=== PATIENT | male | born 1955 | race American Indian/Alaskan Native ===

== ENCOUNTER 2016-12-07 13:26 | Inpatient (IN) | payer MEDICARE ==
[2016-12-07 14:25] LABS: Eosinophils % (Auto) 1.9 % (0.0-4.3); Hemoglobin 6.4 gm/dl (11.8-15.2); Mean Corpuscular HGB Conc 32 % (32-34); Mean Corpuscular Hemoglobin 32 pg (28-32); Mean Corpuscular Volume 98 fl (84-94); Platelet Count 154 K/mm3 (140-440); Red Blood Count 2.03 M/mm3 (3.65-5.03); Red Cell Distribution Width 21.5 % (13.2-15.2); White Blood Count 6.4 K/mm3 (4.5-11.0)
[2016-12-07 14:34] LABS: Albumin/Globulin Ratio 0.6 %; BUN/Creatinine Ratio 8.35; Bilirubin,Total 0.5 mg/dL (0.1-1.2); Calcium 8.3 mg/dL (8.4-10.2); Chloride 96.6 mmol/L (98-107); Potassium 3.6 mmol/L (3.6-5.0); Total Protein 8.1 g/dL (6.3-8.2)
[2016-12-07] MEDS ORDERED: NACL 0.9% 500 ML 500 ML IV ONE (15:10)
[2016-12-07] MEDS ORDERED: DUONEB *Not for PRN Use IH (16:05)
[2016-12-07 16:11] LABS: INR 1.39 (0.87-1.13)
[2016-12-07 16:12] LABS: Partial Thromboplastin Time 40.3 Sec. (24.2-36.6)
[2016-12-07] MEDS ORDERED: PROVENTIL IH PRN (16:14)
--- NOTE | 2016-12-07 16:53 | History and Physical Report ---
History of Present Illness History of present illness: 61 YO male with ESRD on HD(T,R,Sa,) HTN, COPD, AIDS, Nicotine Dependence, presents to ED for evaluation. Pt states that he has been feeling weak and tired for the past 2 weeks, with worsening symptoms over the past 2 days. Pt states that he went to dialysis today but was told he could not have dialysis due to low RBC count. Pt denies fever, chills, CP, Palpitations, NVD, Syncope, Trauma, productive cough, or recent ill contacts. Past History Past Medical History: COPD, ESRD, hypertension, other (Nicotine Dependence) Past Surgical History: Other (AV fistula) Social history: single, smoking. denies: alcohol abuse, prescription drug abuse , IV drug use Family history: diabetes, hypertension Medications and Allergies Allergies Allergy/AdvReac Type Severity Reaction Status Date / Time No Known Allergies Allergy Unverified 12/07/16 13:48 Home Medications Medication Instructions Recorded Confirmed Last Taken Type ALBUTEROL Inhaler [ProAir HFA 8.5 gram IH Q4-6H PRN MDD 4 12/07/16 12/07/16 Unknown History Inhaler] Albuterol Sulfate [Ventolin HFA] 8 gram IH PRN PRN 12/07/16 12/07/16 Unknown History Aspirin EC [Aspirin Enteric Coated 81 mg PO DAILY 12/07/16 12/07/16 Unknown History TAB] AtorvaSTATin [Lipitor] 20 mg PO QHS 12/07/16 12/07/16 Unknown History Dapsone [Dapsone] 100 mg PO DAILY 12/07/16 12/07/16 Unknown History Darunavir [Prezista] 800 mg PO DAILY 12/07/16 12/07/16 Unknown History Darunavir [Prezista] 800 mg PO DAILY 12/07/16 12/07/16 Unknown History Pnv with Ca#74/Iron/Folic Acid 1 tab PO DAILY 12/07/16 12/07/16 Unknown History [Vol-Plus Tablet] Ritonavir [Norvir] 100 mg PO DAILY 12/07/16 12/07/16 Unknown History Sevelamer Carbonate [Renvela] 800 mg PO TID 12/07/16 12/07/16 Unknown History Tenofovir [Viread] 300 mg PO DAILY 12/07/16 12/07/16 Unknown History Tiotropium [Spiriva] 1 puff IH DAILY 12/07/16 12/07/16 Unknown History amLODIPine [Norvasc] 10 mg PO DAILY 12/07/16 12/07/16 Unknown History lamiVUDine [Epivir Hbv] 75 mg PO DAILY 12/07/16 12/07/16 Unknown History Active Meds: Active Medications Acetaminophen (Tylenol) 650 mg PO Q4H PRN PRN Reason: Pain MILD(1-3)/Fever >100.5/YATES Albuterol (Proventil) 2.5 mg IH Q4HRT PRN PRN Reason: Wheezing Review of Systems All systems: negative Constitutional: fatigue, weakness, no weight gain Ears, nose, mouth and throat: no ear pain Cardiovascular: no chest pain Respiratory: no cough Gastrointestinal: no abdominal pain Genitourinary Male: no dysuria Rectal: no pain Musculoskeletal: no neck pain Integumentary: no rash Neurological: no head injury Psychiatric: no anxiety Endocrine: no cold intolerance Hematologic/Lymphatic: no easy bruising Allergic/Immunologic: no urticaria Exam - Constitutional Vitals: Temp Pulse Resp BP Pulse Ox 98.2 F 92 H 26 H 129/84 94 12/07/16 15:42 12/07/16 15:21 12/07/16 15:21 12/07/16 15:21 12/07/16 15:21 General appearance: Present: mild distress, cachectic, disheveled, malodorous - EENT Eyes: Present: PERRL ENT: hearing intact, clear oral mucosa - Neck Neck: Present: supple, normal ROM - Respiratory Respiratory effort: normal Respiratory: bilateral: CTA - Cardiovascular Heart Sounds: Present: S1 & S2. Absent: rub, click - Extremities Extremities: pulses symmetrical, No edema Peripheral Pulses: within normal limits - Abdominal General gastrointestinal: Present: soft, non-tender, distended, normal bowel sounds, other (Ascites, positive fluid wave). Absent: hepatomegaly, splenomegaly Male genitourinary: Present: normal - Rectal Rectal Exam: normal exam-external/orifice - Integumentary Integumentary: Present: clear, warm, dry - Musculoskeletal Musculoskeletal: generalized weakness - Psychiatric Psychiatric: appropriate mood/affect, intact judgment & insight - Neurologic Neurologic: CNII-XII intact, moves all extremities Results - Labs CBC & Chem 7: 12/07/16 13:58 12/07/16 13:58 Labs: Abnormal lab results 12/07/16 12/07/16 12/07/16 Range/Units 13:58 13:58 15:29 RBC 2.03 L (3.65-5.03) M/mm3 Hgb 6.4 L (11.8-15.2) gm/dl Hct 20.0 L (35.5-45.6) % MCV 98 H (84-94) fl RDW 21.5 H (13.2-15.2) % Lymph # 1.1 L (1.2-5.4) K/mm3 Seg Neutrophils % 73.7 H (40.0-70.0) % PT 17.8 H (12.2-14.9) Sec. INR 1.39 H (0.87-1.13) APTT 40.3 H (24.2-36.6) Sec. Chloride 96.6 L (98-107) mmol/L Carbon Dioxide 20 L (22-30) mmol/L BUN 56 H (9-20) mg/dL Creatinine 6.7 H (0.8-1.5) mg/dL Glucose 126 H (75-100) mg/dL Calcium 8.3 L (8.4-10.2) mg/dL Phosphorus (2.5-4.5) mg/dL AST 51 H (5-40) units/L Alkaline Phosphatase 142 H (35-129) units/L Albumin 3.0 L (3.9-5) g/dL Crossmatch 12/07/16 12/07/16 Range/Units 15:29 15:29 RBC (3.65-5.03) M/mm3 Hgb (11.8-15.2) gm/dl Hct (35.5-45.6) % MCV (84-94) fl RDW (13.2-15.2) % Lymph # (1.2-5.4) K/mm3 Seg Neutrophils % (40.0-70.0) % PT (12.2-14.9) Sec. INR (0.87-1.13) APTT (24.2-36.6) Sec. Chloride (98-107) mmol/L Carbon Dioxide (22-30) mmol/L BUN (9-20) mg/dL Creatinine (0.8-1.5) mg/dL Glucose (75-100) mg/dL Calcium (8.4-10.2) mg/dL Phosphorus 5.80 H (2.5-4.5) mg/dL AST (5-40) units/L Alkaline Phosphatase (35-129) units/L Albumin (3.9-5) g/dL Crossmatch See Detail Assessment and Plan - Patient Problems (1) Blood loss anemia Current Visit: Yes Status: Acute Plan to address problem: Symptomatic Anemia: PRBC transfusion with dialysis, epogen as per nephrology, repeat cbc (2) End stage renal disease on dialysis Current Visit: Yes Status: Acute Plan to address problem: Nephrology consulted, (3) Metabolic acidosis Current Visit: Yes Status: Acute Plan to address problem: supportive care, dialysis as per renal, resume home medication. (4) Severe malnutrition Current Visit: Yes Status: Acute Plan to address problem: encourage increased protein intake, (5) AIDS Current Visit: Yes Status: Acute Plan to address problem: Resume home medication. (6) DVT prophylaxis Current Visit: Yes Status: Acute
--- NOTE | 2016-12-07 17:07 | Emergency Department Report ---
ED General Adult HPI - General Chief complaint: Dyspnea/Respdistress Stated complaint: LOW BLOODWORK Time Seen by Provider: 12/07/16 15:08 Source: patient, EMS Mode of arrival: Wheelchair Limitations: Physical Limitation - History of Present Illness Initial comments: Patient was sent from [facility] and not dialyzed because of a low blood count. The patient is a rather poor historian. However he does admit that he has been feeling weak "for a while". He also does complain of dyspnea on exertion but not at rest. Patient does have a fistula in his left arm. His last dialysis was on . He states he has never had a transfusion of blood. He denies any recent signs of GI bleeding. He states he was admitted to a hospital and had black stool about a year ago. He refuses rectal exam now he states because he is not having any signs of bleeding since then. He does not know what hospital he was admitted to. He does not know who his dialysis doctor is. He denies any current pain. -: unknown Severity scale (0 -10): 0 Associated Symptoms: shortness of breath, weakness Treatments Prior to Arrival: none - Related Data Allergies Allergy/AdvReac Type Severity Reaction Status Date / Time No Known Allergies Allergy Unverified 12/07/16 13:48 ED Review of Systems ROS: Stated complaint: LOW BLOODWORK Other details as noted in HPI Constitutional: weakness. denies: chills, fever Eyes: denies: eye pain, eye discharge, vision change ENT: denies: ear pain, throat pain Respiratory: shortness of breath. denies: cough, wheezing Cardiovascular: denies: chest pain, palpitations Endocrine: no symptoms reported Gastrointestinal: denies: abdominal pain, nausea, diarrhea Genitourinary: denies: urgency, dysuria Musculoskeletal: denies: back pain, joint swelling, arthralgia Skin: denies: rash, lesions Neurological: denies: headache, weakness, paresthesias Psychiatric: denies: anxiety, depression Hematological/Lymphatic: denies: easy bleeding, easy bruising ED Past Medical Hx - Past Medical History Hx Hypertension: Yes Hx Renal Disease: Yes Hx COPD: Yes - Surgical History Additional Surgical History: AV Graft right arm - Social History Smoking Status: Current Every Day Smoker Substance Use Type: None ED Physical Exam - General Limitations: Physical Limitation General appearance: alert, in no apparent distress, cachectic - Head Head exam: Present: atraumatic, normocephalic - Eye Eye exam: Present: normal appearance. Absent: scleral icterus - ENT ENT exam: Present: mucous membranes moist - Neck Neck exam: Present: normal inspection - Respiratory Respiratory exam: Present: normal lung sounds bilaterally, other (thoracic muscle wasting is very evident.). Absent: respiratory distress - Cardiovascular Cardiovascular Exam: Present: regular rate, normal rhythm. Absent: systolic murmur, diastolic murmur, rubs, gallop - GI/Abdominal GI/Abdominal exam: Present: soft, normal bowel sounds, other (I couldn't exclude ascites). Absent: distended, tenderness, guarding, rebound, rigid, organomegaly - Rectal Rectal exam: Present: other (refused) - Extremities Exam Extremities exam: Present: normal inspection, normal capillary refill. Absent: pedal edema, joint swelling, calf tenderness - Back Exam Back exam: Present: normal inspection - Neurological Exam Neurological exam: Present: alert, oriented X3, CN II-XII intact. Absent: motor sensory deficit - Psychiatric Psychiatric exam: Present: normal mood, flat affect - Skin Skin exam: Present: warm, dry, intact, normal color. Absent: rash ED Course Vital Signs 12/07/16 12/07/16 12/07/16 13:39 15:11 15:15 Temperature 98.7 F Pulse Rate 102 H 93 H Respiratory 22 16 21 Rate Blood Pressure 139/82 Blood Pressure 139/82 [Right] O2 Sat by Pulse 96 96 Oximetry 12/07/16 12/07/16 15:21 15:42 Temperature 98.2 F Pulse Rate 92 H Respiratory 26 H Rate Blood Pressure 129/84 Blood Pressure [Right] O2 Sat by Pulse 94 Oximetry - Reevaluation(s) Reevaluation #1: 1 unit of packed red blood cells was ordered. The patient is referred to Dr. Connor further care and admission is stable condition. 12/07/16 17:10 ED Medical Decision Making - Lab Data Result diagrams: 12/07/16 13:58 12/07/16 13:58 Laboratory Results - last 24 hr 12/07/16 12/07/16 12/07/16 13:58 13:58 15:29 WBC 6.4 RBC 2.03 L Hgb 6.4 L Hct 20.0 L MCV 98 H MCH 32 MCHC 32 RDW 21.5 H Plt Count 154 Lymph % (Auto) 16.6 [place] % (Auto) 6.8 Eos % (Auto) 1.9 Baso % (Auto) 1.0 Lymph # 1.1 L [place] # 0.4 Eos # 0.1 Baso # 0.1 Seg Neutrophils % 73.7 H Seg Neutrophils # 4.7 PT 17.8 H INR 1.39 H APTT 40.3 H Sodium 138 Potassium 3.6 Chloride 96.6 L Carbon Dioxide 20 L Anion Gap 25 BUN 56 H Creatinine 6.7 H Estimated GFR 10 BUN/Creatinine Ratio 8.35 Glucose 126 H Calcium 8.3 L Phosphorus Total Bilirubin 0.50 AST 51 H ALT 43 Alkaline Phosphatase 142 H Total Protein 8.1 Albumin 3.0 L Albumin/Globulin Ratio 0.6 Blood Type Antibody Screen VLADIMIR Antibody Screen Crossmatch 12/07/16 12/07/16 15:29 15:29 WBC RBC Hgb Hct MCV MCH MCHC RDW Plt Count Lymph % (Auto) [place] % (Auto) Eos % (Auto) Baso % (Auto) Lymph # [place] # Eos # Baso # Seg Neutrophils % Seg Neutrophils # PT INR APTT Sodium Potassium Chloride Carbon Dioxide Anion Gap BUN Creatinine Estimated GFR BUN/Creatinine Ratio Glucose Calcium Phosphorus 5.80 H Total Bilirubin AST ALT Alkaline Phosphatase Total Protein Albumin Albumin/Globulin Ratio Blood Type A POSITIVE Antibody Screen TNR VLADIMIR Antibody Screen Negative Crossmatch See Detail - EKG Data -: EKG Interpreted by Me EKG shows normal: sinus rhythm Rate: normal - EKG Data Interpretation: nonspecific ST-T wave dario, other (biatrial abnormality/ enlargement. QS V2 consistent with old septal infarct. No acute ischemic changes.) - Radiology Data interpreted by me: Chest x-ray reveals cardiomegaly. No evidence of acute decompensation. Critical care attestation.: If time is entered above; I have spent that time in minutes in the direct care of this critically ill patient, excluding procedure time. ED Disposition Clinical Impression: Symptomatic anemia, End stage renal disease on dialysis, Hyperphosphatemia, Coagulopathy Cardiomyopathy Qualifiers: Cardiomyopathy type: unspecified Qualified Code(s): I42.9 - Cardiomyopathy, unspecified Disposition: 09 OP ADMIT IP TO THIS HOSP Is pt being admited?: Yes Does the pt Need Aspirin: No Condition: Stable Referrals: PRIMARY CARE, [Primary Care Provider] - 3-5 Days Time of Disposition: 17:11
--- NOTE | 2016-12-07 18:32 | XRay Report ---
FINAL REPORT PROCEDURE: XR CHEST 1V AP TECHNIQUE: Chest radiograph anteroposterior view. CPT 42746 HISTORY: Dyspnea COMPARISON: No prior studies are available for comparison. FINDINGS: Heart: Normal. Mediastinum/Vessels: Aortic calcification. Lungs/Pleural space: No infiltrate, effusion, or pneumothorax. Bony thorax: No acute osseous abnormality. Life support devices: None. IMPRESSION: No radiographic evidence of acute cardiopulmonary abnormality.
[2016-12-07] MEDS ORDERED: NACL 0.9% 500 ML 500 ML ONE (22:49)
[2016-12-08 10:36] LABS: Hemoglobin 6.2 gm/dl (11.8-15.2)
[2016-12-08 10:38] LABS: Hematocrit 18.9 % (35.5-45.6)
--- NOTE | 2016-12-08 11:18 | Progress Note ---
Assessment and Plan Assessment and plan: 61 YO male with ESRD on HD(T,R,Sa,) HTN, COPD, AIDS, Nicotine Dependence, presents to ED for evaluation. Pt states that he has been feeling weak and tired for the past 2 weeks, with worsening symptoms over the past 2 days. Acute Blood loss anemia, symptomatic Hg is still not improved will transfuse another PRBC today CT abdomen to r/o peritoneal bleed, or ascites epogen as per nephrology, repeat cbc after transfusion GI consult End stage renal disease on dialysis Nephrology consulted, ccontinue HD Metabolic acidosis Due to ESRD supportive care, dialysis as per renal, resume home medication. 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 He feels very weak and exhausted. Denies bloody stools. Denies melena. Hospitalist Physical - Physical exam Narrative exam: General: Patient appears well in no distress, cachectic HEENT: MMM, EOMI cardiac: S1-S2 heard lungs: clear to auscultation, abdomen: soft, distended, non tender, shifting dullness extremities: no edema clubbing or cyanosis Skin: no rash or lesion Neuro: no focal deficit Psych: appropriate behavior and mood, cognition intact - Constitutional Vitals: Temp Pulse Resp BP Pulse Ox 98.5 F 92 H 22 130/82 97 12/08/16 08:00 12/08/16 08:00 12/08/16 08:00 12/08/16 08:00 12/08/16 08:00 General appearance: Present: mild distress, cachectic, disheveled, malodorous Results - Labs CBC & Chem 7: 12/08/16 10:23 12/07/16 13:58 Labs: Laboratory Last Values WBC 6.4 K/mm3 (4.5-11.0) 12/07/16 13:58 RBC 2.03 M/mm3 (3.65-5.03) L 12/07/16 13:58 Hgb 6.2 gm/dl (11.8-15.2) L 12/08/16 10:23 Hct 18.9 % (35.5-45.6) L* 12/08/16 10:23 MCV 98 fl (84-94) H 12/07/16 13:58 MCH 32 pg (28-32) 12/07/16 13:58 MCHC 32 % (32-34) 12/07/16 13:58 RDW 21.5 % (13.2-15.2) H 12/07/16 13:58 Plt Count 154 K/mm3 (140-440) 12/07/16 13:58 Lymph % (Auto) 16.6 % (13.4-35.0) 12/07/16 13:58 [place] % (Auto) 6.8 % (0.0-7.3) 12/07/16 13:58 Eos % (Auto) 1.9 % (0.0-4.3) 12/07/16 13:58 Baso % (Auto) 1.0 % (0.0-1.8) 12/07/16 13:58 Lymph # 1.1 K/mm3 (1.2-5.4) L 12/07/16 13:58 [place] # 0.4 K/mm3 (0.0-0.8) 12/07/16 13:58 Eos # 0.1 K/mm3 (0.0-0.4) 12/07/16 13:58 Baso # 0.1 K/mm3 (0.0-0.1) 12/07/16 13:58 Seg Neutrophils % 73.7 % (40.0-70.0) H 12/07/16 13:58 Seg Neutrophils # 4.7 K/mm3 (1.8-7.7) 12/07/16 13:58 PT 17.8 Sec. (12.2-14.9) H 12/07/16 15:29 INR 1.39 (0.87-1.13) H 12/07/16 15:29 APTT 40.3 Sec. (24.2-36.6) H 12/07/16 15:29 Sodium 138 mmol/L (137-145) 12/07/16 13:58 Potassium 3.6 mmol/L (3.6-5.0) 12/07/16 13:58 Chloride 96.6 mmol/L (98-107) L 12/07/16 13:58 Carbon Dioxide 20 mmol/L (22-30) L 12/07/16 13:58 Anion Gap 25 mmol/L 12/07/16 13:58 BUN 56 mg/dL (9-20) H 12/07/16 13:58 Creatinine 6.7 mg/dL (0.8-1.5) H 12/07/16 13:58 Estimated GFR 10 ml/min 12/07/16 13:58 BUN/Creatinine Ratio 8.35 % 12/07/16 13:58 Glucose 126 mg/dL (75-100) H 12/07/16 13:58 Calcium 8.3 mg/dL (8.4-10.2) L 12/07/16 13:58 Phosphorus 5.80 mg/dL (2.5-4.5) H 12/07/16 15:29 Total Bilirubin 0.50 mg/dL (0.1-1.2) 12/07/16 13:58 AST 51 units/L (5-40) H 12/07/16 13:58 ALT 43 units/L (7-56) 12/07/16 13:58 Alkaline Phosphatase 142 units/L (35-129) H 12/07/16 13:58 Total Protein 8.1 g/dL (6.3-8.2) 12/07/16 13:58 Albumin 3.0 g/dL (3.9-5) L 12/07/16 13:58 Albumin/Globulin Ratio 0.6 % 12/07/16 13:58 Blood Type A POSITIVE 12/07/16 15:29 Antibody Screen TNR 12/07/16 15:29 VLADIMIR Antibody Screen Negative 12/07/16 15:29 Crossmatch See Detail 12/07/16 15:29
[2016-12-08] MEDS ORDERED: NACL 0.9% 500 ML 500 ML IV NR (11:30)
[2016-12-08] MEDS: TYLENOL PO PRN (13:59)
--- NOTE | 2016-12-08 14:11 | Consultation ---
History of Present Illness - Reason for Consult Consult date: 12/08/16 end stage renal disease - History of Present Illness Patient is a 61 YO AAM with history significant for ESRD on HD(TTS), HTN, COPD, HIV / AIDS and Nicotine Dependence, presented to the ER with 2 weeks h/o feeling weak and tired, with worsening symptoms over the past 2 days. Pt states that he went to dialysis yesterday but was told he could not have dialysis due to low RBC count. His Hb was 6.4 yesterday and after one unit of PRBC it is 6.2 today. Patient is currently receiving 2nd unit of PRBC. 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 Pt denies fever, chills, CP, N, V, D, dizziness, Syncope or recent ill contacts. Past History Past Medical History: COPD, ESRD, hypertension, other (Nicotine Dependence) Past Surgical History: Other (AV fistula) Social history: single, smoking. denies: alcohol abuse, prescription drug abuse , IV drug use Family history: diabetes, hypertension Medications and Allergies Allergies Allergy/AdvReac Type Severity Reaction Status Date / Time No Known Allergies Allergy Unverified 12/07/16 13:48 Home Medications Medication Instructions Recorded Confirmed Last Taken Type ALBUTEROL Inhaler [ProAir HFA 8.5 gram IH Q4-6H PRN MDD 4 12/07/16 12/07/16 Unknown History Inhaler] Albuterol Sulfate [Ventolin HFA] 8 gram IH PRN PRN 12/07/16 12/07/16 Unknown History Aspirin EC [Aspirin Enteric Coated 81 mg PO DAILY 12/07/16 12/07/16 Unknown History TAB] AtorvaSTATin [Lipitor] 20 mg PO QHS 12/07/16 12/07/16 Unknown History Dapsone [Dapsone] 100 mg PO DAILY 12/07/16 12/07/16 Unknown History Darunavir [Prezista] 800 mg PO DAILY 12/07/16 12/07/16 Unknown History Darunavir [Prezista] 800 mg PO DAILY 12/07/16 12/07/16 Unknown History Pnv with Ca#74/Iron/Folic Acid 1 tab PO DAILY 12/07/16 12/07/16 Unknown History [Vol-Plus Tablet] Ritonavir [Norvir] 100 mg PO DAILY 12/07/16 12/07/16 Unknown History Sevelamer Carbonate [Renvela] 800 mg PO TID 12/07/16 12/07/16 Unknown History Tenofovir [Viread] 300 mg PO DAILY 12/07/16 12/07/16 Unknown History Tiotropium [Spiriva] 1 puff IH DAILY 12/07/16 12/07/16 Unknown History amLODIPine [Norvasc] 10 mg PO DAILY 12/07/16 12/07/16 Unknown History lamiVUDine [Epivir Hbv] 75 mg PO DAILY 12/07/16 12/07/16 Unknown History Active Meds: Active Medications Acetaminophen (Tylenol) 650 mg PO Q4H PRN PRN Reason: Pain MILD(1-3)/Fever >100.5/YATES Last Admin: 12/08/16 13:59 Dose: 650 mg Albuterol (Proventil) 2.5 mg IH Q4HRT PRN PRN Reason: Wheezing Sodium Chloride (Nacl 0.9% 500 Ml) 500 mls @ 0 mls/hr IV ONCE NR PRN Reason: As Directed Stop: 12/08/16 15:30 Last Admin: 12/08/16 12:18 Dose: 50 mls/hr Sodium Chloride ([place]) 1 spray NS TID YEMI Review of Systems Constitutional: other, no weight loss, no weight gain, no fever, no chills Ears, nose, mouth and throat: no epistaxis Cardiovascular: no chest pain, no edema, no syncope, no lightheadedness, no shortness of breath Respiratory: no cough, no hemoptysis Gastrointestinal: no abdominal pain, no nausea, no vomiting, no diarrhea, no hematemesis, no BRBPR, no melena Genitourinary Male: no dysuria, no hematuria Rectal: no bleeding Integumentary: no rash Neurological: no syncope, no vertigo Hematologic/Lymphatic: no easy bleeding Exam - Vital Signs Vital signs: Vital Signs Temp Pulse Resp BP Pulse Ox 98.7 F 102 H 22 139/82 96 12/07/16 13:39 12/07/16 13:39 12/07/16 13:39 12/07/16 13:39 12/07/16 13:39 - General Appearance General appearance: well-developed, appears stated age, frail, other (no distress) EENT: ATNC, PERRL, hearing intact, vision intact Neck: Present: neck supple Respiratory: Clear to Ascultation Heart: regular, S1S2, no murmurs Gastrointestinal: Present: normoactive bowel sounds, distended, other. Absent: tenderness Integumentary: no rash Neurologic: no focal deficit, no asterixis, confused, disoriented Musculoskeletal: Present: other (no edema, left arm AVF) Psychiatric: mood/affect appropriate Results - Lab Results 12/08/16 10:23 12/07/16 13:58 Most recent lab results Calcium 8.3 mg/dL (8.4-10.2) L 12/07/16 13:58 Phosphorus 5.80 mg/dL (2.5-4.5) H 12/07/16 15:29 Assessment and Plan - Patient Problems (1) End stage renal disease on dialysis Current Visit: Yes Status: Chronic Plan to address problem: Missed hemodialysis yesterday. Plan to do hemodialysis tomorrow. (2) Blood loss anemia Current Visit: Yes Status: Acute Plan to address problem: S/p PRBC. Epogen. (3) AIDS Current Visit: Yes Status: Chronic
[2016-12-08] MEDS: DEEP SEA NS SCH ×2 (17:45→21:25)
--- NOTE | 2016-12-08 18:52 | Cat Scan Report ---
FINAL REPORT EXAM: CT ABDOMEN PELVIS WO CON HISTORY: anemia, abdominal distension TECHNIQUE: CT images obtained through the Abdomen and Pelvis without contrast. Transaxial,coronal and sagittal reformats are provided. PRIORS: None. FINDINGS: Cardiomegaly with coronary artery disease. Trace pleural effusions. Sequela of COPD. Large volume of abdominal and pelvic ascites. Nodular contour of the liver. No cholelithiasis. Vascular coils are present in the superior mesenteric region with associated dense streak artifact. The visualized portions of the pancreatic body and tail are unremarkable. Enlarged portal vein. Splenic size is within normal limits. The adrenal glands are not well seen. Multicystic diminutive kidneys. No definite nephrolithiasis or hydroureteronephrosis. No stone seen within the urinary bladder. Pelvic phleboliths are present. Mildly tortuous normal caliber aorta with densely scattered atherosclerosis. Hollow enteric organs are normal in course and caliber. Sigmoid diverticulosis. Normal caliber air-filled appendix. No pneumoperitoneum. Dense sclerosis of the skeleton may be secondary to reported anemia. No acute or aggressive appearing skeletal findings. IMPRESSION: Nodular contour of the liver may be secondary to cirrhosis with portal hypertension. Clinical correlation is requested. Diminutive multi-cystic kidneys. Correlation with chronic renal failure is requested. Large volume of abdominal and pelvic ascites may be secondary to hepatic and/or renal findings as above. Combination of ascites and vascular coils compromises evaluation of the adrenal glands and much of the pancreas.
[2016-12-09] MEDS: TYLENOL PO PRN ×2 (01:48→20:53)
[2016-12-09 06:20] LABS: Basophils % (Auto) 1.1 % (0.0-1.8); Eosinophils % (Auto) 1.5 % (0.0-4.3); Hematocrit 20.2 % (35.5-45.6); Hemoglobin 6.7 gm/dl (11.8-15.2); Mean Corpuscular HGB Conc 33 % (32-34); Mean Corpuscular Hemoglobin 31 pg (28-32); Mean Corpuscular Volume 93 fl (84-94); Platelet Count 115 K/mm3 (140-440); Red Blood Count 2.17 M/mm3 (3.65-5.03); Red Cell Distribution Width 20.7 % (13.2-15.2); White Blood Count 6.1 K/mm3 (4.5-11.0)
[2016-12-09 06:44] LABS: BUN/Creatinine Ratio 9.36; Calcium 8.2 mg/dL (8.4-10.2); Chloride 98.9 mmol/L (98-107); Potassium 4.6 mmol/L (3.6-5.0)
--- NOTE | 2016-12-09 09:40 | Gastroenterology Consultation ---
History of Present Illness - Reason for Consult Consult date: 12/09/16 anemia Requesting physician: RICCO MALIK - History of Present Illness Patient is a 61 y/o male who was sent to ER from [facility] due to low blood count. He states he has been feeling tired and weak x 2 weeks with SOB. On admission HGB was 6.4. Denies active signs of bleeding such as hematemesis, melena, or hematochezia. Also denies CP, dizziness, abd pain, N/V, fever, jaundice, pruritus, diarrhea, or constipation.Reports BM x 1 this morning with brown stool. No NSAID use. No Fhx of colon CA. Reports having and EGD/colonoscopy in the past but cannot recall provider or how long ago. Pt is a poor historian. Admits to possible liver disease, unsure if he has hepatitis C. Reports ETOH abuse in the past but denies alcohol use for several months. PMH significant for ESRD on HD, HTN, COPD, AIDS, and nicotine dependence. Past History Past Medical History: COPD, ESRD, HIV/AIDS, hypertension, other (Nicotine Dependence) Past Surgical History: Other (AV fistula) Social history: single, smoking. denies: alcohol abuse, prescription drug abuse , IV drug use Family history: diabetes, hypertension Medications and Allergies Allergies Allergy/AdvReac Type Severity Reaction Status Date / Time No Known Allergies Allergy Unverified 12/07/16 13:48 Home Medications Medication Instructions Recorded Confirmed Last Taken Type ALBUTEROL Inhaler [ProAir HFA 8.5 gram IH Q4-6H PRN MDD 4 12/07/16 12/07/16 Unknown History Inhaler] Albuterol Sulfate [Ventolin HFA] 8 gram IH PRN PRN 12/07/16 12/07/16 Unknown History Aspirin EC [Aspirin Enteric Coated 81 mg PO DAILY 12/07/16 12/07/16 Unknown History TAB] AtorvaSTATin [Lipitor] 20 mg PO QHS 12/07/16 12/07/16 Unknown History Dapsone [Dapsone] 100 mg PO DAILY 12/07/16 12/07/16 Unknown History Darunavir [Prezista] 800 mg PO DAILY 12/07/16 12/07/16 Unknown History Darunavir [Prezista] 800 mg PO DAILY 12/07/16 12/07/16 Unknown History Pnv with Ca#74/Iron/Folic Acid 1 tab PO DAILY 12/07/16 12/07/16 Unknown History [Vol-Plus Tablet] Ritonavir [Norvir] 100 mg PO DAILY 12/07/16 12/07/16 Unknown History Sevelamer Carbonate [Renvela] 800 mg PO TID 12/07/16 12/07/16 Unknown History Tenofovir [Viread] 300 mg PO DAILY 12/07/16 12/07/16 Unknown History Tiotropium [Spiriva] 1 puff IH DAILY 12/07/16 12/07/16 Unknown History amLODIPine [Norvasc] 10 mg PO DAILY 12/07/16 12/07/16 Unknown History lamiVUDine [Epivir Hbv] 75 mg PO DAILY 12/07/16 12/07/16 Unknown History Active Meds: Active Medications Acetaminophen (Tylenol) 650 mg PO Q4H PRN PRN Reason: Pain MILD(1-3)/Fever >100.5/YATES Last Admin: 12/09/16 01:48 Dose: 650 mg Albuterol (Proventil) 2.5 mg IH Q4HRT PRN PRN Reason: Wheezing Sodium Chloride (Deep Sea) 1 spray NS TID YEMI Last Admin: 12/08/16 21:25 Dose: 1 spray Review of Systems - Review of Systems All systems: negative Constitutional: fatigue, weakness Respiratory: shortness of breath Gastrointestinal: no abdominal pain, no nausea, no vomiting, no diarrhea, no hematemesis, no coffee ground emesis, no BRBPR, no melena, no hematochezia Exam - Constitutional Vital Signs: Temp Pulse Resp BP Pulse Ox 97.9 F 82 16 145/88 97 12/09/16 07:00 12/09/16 07:00 12/09/16 07:00 12/09/16 07:00 12/09/16 07:00 General appearance: no acute distress, cachectic, malodorous - EENT Eyes: PERRL, EOM intact ENT: hearing intact - Neck Neck: normal ROM - Respiratory Respiratory: left: CTA (anterior) - Cardiovascular Rhythm: regular Heart Sounds: Present: S1 & S2 Extremities: No edema - Gastrointestinal General gastrointestinal: Present: soft, non-tender, distended, normal bowel sounds - Integumentary Integumentary: Present: warm, dry - Neurologic Neurological: alert and oriented x3 - Psychiatric Psychiatric: appropriate mood/affect, cooperative - Labs CBC & Chem 7: 12/09/16 05:28 12/09/16 05:28 Lab Results: Laboratory Results - last 24 hr 12/08/16 12/09/16 12/09/16 10:23 05:28 05:28 WBC 6.1 RBC 2.17 L Hgb 6.2 L 6.7 L Hct 18.9 L* 20.2 L MCV 93 D MCH 31 MCHC 33 RDW 20.7 H Plt Count 115 L Lymph % (Auto) 20.7 [place] % (Auto) 8.0 H Eos % (Auto) 1.5 Baso % (Auto) 1.1 Lymph # 1.3 [place] # 0.5 Eos # 0.1 Baso # 0.1 Seg Neutrophils % 68.7 Seg Neutrophils # 4.2 Sodium 137 Potassium 4.6 D Chloride 98.9 Carbon Dioxide 17 L Anion Gap 26 BUN 74 H Creatinine 7.9 H Estimated GFR 8 BUN/Creatinine Ratio 9.36 Glucose 76 Calcium 8.2 L Assessment and Plan 1.anemia 2.cirrhosis 2.ESRD 3.AIDS -HGB 6.7 today- s/p 2 units of PRBCs -continue to monitor H&H and transfuse as needed -hold blood thinning medications -no active signs of bleeding -will start on daily PPI -Keep NPO after MN -will schedule for EGD in am -Abd CT revealed ascites and nodular contour of the liver, may be secondary to cirrhosis -most likely 2/2 h/o ETOH abuse, but will order hepatitis panel -pt will need an outpatient f/u appt for further evaluation of liver disease -will follow
--- NOTE | 2016-12-09 09:49 | Admit Criteria Form ---
Admission Criteria Documentation: ANEMIA, IRON DEFICIENCY OR UNSPECIFIED Clinical Indications for Inpatient Care (Place 'X' for any and all applicable criteria): Admission is indicated for ANY ONE of the following(1)(2)(3)(4)(5)(6)(7): [X] I. Inpatient admission required rather than observation care (Also use Anemia, Iron Deficiency or Unspecified: Observation Care guideline as appropriate) because of ANY ONE of the following: [] a) Hemodynamic instability that is severe or persistent [] b) Active bleeding that cannot be rapidly controlled [X] c) CVS symptoms (i.e., dyspnea, chest pain, heart failure) that are severe or persistent [] d) Neurologic symptoms (i.e., cognitive impairment, recurrent syncope or near syncope) that are severe or persistent [] e) Cardiac arrhythmias of immediate concern [] f) Acute peripheral ischemia (e.g., pulseless, cool, mottled, or cyanotic extremity) [] g) High-risk low platelet count [] h) Acute renal failure [] i) Ongoing transfusion for blood loss (greater than 2 units) [] j) IV fluid to replace significant ongoing (eg, >24 hours) losses (> 3 L/m2 per day) [] k) Pulmonary artery catheter monitoring [] l) Supplemental oxygen or respiratory treatments for over 24 hours that are performable only in acute inpatient setting [] m) Immediate inpatient surgery [] n) Other condition, treatment or monitoring requiring inpatient admission [] II Active massive hemorrhage [] III. Active hemolysis with rapidly progressive anemia [A](6) Extended stay beyond goal length of stay may be needed for (17)(18) []a) Diagnosed cause of anemia requiring longer hospitalization (eg, active GI bleeding, immune hemolysis requiring electrophoresis, complications of malignancy requiring acute care []b) Continued emergent anemia indicators (23) []c) Transfusion reactions []d) Associated leukopenia or thrombocytopenia needing inpatient care []e) Active comorbidities (eg, renal failure, heart failure) The original [facility] Care Guidelines content created by [facility] Care Guidelines has been revised. The portions of the content which have been revised are identified through the use of italic text or in bold. [facility] Guidelines has neither reviewed nor approved the modified material. All other unmodified content is copyright [facility] Care Guidelines. Please see references footnoted in the original [facility] edition 2016 Admission Criteria Met: Yes
[2016-12-09] MEDS ORDERED: NACL 0.9% 500 ML 500 ML IV ONE ×2 (10:00→13:00)
[2016-12-09] MEDS: DEEP SEA NS SCH ×3 (10:06→21:21)
--- NOTE | 2016-12-09 10:16 | Progress Note ---
Assessment and Plan Assessment and plan: Patient is a 61 yo man with ESRD on HD(T,R,Sa,) HTN, COPD, AIDS and Nicotine Dependence, presents to ED for weakness. Acute Blood loss anemia, symptomatic Hg is still not improved will transfuse another PRBC today CT abdomen to r/o peritoneal bleed, or ascites==> 12/08/2016 CT pelvis without contrast: Nodular contour of the liver may be secondary to cirrhosis with portal hypertension. Clinical correlation is requested. Diminutive multicystic kidneys. Correlation with chronic renal failure is requested. Large volume of abdominal and pelvic ascites may be secondary to hepatic and/or renal finding as above. Combination of ascites and vascular coils compromises evaluation adrenal gland and much of the pancreas. epogen as per nephrology, repeat cbc after transfusion GI consulted End stage renal disease on dialysis Nephrology consulted, ccontinue HD Metabolic acidosis Due to ESRD supportive care, dialysis as per renal, resume home medication. Severe malnutrition encourage increased protein intake, [employer] consult AIDS Resume retroviral meds Tobacco abuse counseling performed DVT prophylaxis scds in in light of anemia 12/09/2016 (assume care patient): Worsening acute on chronic anemia of chronic disease status post 2 units, repeat hemoglobin is only 6.7, will transfuse another unit of packed red blood cell, ordered fecal occult blood testing and Dulcolax suppository 1. The high probability of a clinically significant, sudden or life threatening deterioration of the [neurologic,cardiac] system(s) required my full and direct attention, intervention and personal management. The aggregate critical care time was [ 34 ] minutes. This time is in addition to time spent performing reported procedures but includes the following: [x] Data Review and interpretation [x] Patient assessment and monitoring of vital signs [x] Documentation [x] Medication orders and management RN notify me that a family member wants patient to be transferred to [place] but they don't have a current physician to accept, patient did not asked to be transferred History Interval history: Patient seen and examined. Follow up on current diagnosis/weakness. Overnight uneventful. No cp, sob, n/v or severe headaches. Imaging, old records, testing, labs, nursing notes reviewed. Hospitalist Physical - Physical exam Narrative exam: GEN: Thin frail cachectic man NAD, AWAKE, ALERT, ORIENTATED x 3 HEENT: , PERRL, OP DRY NECK: SUPPLE, NO THYROMEGALY, NO JVD, NO LAD CVS: RRR, NORMAL S1S2 LUNGS/CHEST: CTA B, NORMAL CHEST EXPANSION B, GOOD AIR ENTRY B ABD: SOFT, NTND, GBS, NO REBOUND OR GUARDING EXT/SKIN: NO SIGNIFICANT EDEMA OR RASH MSK: FROM X 4 EXTREMITIES NEURO: CN 2-12 GROSSLY INTACT, NO FOCAL DEFICITS PSY: CALM - Constitutional Vitals: Temp Pulse Resp BP Pulse Ox 97.9 F 82 16 145/88 97 12/09/16 07:00 12/09/16 07:00 12/09/16 07:00 12/09/16 07:00 12/09/16 07:00 General appearance: Present: cachectic, disheveled Results - Labs CBC & Chem 7: 12/09/16 05:28 12/09/16 05:28 Labs: Laboratory Last Values WBC 6.1 K/mm3 (4.5-11.0) 12/09/16 05:28 RBC 2.17 M/mm3 (3.65-5.03) L 12/09/16 05:28 Hgb 6.7 gm/dl (11.8-15.2) L 12/09/16 05:28 Hct 20.2 % (35.5-45.6) L 12/09/16 05:28 MCV 93 fl (84-94) D 12/09/16 05:28 MCH 31 pg (28-32) 12/09/16 05:28 MCHC 33 % (32-34) 12/09/16 05:28 RDW 20.7 % (13.2-15.2) H 12/09/16 05:28 Plt Count 115 K/mm3 (140-440) L 12/09/16 05:28 Lymph % (Auto) 20.7 % (13.4-35.0) 12/09/16 05:28 [place] % (Auto) 8.0 % (0.0-7.3) H 12/09/16 05:28 Eos % (Auto) 1.5 % (0.0-4.3) 12/09/16 05:28 Baso % (Auto) 1.1 % (0.0-1.8) 12/09/16 05:28 Lymph # 1.3 K/mm3 (1.2-5.4) 12/09/16 05:28 [place] # 0.5 K/mm3 (0.0-0.8) 12/09/16 05:28 Eos # 0.1 K/mm3 (0.0-0.4) 12/09/16 05:28 Baso # 0.1 K/mm3 (0.0-0.1) 12/09/16 05:28 Seg Neutrophils % 68.7 % (40.0-70.0) 12/09/16 05:28 Seg Neutrophils # 4.2 K/mm3 (1.8-7.7) 12/09/16 05:28 PT 17.8 Sec. (12.2-14.9) H 12/07/16 15:29 INR 1.39 (0.87-1.13) H 12/07/16 15:29 APTT 40.3 Sec. (24.2-36.6) H 12/07/16 15:29 Sodium 137 mmol/L (137-145) 12/09/16 05:28 Potassium 4.6 mmol/L (3.6-5.0) D 12/09/16 05:28 Chloride 98.9 mmol/L (98-107) 12/09/16 05:28 Carbon Dioxide 17 mmol/L (22-30) L 12/09/16 05:28 Anion Gap 26 mmol/L 12/09/16 05:28 BUN 74 mg/dL (9-20) H 12/09/16 05:28 Creatinine 7.9 mg/dL (0.8-1.5) H 12/09/16 05:28 Estimated GFR 8 ml/min 12/09/16 05:28 BUN/Creatinine Ratio 9.36 % 12/09/16 05:28 Glucose 76 mg/dL (75-100) 12/09/16 05:28 Calcium 8.2 mg/dL (8.4-10.2) L 12/09/16 05:28 Phosphorus 5.80 mg/dL (2.5-4.5) H 12/07/16 15:29 Total Bilirubin 0.50 mg/dL (0.1-1.2) 12/07/16 13:58 AST 51 units/L (5-40) H 12/07/16 13:58 ALT 43 units/L (7-56) 12/07/16 13:58 Alkaline Phosphatase 142 units/L (35-129) H 12/07/16 13:58 Total Protein 8.1 g/dL (6.3-8.2) 12/07/16 13:58 Albumin 3.0 g/dL (3.9-5) L 12/07/16 13:58 Albumin/Globulin Ratio 0.6 % 12/07/16 13:58 Blood Type A POSITIVE 12/07/16 15:29 Antibody Screen TNR 12/07/16 15:29 VLADIMIR Antibody Screen Negative 12/07/16 15:29 Crossmatch See Detail 12/07/16 15:29
[2016-12-09] MEDS: PROTONIX PO SCH (10:30)
[2016-12-09 11:37] LABS: Hematocrit 22.6 % (35.5-45.6); Hemoglobin 7.4 gm/dl (11.8-15.2)
[2016-12-09] MEDS ORDERED: DULCOLAX PR ONE (12:00)
[2016-12-10 05:37] LABS: Hematocrit 23.7 % (35.5-45.6); Hemoglobin 7.8 gm/dl (11.8-15.2); Mean Corpuscular HGB Conc 33 % (32-34); Mean Corpuscular Hemoglobin 31 pg (28-32); Mean Corpuscular Volume 94 fl (84-94); Platelet Count 103 K/mm3 (140-440); Red Blood Count 2.51 M/mm3 (3.65-5.03); White Blood Count 8.2 K/mm3 (4.5-11.0)
[2016-12-10 05:52] LABS: BUN/Creatinine Ratio 9.01; Calcium 8.1 mg/dL (8.4-10.2); Chloride 96.1 mmol/L (98-107); Potassium 4.6 mmol/L (3.6-5.0)
[2016-12-10 05:54] LABS: Red Cell Distribution Width 21.7 % (13.2-15.2)
--- NOTE | 2016-12-10 08:08 | Event Note ---
Date: 12/09/16 Informed to follow this patient.
[2016-12-10] MEDS: PROTONIX PO SCH ×2 (09:54→11:32)
[2016-12-10] MEDS: DEEP SEA NS SCH ×3 (09:54→21:47)
--- NOTE | 2016-12-10 10:29 | Discharge Summary ---
Providers - Providers Date of Admission: 12/07/16 16:05 Date of discharge: 12/10/16 Attending physician: RADHA DICK 12/07/16 20:42 Consult to Physician [CONS] Routine Consulting Provider: CRUZ ABRAHAM I Reason For Exam: ESRD Place consult to:: nephrology Notified:: answering services Phone number called:: [phone] Was contact made?: Yes If yes, spoke with:: Amita Time called:: 10:12 Comment:: PAT NOTIFIED 12/08/16 11:17 Consult to Physician [CONS] Routine Consulting Provider: EDITH CRAIG Reason For Exam: Acute blood loss anemia Place consult to:: DR. CRAIG Notified:: DR. CRAIG Phone number called:: IN HOUSE Was contact made?: Yes If yes, spoke with:: DR. CRAIG Time called:: 11:32 Comment:: PAT NOTIFIED 12/09/16 09:39 Consult to Physician [CONS] Urgent Consulting Provider: MALCOM BAUMAN Reason For Exam: dialysis Place consult to:: Dr danielle Notified:: yes Phone number called:: [phone] Was contact made?: Yes If yes, spoke with:: giles Time called:: 09:45 Comment:: message left 12/09/16 10:37 Occupational Therapy Evaluate and Treat [CONS] Routine Comment: Reason For Exam: help with ADLs, placement Physical Therapy Evaluation and Treat [CONS] Routine Comment: Reason For Exam: lack of mobility, placement Primary care physician: TANK CLEANER Hospitalization Reason for admission: weakness Condition: Stable Hospital course: Patient is a 61 y/o male who was sent to ER from [facility] due to low blood count. He stated he has been feeling tired and weak x 2 weeks with SOB prior to admission. On admission, HGB was 6.4. The patient denied active signs of bleeding such as hematemesis, melena, or hematochezia. Also, patient denies CP , dizziness, abd pain, N/V, fever, jaundice, pruritus, diarrhea, or constipation. No NSAID use. No Fhx of colon CA. Reports having and EGD/ colonoscopy in the past but cannot recall provider or how long ago. Pt is a poor historian. Admits to possible liver disease, unsure if he has hepatitis C. Reports ETOH abuse in the past but denies alcohol use for several months. PMH significant for ESRD on HD, HTN, COPD, AIDS, and nicotine dependence. Patient underwent CT scan which revealed a nodular contour to the liver which may be secondary to cirrhosis with portal hypertension. Patient required PRBCs during hospital stay. GI also saw the patient in consultation and plan for EGD which revealed 1. LA Grade A esophagitis (likely reflux) 2. 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 Medium hiatal hernia 4. Irregular, nodular mucosa throughout the duodenum; friable and likely the source of bleeding (given AIDS, suspect infectious) - Cold bx taken GI recommends 1. Advance diet and continue current meds (including protonix). 2. F/U pathology. 3. OK to d/c when hct stable. 4. Patient should avoid all NSAIDs/blood thinners. 5. Epogen and IV iron as needed at dialysis.) Patient otherwise stable. Dedicated discharge time 31 minutes. Disposition: DC-30 STILL A PATIENT Core Measure Documentation - Palliative Care Palliative Care/ Comfort Measures: Not Applicable - Core Measures Any of the following diagnoses?: none Exam - Constitutional Vitals: Temp Pulse Resp BP Pulse Ox 97.7 F 80 20 149/92 96 12/10/16 08:00 12/10/16 08:00 12/10/16 08:00 12/10/16 08:00 12/10/16 04:00 General appearance: Present: no acute distress, well-nourished - EENT Eyes: Present: PERRL ENT: hearing intact, clear oral mucosa - Neck Neck: Present: supple, normal ROM - Respiratory Respiratory effort: normal Respiratory: bilateral: CTA - Cardiovascular Heart Sounds: Present: S1 & S2. Absent: rub, click - Extremities Extremities: pulses symmetrical, No edema Peripheral Pulses: within normal limits - Abdominal General gastrointestinal: Present: soft, non-tender, non-distended, normal bowel sounds Male genitourinary: Present: normal - Integumentary Integumentary: Present: clear, warm, dry - Musculoskeletal Musculoskeletal: gait normal, strength equal bilaterally - Psychiatric Psychiatric: appropriate mood/affect, intact judgment & insight - Neurologic Neurologic: CNII-XII intact, moves all extremities Plan Activity: no restrictions Weight Bearing Status: Full Weight Bearing Diet: renal Follow up with: PRIMARY CARE, [Primary Care Provider] - 3-5 Days
--- NOTE | 2016-12-10 12:26 | Anesthesia Consultation ---
Anesthesia Consult and Med Hx Date of service: 12/10/16 - Airway Anesthetic Teeth Evaluation: Edentulous ROM Head & Neck: Adequate Mental/Hyoid Distance: Adequate Mallampati Class: Class II Intubation Access Assessment: Probably Good - Pulmonary Exam CTA: Yes - Cardiac Exam Cardiac Exam: RRR - Pre-Operative Health Status ASA Pre-Surgery Classification: ASA4 Proposed Anesthetic Plan: MAC - Pulmonary Hx Smoking: Yes COPD: Yes Hx Pneumonia: No - Cardiovascular System Hx Hypertension: Yes - Endocrine Hx Renal Disease: Yes Hx End Stage Renal Disease: Yes (dialyzed TTF) Hx Non-Insulin Dependent Diabetes: Yes - Hematic Hx Anemia: Yes (Hgb 7.8 after transfusion) - Other Systems Hx Alcohol Use: Yes - Additional Comments Anesthesia Medical History Comments: AIDS
--- NOTE | 2016-12-10 12:26 | Anesthesia Day of Surgery ---
Anesthesia Day of Surgery - Day of Surgery Patient Examined: Yes Patient H&P Reviewed: Yes Patient is NPO: Yes
[2016-12-10] MEDS ORDERED: NACL 0.9% 1000 ML 1,000 ML IV SCH (13:00)
[2016-12-10] MEDS ORDERED: WATER FOR IRRIG STERILE IR ONE (13:18)
[2016-12-10] MEDS ORDERED: AMIDATE IV ONE (13:18)
--- NOTE | 2016-12-10 13:45 | Post Operative Note ---
Pre-op diagnosis: Anemia Post-op diagnosis: other (Gastric AVM, abnormal duodenal mucosa, hiatal hernia, mild esophagitis) Findings: 1. LA Grade A esophagitis (likely reflux) 2. 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 Medium hiatal hernia 4. Irregular, nodular mucosa throughout the duodenum; friable and likely the source of bleeding (given AIDS, suspect infectious) - Cold bx taken Procedure: EGD with cold bx and APC of gastric AVM Anesthesia: MAC Surgeon: EDITH CRAIG Estimated blood loss: minimal Pathology: list (1. Duodenal mucosa) Specimen disposition: to lab Condition: stable Disposition: floor (Recs: 1. Advance diet and continue current meds (including protonix). 2. F/U pathology. 3. OK to d/c when hct stable. 4. Patient should avoid all NSAIDs/blood thinners. 5. Epogen and IV iron as needed at dialysis.)
--- NOTE | 2016-12-10 14:25 | Post Anesthesia Evaluation ---
- Post Anesthesia Evaluation Patient Participated: Yes Airway Patent: Yes Stable Respiratory Function: Yes Temp > 96.8F: Yes Pain Manageable: Yes Adequeate Hydration: Yes Anesthesia Complications: No Block Receding Appropriately: Not Applicable
[2016-12-10] MEDS ORDERED: PROCRIT IV ONE (17:00)
--- NOTE | 2016-12-10 18:16 | Operative Report ---
PROCEDURE PERFORMED: Esophagogastroduodenoscopy with cold biopsy as well as argon plasma cautery of an arteriovenous malformation. PREOPERATIVE DIAGNOSES: Anemia with AIDS and end-stage renal disease. POSTOPERATIVE DIAGNOSES: Hiatal hernia, esophagitis, arteriovenous malformation, abnormal duodenal mucosa. ENDOSCOPIST: Virgilio Lane MD INSTRUMENT: [employer] video endoscope. MEDICATIONS: MAC anesthesia by [facility]. COMPLICATIONS: No apparent complications. ESTIMATED BLOOD LOSS: Minimal. SPECIMENS: Random duodenum biopsies. IMPLANTS: None. HEAD BUTLER: None. CONDITION AT COMPLETION: Stable. TECHNIQUE: The patient was informed of the risks and benefits of the procedure. He signed the informed consent to proceed. He was placed in left lateral decubitus position. The above sedative medications were given. His vital signs remained stable throughout the procedure. The instrument was advanced from the mouth to the second portion of the duodenum under direct visualization. At that point, the bowel was insufflated and the endoscope was slowly withdrawn. FINDINGS: 1. LA grade A esophagitis, likely due to chronic acid reflux. 2. 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 3. Medium size hiatal hernia. 4. Irregular nodular mucosa from the duodenal bulb extending into the third portion; was friable and likely the source of bleeding; given the patient's underlined immune compromise, I would suspect an infectious etiology, but small bowel lymphoma could also be possible. 5. Multiple cold biopsies were taken. RECOMMENDATIONS: 1. Advance diet and continue current medications including Protonix. 2. Follow up on pathology. 3. Okay to discharge when the hematocrit is stable. 4. The patient should avoid all aspirin products and blood thinners. 5. Epogen and IV iron as needed at dialysis. JOB# [id number] ROSA/NTS
[2016-12-10] MEDS ORDERED: NACL 0.9 (PRIMING MACHINE ONLY DIALYSIS) MC ONE (18:51)
--- NOTE | 2016-12-10 22:47 | Progress Note ---
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 does not always dialysis clinic is going to when he was sent from [facility] for evaluation of severe symptomatic anemia in the setting of recent fall Recently he was accepted and [facility] from [place] Patient has very poor hygiene , he was yesterday seen by other metal trades instructor Physical examination General: No acute distress not well-kept HEENT; oral mucosa moist mild pallor Neck: Supple no JVD Chest: Clear to auscultation no crackles rales wheezes Heart: Regular rate, S1 and S2 heard no S3-S4 Abdomen: Soft nontender bowel sounds present Extremities examination reveals the patient does have loss of muscle mass dry skin 1+ edema Neurological alert awake follows simple command Assessment and plan End-stage renal disease patient is currently on maintenance hemodialysis; normal dialysis days are Friday and hence patient will receive hemodialysis treatment today Severe symptomatic anemia; status post packed red blood cell transfusion patient is currently status post GI evaluation he will also need to be seen by hematology to complete the workup Be hard for him to keep his appointments in outpatient setting Memory issues patient is very forgetful and does not remember who is his metal trades instructor also does not remember which dialysis clinic does he go to when he has been assigned recently to [facility], he was recently accepted from [facility] Secondary hyperparathyroidism we'll check phosphorus and PTH level Compliance appears to be doubtful at this time Dialysis nurse Moses reported a recent fall needs further evaluation physical therapy evaluation possible rehabilitation HIV disease? Underlying dementia, could be worsened by uremia, we'll need to see infectious disease Overall prognosis appears to be guarded I would not anticipate any immediate discharge We'll continue to follow and make recommendation from renal standpoint , Objective - Vital Signs Vital signs: Vital Signs - 12hr 12/10/16 12/10/16 12/10/16 12:04 12:08 13:40 Temperature 97.5 F L 97.5 F L 97.7 F Pulse Rate 78 78 78 Pulse Rate [ Left] Respiratory 26 H 26 H 20 Rate Blood Pressure 147/94 147/94 142/79 Blood Pressure [Left Arm] O2 Sat by Pulse 94 94 91 Oximetry 12/10/16 12/10/16 12/10/16 13:55 14:10 16:00 Temperature 98.1 F Pulse Rate 78 84 Pulse Rate [ 83 Left] Respiratory 23 22 20 Rate Blood Pressure 144/79 140/84 Blood Pressure 148/96 [Left Arm] O2 Sat by Pulse 92 95 92 Oximetry 12/10/16 12/10/16 12/10/16 17:25 17:35 17:45 Temperature 98.1 F Pulse Rate 80 85 79 Pulse Rate [ Left] Respiratory 18 Rate Blood Pressure 152/97 145/99 153/90 Blood Pressure [Left Arm] O2 Sat by Pulse Oximetry 12/10/16 12/10/16 12/10/16 18:00 18:15 18:30 Temperature Pulse Rate 77 87 81 Pulse Rate [ Left] Respiratory Rate Blood Pressure 141/94 142/60 154/93 Blood Pressure [Left Arm] O2 Sat by Pulse Oximetry 12/10/16 12/10/16 12/10/16 18:45 19:00 19:15 Temperature Pulse Rate 80 80 86 Pulse Rate [ Left] Respiratory Rate Blood Pressure 153/97 158/85 150/72 Blood Pressure [Left Arm] O2 Sat by Pulse Oximetry 12/10/16 12/10/16 12/10/16 19:30 19:45 20:00 Temperature Pulse Rate 83 84 80 Pulse Rate [ Left] Respiratory Rate Blood Pressure 146/59 146/90 141/97 Blood Pressure [Left Arm] O2 Sat by Pulse Oximetry 12/10/16 12/10/16 12/10/16 20:15 20:30 20:45 Temperature Pulse Rate 84 80 80 Pulse Rate [ Left] Respiratory Rate Blood Pressure 140/96 144/90 140/90 Blood Pressure [Left Arm] O2 Sat by Pulse Oximetry 12/10/16 21:05 Temperature 98.1 F Pulse Rate 80 Pulse Rate [ Left] Respiratory 18 Rate Blood Pressure 140/92 Blood Pressure [Left Arm] O2 Sat by Pulse Oximetry - Lab 12/10/16 04:03 12/10/16 04:03 Most recent lab results Calcium 8.1 mg/dL (8.4-10.2) L 12/10/16 04:03 Phosphorus 5.80 mg/dL (2.5-4.5) H 12/07/16 15:29
[2016-12-11 05:36] LABS: Hematocrit 22.8 % (35.5-45.6); Hemoglobin 7.7 gm/dl (11.8-15.2); Mean Corpuscular HGB Conc 34 % (32-34); Mean Corpuscular Hemoglobin 31 pg (28-32); Mean Corpuscular Volume 91 fl (84-94); Platelet Count 100 K/mm3 (140-440); White Blood Count 6.2 K/mm3 (4.5-11.0)
[2016-12-11 05:40] LABS: Red Cell Distribution Width 20.8 % (13.2-15.2)
[2016-12-11 05:51] LABS: BUN/Creatinine Ratio 8.85; Calcium 7.8 mg/dL (8.4-10.2); Chloride 98.1 mmol/L (98-107); Potassium 3.8 mmol/L (3.6-5.0)
[2016-12-11] MEDS: DEEP SEA NS SCH ×3 (08:23→22:00)
--- NOTE | 2016-12-11 09:29 | Progress Note ---
Objective - Vital Signs Vital signs: Vital Signs - 12hr 12/11/16 12/11/16 12/11/16 03:41 03:52 08:00 Temperature 97.2 F L 97.4 F L Pulse Rate 80 Pulse Rate [ 88 90 Left] Respiratory 16 18 Rate Blood Pressure 95/58 98/59 [Left Arm] O2 Sat by Pulse 95 Oximetry - Lab 12/11/16 04:41 12/11/16 04:41 Most recent lab results Calcium 7.8 mg/dL (8.4-10.2) L 12/11/16 04:41 Phosphorus 5.80 mg/dL (2.5-4.5) H 12/07/16 15:29
--- NOTE | 2016-12-11 09:49 | Progress Note ---
Assessment and Plan Acute Blood loss anemia, symptomatic Hg is stable will transfuse another PRBC today CT abdomen 12/08/2016 CT pelvis without contrast: Nodular contour of the liver may be secondary to cirrhosis with portal hypertension. Clinical correlation is requested. Diminutive multicystic kidneys. Correlation with chronic renal failure is requested. Large volume of abdominal and pelvic ascites may be secondary to hepatic and/or renal finding as above. Combination of ascites and vascular coils compromises evaluation adrenal gland and much of the pancreas. Continued epogen as per nephrology, GI following End stage renal disease on dialysis Nephrology following, ccontinue HD Metabolic acidosis Due to ESRD supportive care, dialysis as per renal, continue home medication. 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 Objective - Constitutional Vitals: Vital Signs - 12hr 12/11/16 12/11/16 12/11/16 03:41 03:52 08:00 Temperature 97.2 F L 97.4 F L Pulse Rate 80 Pulse Rate [ 88 90 Left] Respiratory 16 18 Rate Blood Pressure 95/58 98/59 [Left Arm] O2 Sat by Pulse 95 Oximetry General appearance: Present: no acute distress, well-nourished - EENT Eyes: PERRL, EOM intact ENT: hearing intact, clear oral mucosa Ears: bilateral: normal - Neck Neck: supple, normal ROM - Respiratory Respiratory effort: normal Respiratory: bilateral: CTA - Breasts Breasts: normal - Cardiovascular Rhythm: regular Heart Sounds: Present: S1 & S2. Absent: gallop, rub Extremities: pulses intact, No edema, normal color, Full ROM - Gastrointestinal General gastrointestinal: Present: soft, non-tender, non-distended, normal bowel sounds - Genitourinary Male genitourinary: normal - Integumentary Integumentary: clear, warm, dry - Musculoskeletal Musculoskeletal: 1, strength equal bilaterally - Neurologic Neurologic: moves all extremities - Psychiatric Psychiatric: memory intact, appropriate mood/affect, intact judgment & insight - Labs CBC & Chem 7: 12/11/16 04:41 12/11/16 04:41 Labs: Abnormal lab results 12/11/16 12/11/16 Range/Units 04:41 04:41 RBC 2.50 L (3.65-5.03) M/mm3 Hgb 7.7 L (11.8-15.2) gm/dl Hct 22.8 L (35.5-45.6) % RDW 20.8 H (13.2-15.2) % Plt Count 100 L (140-440) K/mm3 Carbon Dioxide 21 L D (22-30) mmol/L BUN 54 H (9-20) mg/dL Creatinine 6.1 H (0.8-1.5) mg/dL Calcium 7.8 L (8.4-10.2) mg/dL
[2016-12-11] MEDS: PROTONIX PO SCH (09:59)
--- NOTE | 2016-12-11 10:01 | Progress Note ---
Assessment and Plan Assessment and plan: Acute Blood loss anemia, symptomatic Hg is stable, s/p PRBCs CT abdomen 12/08/2016 CT pelvis without contrast: Nodular contour of the liver may be secondary to cirrhosis with portal hypertension. Clinical correlation is requested. Diminutive multicystic kidneys. Large volume of abdominal and pelvic ascites may be secondary to hepatic and/or renal finding as above. Combination of ascites and vascular coils compromises evaluation adrenal gland and much of the pancreas. Continue epogen as per nephrology, GI following Encephalopathy. Improved. Patient appears less confused today than yesterday. Neurology consultation pending. AIDS dementia. End stage renal disease on dialysis Nephrology following, ccontinue HD Metabolic acidosis Due to ESRD supportive care, dialysis as per renal, continue home medication. Severe malnutrition encourage increased protein intake, Director Underwriter Sales consulted AIDS ID consultation pending. Resume retroviral meds Tobacco abuse counseling performed DVT prophylaxis scds in in light of anemia History Interval history: No new issues overnight. Hospitalist Physical - Constitutional Vitals: Temp Pulse Resp BP Pulse Ox 97.4 F L 90 18 98/59 95 12/11/16 08:00 12/11/16 08:00 12/11/16 08:00 12/11/16 08:00 12/11/16 08:00 General appearance: Present: no acute distress, well-nourished - EENT Eyes: Present: PERRL, EOM intact ENT: hearing intact, clear oral mucosa, dentition normal - Neck Neck: Present: supple, normal ROM - Respiratory Respiratory effort: normal Respiratory: bilateral: CTA - Cardiovascular Rhythm: regular Heart Sounds: Present: S1 & S2. Absent: gallop, rub - Extremities Extremities: no ischemia, No edema, Full ROM - Abdominal General gastrointestinal: soft, non-tender, non-distended, normal bowel sounds - Integumentary Integumentary: Present: clear, warm, dry - Neurologic Neurologic: CNII-XII intact, moves all extremities Results - Labs CBC & Chem 7: 12/11/16 04:41 12/11/16 04:41 Labs: Laboratory Last Values WBC 6.2 K/mm3 (4.5-11.0) 12/11/16 04:41 RBC 2.50 M/mm3 (3.65-5.03) L 12/11/16 04:41 Hgb 7.7 gm/dl (11.8-15.2) L 12/11/16 04:41 Hct 22.8 % (35.5-45.6) L 12/11/16 04:41 MCV 91 fl (84-94) 12/11/16 04:41 MCH 31 pg (28-32) 12/11/16 04:41 MCHC 34 % (32-34) 12/11/16 04:41 RDW 20.8 % (13.2-15.2) H 12/11/16 04:41 Plt Count 100 K/mm3 (140-440) L 12/11/16 04:41 Lymph % (Auto) 20.7 % (13.4-35.0) 12/09/16 05:28 [place] % (Auto) 8.0 % (0.0-7.3) H 12/09/16 05:28 Eos % (Auto) 1.5 % (0.0-4.3) 12/09/16 05:28 Baso % (Auto) 1.1 % (0.0-1.8) 12/09/16 05:28 Lymph # 1.3 K/mm3 (1.2-5.4) 12/09/16 05:28 [place] # 0.5 K/mm3 (0.0-0.8) 12/09/16 05:28 Eos # 0.1 K/mm3 (0.0-0.4) 12/09/16 05:28 Baso # 0.1 K/mm3 (0.0-0.1) 12/09/16 05:28 Seg Neutrophils % 68.7 % (40.0-70.0) 12/09/16 05:28 Seg Neutrophils # 4.2 K/mm3 (1.8-7.7) 12/09/16 05:28 PT 17.8 Sec. (12.2-14.9) H 12/07/16 15:29 INR 1.39 (0.87-1.13) H 12/07/16 15:29 APTT 40.3 Sec. (24.2-36.6) H 12/07/16 15:29 Sodium 138 mmol/L (137-145) 12/11/16 04:41 Potassium 3.8 mmol/L (3.6-5.0) 12/11/16 04:41 Chloride 98.1 mmol/L (98-107) 12/11/16 04:41 Carbon Dioxide 21 mmol/L (22-30) L D 12/11/16 04:41 Anion Gap 23 mmol/L 12/11/16 04:41 BUN 54 mg/dL (9-20) H 12/11/16 04:41 Creatinine 6.1 mg/dL (0.8-1.5) H 12/11/16 04:41 Estimated GFR 11 ml/min 12/11/16 04:41 BUN/Creatinine Ratio 8.85 % 12/11/16 04:41 Glucose 90 mg/dL (75-100) 12/11/16 04:41 Calcium 7.8 mg/dL (8.4-10.2) L 12/11/16 04:41 Phosphorus 5.80 mg/dL (2.5-4.5) H 12/07/16 15:29 Total Bilirubin 0.50 mg/dL (0.1-1.2) 12/07/16 13:58 AST 51 units/L (5-40) H 12/07/16 13:58 ALT 43 units/L (7-56) 12/07/16 13:58 Alkaline Phosphatase 142 units/L (35-129) H 12/07/16 13:58 Total Protein 8.1 g/dL (6.3-8.2) 12/07/16 13:58 Albumin 3.0 g/dL (3.9-5) L 12/07/16 13:58 Albumin/Globulin Ratio 0.6 % 12/07/16 13:58 Hep Bs Antigen Reactive (Negative) 12/10/16 04:55 Hepatitis C Antibody Reactive (NonReactive) A 12/10/16 04:55 Blood Type A POSITIVE 12/07/16 15:29 Antibody Screen TNR 12/07/16 15:29 VLADIMIR Antibody Screen Negative 12/07/16 15:29 Crossmatch See Detail 12/07/16 15:29
--- NOTE | 2016-12-11 10:04 | Progress Note ---
Subjective Interval history: Patient was seen today for follow-up, he is doing much better today able to remember me from yesterday Has had a GI evaluation, patient is currently homeless, appetite is good Physical examination General: No acute distress not well-kept HEENT; oral mucosa moist mild pallor Neck: Supple no JVD Chest: Clear to auscultation no crackles rales wheezes Heart: Regular rate, S1 and S2 heard no S3-S4 Abdomen: Soft nontender bowel sounds present, no flank somewhat distended abdomen Extremities examination reveals the patient does have loss of muscle mass dry skin 1+ edema Neurological alert awake follows simple command Assessment and plan End-stage renal disease: Patient will continue to dialyze on Friday schedule Anemia and end-stage renal disease: It is partly nutritional some possibly due to blood loss appears to be mostly multifactorial to follow discussed with GI no dysphagia very says Clinically appears to have ascites: This could be multifactorial, needs to be monitored Patient needs hematology evaluation given that he has low platelets and anemia both he may need a bone marrow study Discussed with gastroenterology service currently not suitable for colonoscopy History of multiple falls in a patient who is homeless has multiple comorbidities he will need placement he is appears to be deconditioned and weak Forgetfulness appears to be better partly also due to severe anemia aging brain , metabolic to follow History of multiple falls needs physical therapy rehabilitation and placement Current fistula has been working well patient was evaluated approximately 4 months ago and at that time he was told of the fistula is working well He has been on hemodialysis since last 2 years but does not recall the name of his previous kiln hand Overall not suitable for discharge needs disposition to snf, better nutrition follow-up Continue to monitor labs Counseling and education was done regarding renal related issues Objective - Vital Signs Vital signs: Vital Signs - 12hr 12/11/16 12/11/16 12/11/16 03:41 03:52 08:00 Temperature 97.2 F L 97.4 F L Pulse Rate 80 Pulse Rate [ 88 90 Left] Respiratory 16 18 Rate Blood Pressure 95/58 98/59 [Left Arm] O2 Sat by Pulse 95 Oximetry - Lab 12/11/16 04:41 12/11/16 04:41 Most recent lab results Calcium 7.8 mg/dL (8.4-10.2) L 12/11/16 04:41 Phosphorus 5.80 mg/dL (2.5-4.5) H 12/07/16 15:29
--- NOTE | 2016-12-11 10:21 | Gastroenterology Progress Note ---
Assessment and Plan - Patient Problems (1) Anemia in chronic illness Current Visit: Yes Status: Acute Plan to address problem: - No gross bleeding, and multiple possible causes (AIDS, ESRD, malnutrition/ homeless, abnormal duodenum with atrophy - possible small bowel malabsorption). - EGD results of 12/10 noted; will defer colonoscopy at present until clinical condition improved since no active bleeding. (2) Hepatitis C Current Visit: Yes Status: Acute Qualifiers: Viral hepatitis chronicity: V Hepatic coma status: H Plan to address problem: - Genotype and VL to be drawn in the AM. - As per Hep B, will defer tx to ID service given underlying HIV. (3) Hepatitis B Current Visit: Yes Status: Acute Qualifiers: Viral hepatitis chronicity: V Hepatic coma status: H Hepatitis delta agent presence: H Plan to address problem: - HBsAg (+) and cirrhosis. - Will need tx of this prior to HCV treatment to prevent decompensation. (4) Duodenitis Current Visit: Yes Status: Acute Plan to address problem: - Noted at EGD 12/10. Will f/u pathology. If Tcells < 200, will need to consider infectious etiology. (5) End stage renal disease on dialysis Current Visit: Yes Status: Chronic (6) Cirrhosis Current Visit: Yes Status: Acute Qualifiers: Hepatic cirrhosis type: H Ascites presence: A Plan to address problem: - Combination HCV/HBV and hx of EtOH. 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 - Supportive care only at present; needs to avoid all EtOH, and get HCV/HBV treated with the concurrent HIV. Subjective Date of service: 12/11/16 Principal diagnosis: Cirrhosis, Anemia Interval history: The patient ate all of his breakfast. He has no N/V/abdominal pain. He has seen no blood in his stools. He denies CP or SOB. Objective - Constitutional Vitals: Temp Pulse Resp BP Pulse Ox 97.4 F L 90 18 98/59 95 12/11/16 08:00 12/11/16 08:00 12/11/16 08:00 12/11/16 08:00 12/11/16 08:00 General appearance: no acute distress - EENT Eyes: PERRL, EOM intact ENT: poor dentition, no thrush - Respiratory Respiratory effort: normal Respiratory: bilateral: CTA - Cardiovascular Rhythm: regular Heart Sounds: Present: S1 & S2 - Gastrointestinal General gastrointestinal: Present: soft, non-tender, distended (Mild ascites) - Labs CBC & Chem 7: 12/11/16 04:41 12/11/16 04:41 Labs: Laboratory Results - last 24 hr 12/11/16 12/11/16 04:41 04:41 WBC 6.2 RBC 2.50 L Hgb 7.7 L Hct 22.8 L MCV 91 MCH 31 MCHC 34 RDW 20.8 H Plt Count 100 L Sodium 138 Potassium 3.8 Chloride 98.1 Carbon Dioxide 21 L D Anion Gap 23 BUN 54 H Creatinine 6.1 H Estimated GFR 11 BUN/Creatinine Ratio 8.85 Glucose 90 Calcium 7.8 L
--- NOTE | 2016-12-11 11:26 | Consultation ---
History of Present Illness Consult date: 12/11/16 Requesting physician: RADHA DICK Reason for Consult: AMS/AIDS Chief complaint: congestion-nasal/SOB History of present illness: 61 YO M Hx HIV and AIDS a/w 2 weeks of generalized weakness on 12/07. Apparently pt was noted to have confusion on 12/10 but unclear further details. Sx are constant but waxing and waning. There are no clear aggravating, relieving or temporal factors. Severity is such to cause concern for AIDS dementia. Past History Past Medical History: COPD, ESRD, HIV/AIDS, hypertension, other (Nicotine Dependence) Past Surgical History: Other (AV fistula) Social history: single, smoking. denies: alcohol abuse, prescription drug abuse , IV drug use Family history: diabetes, hypertension Medications and Allergies Allergies Allergy/AdvReac Type Severity Reaction Status Date / Time No Known Allergies Allergy Unverified 12/07/16 13:48 Home Medications Medication Instructions Recorded Confirmed Last Taken Type ALBUTEROL Inhaler [ProAir HFA 8.5 gram IH Q4-6H PRN MDD 4 12/07/16 12/07/16 Unknown History Inhaler] Albuterol Sulfate [Ventolin HFA] 8 gram IH PRN PRN 12/07/16 12/07/16 Unknown History AtorvaSTATin [Lipitor] 20 mg PO QHS 12/07/16 12/07/16 Unknown History Dapsone 100 mg PO DAILY 12/07/16 12/07/16 Unknown History Darunavir [Prezista] 800 mg PO DAILY 12/07/16 12/07/16 Unknown History Darunavir [Prezista] 800 mg PO DAILY 12/07/16 12/07/16 Unknown History Pnv with Ca#74/Iron/Folic Acid 1 tab PO DAILY 12/07/16 12/07/16 Unknown History [Vol-Plus Tablet] Ritonavir [Norvir] 100 mg PO DAILY 12/07/16 12/07/16 Unknown History Sevelamer Carbonate [Renvela] 800 mg PO TID 12/07/16 12/07/16 Unknown History Tenofovir [Viread] 300 mg PO DAILY 12/07/16 12/07/16 Unknown History Tiotropium [Spiriva] 1 puff IH DAILY 12/07/16 12/07/16 Unknown History amLODIPine [Norvasc] 10 mg PO DAILY 12/07/16 12/07/16 Unknown History lamiVUDine [Epivir Hbv] 75 mg PO DAILY 12/07/16 12/07/16 Unknown History Pantoprazole [Protonix TAB] 40 mg PO QDAY tablet 12/10/16 Unknown Rx Active Meds: Active Medications Acetaminophen (Tylenol) 650 mg PO Q4H PRN PRN Reason: Pain MILD(1-3)/Fever >100.5/YATES Last Admin: 12/09/16 20:53 Dose: 650 mg Albuterol (Proventil) 2.5 mg IH Q4HRT PRN PRN Reason: Wheezing Sodium Chloride (Nacl 0.9% 1000 Ml) 1,000 mls @ 50 mls/hr IV DIRECT [facility] Last Admin: 12/10/16 12:24 Dose: 50 mls/hr Pantoprazole Sodium (Protonix) 40 mg PO QDAY [facility] Last Admin: 12/11/16 09:59 Dose: 40 mg Sodium Chloride (Deep Sea) 1 spray NS TID [facility] Last Admin: 12/11/16 08:23 Dose: 1 spray Review of Systems All systems: negative Constitutional: weakness Ears, nose, mouth and throat: nasal congestion Respiratory: shortness of breath Neurological: weakness (generalized), no parathesias, no numbness, no tingling, no syncope, no headaches, no aphasia, no change in speech, no confusion, no memory loss, no gait dysfunction, no motor disturbance, no double vision Physical Examination - Vital Signs Vital Signs: Vital Signs Temp Pulse Resp BP Pulse Ox 98.7 F 102 H 22 139/82 96 12/07/16 13:39 12/07/16 13:39 12/07/16 13:39 12/07/16 13:39 12/07/16 13:39 - Constitutional General appearance: comfortable - EENT EENT: Present: ATNC, PERRL, mucous membranes moist, hearing intact, vision intact - Respiratory Respiratory: Present: chest non-tender, normal breath sounds, no respiratory distress - Cardiovascular Cardiovascular: Present: regular rate Extremities: Present: no peripheral edema bilatateraly, no clubbing, cyanosis, no inflammation, no ischemia or petechiae - Gastrointestinal Gastrointestinal: Present: normoactive bowel sounds, soft, non-distended - Integumentary Integumentary: Present: normal - Neurologic Cranial nerve examination: PERRL, EOMI, VFF, V1/V2/V3 grossly intact, face symmetric, tongue midline, intact, Intact Vestibulo-ocular r, intact corneal reflex, normal palatal elevation Speech examination: intact Sensorimotor examination: intact Detailed motor examination: grossly full strength in Motor examination - right side: 5/5: biceps, triceps, wrist flexion, wrist extension, prep room supervisor, hip flexors, knee extensors, dorsiflexion, toe extension (EHL) , plantarflexion Motor examination - left side: 55: biceps, triceps, wrist flexion, wrist extension, prep room supervisor, hip flexors, knee extensors, dorsiflexion, toe extension (EHL) , plantarflexion Detailed sensory examination: intact, light touch, temperature Reflex and gait examination: intact Reflexes: 2+: ankle, bicep, knee, tricep - Musculoskeletal Musculoskeletal: Present: no fluid collection, no pain, normal range of motion - Psychiatric Psychiatric: Present: mood/affect appropriate, cooperative Results - Laboratory Findings CBC and BMP: 12/11/16 04:41 12/11/16 04:41 Abnormal Lab Findings: Abnormal Labs 12/08/16 12/09/16 12/09/16 10:23 05:28 05:28 RBC 2.17 L Hgb 6.2 L 6.7 L Hct 18.9 L* 20.2 L RDW 20.7 H Plt Count 115 L [place] % (Auto) 8.0 H Sodium Chloride Carbon Dioxide 17 L BUN 74 H Creatinine 7.9 H Calcium 8.2 L Hepatitis C Antibody 12/09/16 12/10/16 12/10/16 10:59 04:03 04:03 RBC 2.51 L Hgb 7.4 L 7.8 L Hct 22.6 L 23.7 L RDW 21.7 H Plt Count 103 L [place] % (Auto) Sodium 132 L Chloride 96.1 L Carbon Dioxide 13 L BUN 82 H Creatinine 9.1 H Calcium 8.1 L Hepatitis C Antibody 12/10/16 12/11/16 12/11/16 04:55 04:41 04:41 RBC 2.50 L Hgb 7.7 L Hct 22.8 L RDW 20.8 H Plt Count 100 L [place] % (Auto) Sodium Chloride Carbon Dioxide 21 L D BUN 54 H Creatinine 6.1 H Calcium 7.8 L Hepatitis C Antibody Reactive A Assessment and Plan 61 YO M Hx HIV and AIDS a/w 2 weeks of generalized weakness on 12/07. Apparently pt was noted to have confusion on 12/10 but unclear further details. On my exam pt awake alert fully oriented following commands w/o focal deficit. Cosnidering pt improved markedly between 12/10 and 12/11 per report syndrome likely consistent with toxic metabolic infectious derangement as the etiology for neurologic decompensation. There is no clear new focality on neurologic examination to suggest acute PRICE CHANGER process e.g. Stroke, Seizure or Meningitis. Recommendations: 1. MRI Brain +/- Tomasz to r/o acute PRICE CHANGER lesion. 2. Check serum TSH/Ammonia and correct as necessary 3. Cont Infectious work up/medical management for UTI, PNA, cellulitis, bacteremia, etc. 4. Avoid hyponatremia,/hypercalcemia, hypo/hyperglycemia, acidosis, hypoxia/ hypoxemia, hypercarbia/hypercapnia 5. Avoid institution of any new psychoactive medications (e.g. antihistamines, anticholinergics, BZD, hypnotics, opiates) as able unless low doses of low potency antipsychotic needed for behavioral issues complicating medical care 6. Specific neurologic assessment of likelihood of prognosis back to baseline @ this point is limited as there is no active primary neurologic issue ongoing, and therefore prognosis will be completely secondary to any potential progress patient is able to make from multiple ongoing medical issues 7. Gradually reduce MAPs by 10-15% daily to reach normotension 8. Thiamine/Folate/CIWA protocol accordingly for any hx obtained to suggest EtOH withdrawal 9. Cont home meds-there is no neurologic indication to change
--- NOTE | 2016-12-11 18:08 | Event Note ---
Date: 12/11/16 ID consultation requested for management of AIDS. Full consult note to follow. Patient is on HAART and Dapsone for PjP prophylaxis, presumptive low CD4. He is here with AMS. A brain MRI is pending. Will request a CD4 count, serum cryptococcal antigen and CMV serology given findings on endoscopy today. Plan to resume home regimen of ARVs.
[2016-12-12 05:55] LABS: Hematocrit 20.9 % (35.5-45.6); Hemoglobin 6.9 gm/dl (11.8-15.2); Mean Corpuscular HGB Conc 33 % (32-34); Mean Corpuscular Hemoglobin 31 pg (28-32); Mean Corpuscular Volume 93 fl (84-94); Red Blood Count 2.24 M/mm3 (3.65-5.03); White Blood Count 6.6 K/mm3 (4.5-11.0)
[2016-12-12 05:59] LABS: Platelet Count 90 K/mm3 (140-440); Red Cell Distribution Width 21.3 % (13.2-15.2)
[2016-12-12 06:06] LABS: BUN/Creatinine Ratio 10.75; Calcium 8.3 mg/dL (8.4-10.2); Chloride 98.5 mmol/L (98-107); Potassium 4.1 mmol/L (3.6-5.0)
[2016-12-12] MEDS: DEEP SEA NS SCH ×3 (08:20→21:03)
[2016-12-12] MEDS: PROTONIX PO SCH (09:21)
--- NOTE | 2016-12-12 09:30 | Progress Note ---
Subjective Principal diagnosis: Cirrhosis, Anemia Interval history: Patient was seen today for follow-up on multiple renal related issues Has had a GI evaluation, patient is currently homeless, appetite is good patient is currently homeless Is currently being seen by multiple specialities Hemoglobin has currently declined again Encephalopathy velásquez is much better oriented Physical examination General: No acute distress not well-kept. Cachectic male who has lost significant amount of muscle mass HEENT; oral mucosa moist mild pallor Neck: Supple no JVD Chest: Clear to auscultation no crackles rales wheezes Heart: Regular rate, S1 and S2 heard no S3-S4 Abdomen: Soft nontender bowel sounds present, dull flank with some fluid thrill somewhat distended abdomen Extremities examination reveals the patient does have loss of muscle mass dry skin 1+ edema Neurological alert awake follows simple command Assessment and plan End-stage renal disease: Patient will continue to dialyze on Friday schedule Anemia and end-stage renal disease: Status post GI evaluation patient also needs hematology evaluation and possibly a bone marrow study , anemia appears to be multifactorial Patient clinically does appear to have ascites which could be multifactorial again , discussed with Dr. Virgilio Lane yesterday to follow and this time at some point he will need colonoscopy but he is currently considered to be high risk Encephalopathy weakness generalized deconditioning falllspatient needs placement Current dialysis axis is a fistula which has been working well last evaluated 4 months ago Continue with supportive care Overall prognosis is very poor due to multiorgan problems Continue to monitor labs Counseling and education was done regarding renal related issues Objective - Vital Signs Vital signs: Vital Signs - 12hr 12/12/16 12/12/16 12/12/16 00:00 08:00 09:19 Temperature 98.3 F 98 F Pulse Rate [ 92 H 22 L Apical] Pulse Rate [ 92 H Left] Pulse Rate [ 84 Right Radial] Respiratory 24 22 18 Rate Blood Pressure 132/82 160/90 [Left Arm] O2 Sat by Pulse 96 97 Oximetry - Lab 12/12/16 04:39 12/12/16 04:39 Most recent lab results Calcium 8.3 mg/dL (8.4-10.2) L 12/12/16 04:39 Phosphorus 5.80 mg/dL (2.5-4.5) H 12/07/16 15:29
--- NOTE | 2016-12-12 10:52 | Progress Note ---
Assessment and Plan Assessment and plan: Anemia of chronic disease Hg is 6.9. We'll transfuse 2 units of packed red blood cells. EGD revealed grade A esophagitis and solitary medium-sized AVM and gastric fundus. Also, irregular nodular mucosa throughout the duodenum that was friable and likely source of bleeding. CT abdomen 12/08/2016 CT pelvis without contrast: Nodular contour of the liver may be secondary to cirrhosis with portal hypertension. Clinical correlation is requested. Diminutive multicystic kidneys. Large volume of abdominal and pelvic ascites may be secondary to hepatic and/or renal finding as above. Combination of ascites and vascular coils compromises evaluation adrenal gland and much of the pancreas. Continue epogen as per nephrology, GI following Encephalopathy. Improved. Follow-up MRI. Neurology following. End stage renal disease on dialysis Nephrology following, continue HD Metabolic acidosis Due to ESRD supportive care, dialysis as per renal, continue home medication. Severe malnutrition encourage increased protein intake, [employer] consulted AIDS ID following. Resume retroviral meds Tobacco abuse counseling performed DVT prophylaxis scds in in light of anemia History Interval history: No new issues overnight. Hospitalist Physical - Constitutional Vitals: Temp Pulse Resp BP Pulse Ox 98 F 84 18 160/90 97 12/12/16 08:00 12/12/16 09:19 12/12/16 09:19 12/12/16 08:00 12/12/16 08:00 General appearance: Present: no acute distress, well-nourished - EENT Eyes: Present: PERRL, EOM intact ENT: hearing intact, clear oral mucosa, dentition normal - Neck Neck: Present: supple, normal ROM - Respiratory Respiratory effort: normal Respiratory: bilateral: CTA - Cardiovascular Rhythm: regular Heart Sounds: Present: S1 & S2. Absent: gallop, rub - Extremities Extremities: no ischemia, No edema, Full ROM - Abdominal General gastrointestinal: soft, non-tender, non-distended, normal bowel sounds - Integumentary Integumentary: Present: clear, warm, dry - Neurologic Neurologic: CNII-XII intact, moves all extremities Results - Labs CBC & Chem 7: 12/12/16 04:39 12/12/16 04:39 Labs: Laboratory Last Values WBC 6.6 K/mm3 (4.5-11.0) 12/12/16 04:39 RBC 2.24 M/mm3 (3.65-5.03) L 12/12/16 04:39 Hgb 6.9 gm/dl (11.8-15.2) L 12/12/16 04:39 Hct 20.9 % (35.5-45.6) L 12/12/16 04:39 MCV 93 fl (84-94) 12/12/16 04:39 MCH 31 pg (28-32) 12/12/16 04:39 MCHC 33 % (32-34) 12/12/16 04:39 RDW 21.3 % (13.2-15.2) H 12/12/16 04:39 Plt Count 90 K/mm3 (140-440) L 12/12/16 04:39 Lymph % (Auto) 20.7 % (13.4-35.0) 12/09/16 05:28 [place] % (Auto) 8.0 % (0.0-7.3) H 12/09/16 05:28 Eos % (Auto) 1.5 % (0.0-4.3) 12/09/16 05:28 Baso % (Auto) 1.1 % (0.0-1.8) 12/09/16 05:28 Lymph # 1.3 K/mm3 (1.2-5.4) 12/09/16 05:28 [place] # 0.5 K/mm3 (0.0-0.8) 12/09/16 05:28 Eos # 0.1 K/mm3 (0.0-0.4) 12/09/16 05:28 Baso # 0.1 K/mm3 (0.0-0.1) 12/09/16 05:28 Seg Neutrophils % 68.7 % (40.0-70.0) 12/09/16 05:28 Seg Neutrophils # 4.2 K/mm3 (1.8-7.7) 12/09/16 05:28 PT 17.8 Sec. (12.2-14.9) H 12/07/16 15:29 INR 1.39 (0.87-1.13) H 12/07/16 15:29 APTT 40.3 Sec. (24.2-36.6) H 12/07/16 15:29 Sodium 137 mmol/L (137-145) 12/12/16 04:39 Potassium 4.1 mmol/L (3.6-5.0) 12/12/16 04:39 Chloride 98.5 mmol/L (98-107) 12/12/16 04:39 Carbon Dioxide 19 mmol/L (22-30) L 12/12/16 04:39 Anion Gap 24 mmol/L 12/12/16 04:39 BUN 71 mg/dL (9-20) H 12/12/16 04:39 Creatinine 6.6 mg/dL (0.8-1.5) H 12/12/16 04:39 Estimated GFR 10 ml/min 12/12/16 04:39 BUN/Creatinine Ratio 10.75 % 12/12/16 04:39 Glucose 86 mg/dL (75-100) 12/12/16 04:39 Calcium 8.3 mg/dL (8.4-10.2) L 12/12/16 04:39 Phosphorus 5.80 mg/dL (2.5-4.5) H 12/07/16 15:29 Total Bilirubin 0.50 mg/dL (0.1-1.2) 12/07/16 13:58 AST 51 units/L (5-40) H 12/07/16 13:58 ALT 43 units/L (7-56) 12/07/16 13:58 Alkaline Phosphatase 142 units/L (35-129) H 12/07/16 13:58 Ammonia 26.0 umol/L (25-60) 12/11/16 14:09 Total Protein 8.1 g/dL (6.3-8.2) 12/07/16 13:58 Albumin 3.0 g/dL (3.9-5) L 12/07/16 13:58 Albumin/Globulin Ratio 0.6 % 12/07/16 13:58 TSH 2.230 mlU/mL (0.270-4.200) 12/11/16 14:09 Hep Bs Antigen Reactive (Negative) 12/10/16 04:55 Hep B Core Total Ab Nonreactive (Nonreactive) 12/10/16 04:55 Hepatitis C Antibody Reactive (NonReactive) A 12/10/16 04:55 Blood Type A POSITIVE 12/07/16 15:29 Antibody Screen TNR 12/07/16 15:29 VLADIMIR Antibody Screen Negative 12/07/16 15:29 Crossmatch See Detail 12/07/16 15:29
[2016-12-12] MEDS ORDERED: NACL 0.9% 500 ML 500 ML IV ONE (11:00)
--- NOTE | 2016-12-12 11:10 | Gastroenterology Progress Note ---
Assessment and Plan 1.anemia 2.cirrhosis 2.ESRD 3.AIDS 4.Hep B 5.Hep C -HGB 6.9 today-trending down -continue to monitor H&H and transfuse as needed -hold blood thinning medications -pt reports 1 BM overnight with black stool -continue PPI -S/P EGD on 12/10-revealed esophagitis, gastric AVM (treated with APC), and duodenitis (bx obtained) -Bx results-pending -clear liquid diet today and then NPO after MN -will schedule for EGD and colonoscopy in am -Will defer Hep B/C treatment to ID service given underlying HIV -VL count-pending -Cirrhosis with ascites-etiology most likely due to HBV/HCV and ETOH abuse- treat supportively at this time with avoidance of ETOH and treatment of HBV/HCV -will follow Subjective Date of service: 12/12/16 Principal diagnosis: Cirrhosis, Anemia Interval history: Patient resting in bed. No acute distress. Reports 1 BM last night with black stool. Denies abd pain, N/V, CP, SOB, or dizziness. Objective - Constitutional Vitals: Temp Pulse Resp BP Pulse Ox 98 F 84 18 160/90 97 12/12/16 08:00 12/12/16 09:19 12/12/16 09:19 12/12/16 08:00 12/12/16 08:00 General appearance: no acute distress - EENT Eyes: EOM intact ENT: hearing intact - Respiratory Respiratory: bilateral: CTA (anterior) - Cardiovascular Rhythm: regular Heart Sounds: Present: S1 & S2 - Extremities Extremities: No edema - Gastrointestinal General gastrointestinal: Present: soft, non-tender, normal bowel sounds, other (mild ascites) - Integumentary Integumentary: Present: warm, dry - Neurologic Neurological: alert and oriented x3 - Labs CBC & Chem 7: 12/12/16 04:39 12/12/16 04:39 Labs: Laboratory Results - last 24 hr 12/10/16 12/11/16 12/11/16 04:55 14:09 14:09 WBC RBC Hgb Hct MCV MCH MCHC RDW Plt Count Sodium Potassium Chloride Carbon Dioxide Anion Gap BUN Creatinine Estimated GFR BUN/Creatinine Ratio Glucose Calcium Ammonia 26.0 TSH 2.230 Hep B Core Total Ab Nonreactive 12/12/16 12/12/16 04:39 04:39 WBC 6.6 RBC 2.24 L Hgb 6.9 L Hct 20.9 L MCV 93 MCH 31 MCHC 33 RDW 21.3 H Plt Count 90 L Sodium 137 Potassium 4.1 Chloride 98.5 Carbon Dioxide 19 L Anion Gap 24 BUN 71 H Creatinine 6.6 H Estimated GFR 10 BUN/Creatinine Ratio 10.75 Glucose 86 Calcium 8.3 L Ammonia TSH Hep B Core Total Ab
--- NOTE | 2016-12-12 11:16 | Magnetic Resonance Report ---
MRI BRAIN WITHOUT CONTRAST INDICATION: Altered mental status, AIDS. GFR=10. COMPARISON: None similar. FINDINGS: Noncontrast multiplanar and multisequence MRI of the brain attempted, though limited due to motion artifact. No acute infarct, hemorrhage, mass effect or midline shift. Age-appropriate, symmetric, mildly enlarged ventricles and sulci. Mild periventricular and few white matter FLAIR and T2 weighted hyperintensities. No abnormal extra-axial masses or fluid collections. Normal major intracranial vascular flow voids. Normal posterior fossa with preserved basilar cisterns. Slight leftward nasal septal deviation. Right maxillary sinus noted asymmetrically smaller than the left. Grossly unremarkable eye globes. Right frontal sinus may be non-pneumatized or opacified. Clear remainder aerated paranasal sinuses. Bilateral mastoid air cell opacification. Normal midline structures without evidence of Chiari malformation. CONCLUSION: Bilateral mastoiditis and age-appropriate atrophy without acute intracranial MRI abnormality, as described. Please correlate. Thank you for the opportunity to participate in this patient's care.
--- NOTE | 2016-12-12 12:34 | Event Note ---
Date: 12/12/16 MRI Brain w/o Tomasz reviewed and negative for DIRECTOR CORPORATE process. Low GFR precluded Tomasz. TSH/NH4 neg. 61 YO M Hx HIV and AIDS a/w 2 weeks of generalized weakness on 12/07. Apparently pt was noted to have confusion on 12/10 but unclear further details. On my exam pt awake alert fully oriented following commands w/o focal deficit. Considering pt improved markedly between 12/10 and 12/11 per report syndrome likely consistent with toxic metabolic infectious derangement as the etiology for neurologic decompensation. There is no clear new focality/meningismus on neurologic examination to suggest acute DIRECTOR CORPORATE process e.g. Stroke, Seizure or Meningitis. Recommendations: 1. Cont Infectious work up/medical management for UTI, PNA, cellulitis, bacteremia, etc. Will defer to ID hospice care consultant on board for any further infectious work up. 2. Avoid hyponatremia,/hypercalcemia, hypo/hyperglycemia, acidosis, hypoxia/ hypoxemia, hypercarbia/hypercapnia 3. Avoid institution of any new psychoactive medications (e.g. antihistamines, anticholinergics, BZD, hypnotics, opiates) as able unless low doses of low potency antipsychotic needed for behavioral issues complicating medical care 4. Specific neurologic assessment of likelihood of prognosis back to baseline @ this point is limited as there is no active primary neurologic issue ongoing, and therefore prognosis will be completely secondary to any potential progress patient is able to make from multiple ongoing medical issues 5. Gradually reduce MAPs by 10-15% daily to reach normotension 6. Thiamine/Folate/CIWA protocol accordingly for any hx obtained to suggest EtOH withdrawal 7. Cont home meds-there is no neurologic indication to change 8. We can revisit as needed
--- NOTE | 2016-12-12 18:08 | Consultation ---
History of Present Illness - Reason for Consult Consult date: 12/12/16 HIV Infection Requesting physician: RADHA DICK - History of Present Illness Mr. Mayo is a 61-year-old man with multiple medical problems, including ESRD on HD and AIDS. He does not know who is HIV provider is and does not know what his most recent CD4 and viral load values were. He is admitted with weakness and unstable housing. He offers no other details regarding his present illness. ID consultation is requested for management of HIV infection. Past History Past Medical History: COPD, ESRD, HIV/AIDS, hypertension, other (Nicotine Dependence) Past Surgical History: Other (AV fistula) Social history: single, smoking. denies: alcohol abuse, prescription drug abuse , IV drug use Family history: diabetes, hypertension Medications and Allergies Allergies Allergy/AdvReac Type Severity Reaction Status Date / Time No Known Allergies Allergy Unverified 12/07/16 13:48 Home Medications Medication Instructions Recorded Confirmed Last Taken Type ALBUTEROL Inhaler [ProAir HFA 8.5 gram IH Q4-6H PRN MDD 4 12/07/16 12/07/16 Unknown History Inhaler] Albuterol Sulfate [Ventolin HFA] 8 gram IH PRN PRN 12/07/16 12/07/16 Unknown History AtorvaSTATin [Lipitor] 20 mg PO QHS 12/07/16 12/07/16 Unknown History Dapsone 100 mg PO DAILY 12/07/16 12/07/16 Unknown History Darunavir [Prezista] 800 mg PO DAILY 12/07/16 12/07/16 Unknown History Darunavir [Prezista] 800 mg PO DAILY 12/07/16 12/07/16 Unknown History Pnv with Ca#74/Iron/Folic Acid 1 tab PO DAILY 12/07/16 12/07/16 Unknown History [Vol-Plus Tablet] Ritonavir [Norvir] 100 mg PO DAILY 12/07/16 12/07/16 Unknown History Sevelamer Carbonate [Renvela] 800 mg PO TID 12/07/16 12/07/16 Unknown History Tenofovir [Viread] 300 mg PO DAILY 12/07/16 12/07/16 Unknown History Tiotropium [Spiriva] 1 puff IH DAILY 12/07/16 12/07/16 Unknown History amLODIPine [Norvasc] 10 mg PO DAILY 12/07/16 12/07/16 Unknown History lamiVUDine [Epivir Hbv] 75 mg PO DAILY 12/07/16 12/07/16 Unknown History Pantoprazole [Protonix TAB] 40 mg PO QDAY tablet 12/10/16 Unknown Rx Active Meds: Active Medications Acetaminophen (Tylenol) 650 mg PO Q4H PRN PRN Reason: Pain MILD(1-3)/Fever >100.5/YATES Last Admin: 12/09/16 20:53 Dose: 650 mg Albuterol (Proventil) 2.5 mg IH Q4HRT PRN PRN Reason: Wheezing Sodium Chloride (Nacl 0.9% 1000 Ml) 1,000 mls @ 50 mls/hr IV DIRECT [facility] Last Admin: 12/10/16 12:24 Dose: 50 mls/hr Pantoprazole Sodium (Protonix) 40 mg PO QDAY [facility] Last Admin: 12/12/16 09:21 Dose: 40 mg Sodium Chloride (Deep Sea) 1 spray NS TID [facility] Last Admin: 12/12/16 13:11 Dose: 1 spray Review of Systems All systems: negative Constitutional: weakness, poor appetite, no fever, no sweats Cardiovascular: shortness of breath, no chest pain Respiratory: cough, dyspnea on exertion, no excessive sputum Gastrointestinal: no abdominal pain, no nausea, no vomiting, no diarrhea Genitourinary Male: no dysuria, no hematuria Integumentary: no rash, no pruritis Neurological: no headaches Hematologic/Lymphatic: no lymphadenopathy Physical Examination - Constitutional Vitals: Vital Signs Temp Pulse Resp BP Pulse Ox 99.0 F 100 H 20 147/84 97 12/12/16 17:04 12/12/16 17:04 12/12/16 17:04 12/12/16 17:04 12/12/16 15:58 Temperature -Last 24 Hours Temperature 99.0 F Temperature 98.7 F Temperature 98.9 F Temperature 98.7 F Temperature 98.6 F Temperature 98.9 F Temperature 98.3 F Temperature 98.9 F Temperature 98.9 F Temperature 98.3 F Temperature 98.5 F Temperature 97.9 F Temperature 98.6 F Temperature 98.6 F Temperature 98.6 F Temperature 98.6 F Temperature 98 F Temperature 98.3 F General appearance: Present: no acute distress, other (thin man) - EENT Eyes: Absent: scleral icterus, conjunctival injection ENT: other (crowded posterior pharynx with tongue), no thrush - Neck Neck: Present: supple - Respiratory Respiratory effort: normal Respiratory: bilateral: CTA, negative: wheezing - Cardiovascular Rhythm: regular Heart Sounds: Present: S1 & S2 - Abdominal General gastrointestinal: Present: soft, non-tender, non-distended - Integumentary Integumentary: Absent: rash - Psychiatric Psychiatric: appropriate mood/affect - Neurologic Neurologic: no focal deficits - Additional findings Additional findings: AV fistula left arm with thrill Results - Labs CBC & Chem 7: 12/14/16 05:00 12/13/16 04:46 Labs: Abnormal lab results 12/12/16 12/12/16 12/12/16 Range/Units 04:39 04:39 11:03 RBC 2.24 L (3.65-5.03) M/mm3 Hgb 6.9 L (11.8-15.2) gm/dl Hct 20.9 L (35.5-45.6) % RDW 21.3 H (13.2-15.2) % Plt Count 90 L (140-440) K/mm3 Carbon Dioxide 19 L (22-30) mmol/L BUN 71 H (9-20) mg/dL Creatinine 6.6 H (0.8-1.5) mg/dL Calcium 8.3 L (8.4-10.2) mg/dL Crossmatch See Detail - Imaging and Cardiology MRI - head: report reviewed (bilateral mastoiditis and age-appropriate atrophy) Assessment and Plan - Patient Problems (1) AIDS Current Visit: Yes Status: Chronic Plan to address problem: 1. Await CD4 to determine if patient requires OI prophylaxis. He has been prescribed Dapsone previously. 2. Will resume renally adjusted home regimen of Viread, Epivir and boosted Prezista.
[2016-12-13 05:50] LABS: Basophils % (Auto) 0.7 % (0.0-1.8); Eosinophils % (Auto) 0.5 % (0.0-4.3); Hematocrit 25.8 % (35.5-45.6); Hemoglobin 8.7 gm/dl (11.8-15.2); Mean Corpuscular HGB Conc 34 % (32-34); Mean Corpuscular Hemoglobin 30 pg (28-32); Mean Corpuscular Volume 90 fl (84-94); Red Blood Count 2.86 M/mm3 (3.65-5.03); White Blood Count 8.3 K/mm3 (4.5-11.0)
[2016-12-13 05:51] LABS: Platelet Count 81 K/mm3 (140-440); Red Cell Distribution Width 20.5 % (13.2-15.2)
[2016-12-13 05:58] LABS: BUN/Creatinine Ratio 12.22; Calcium 8.7 mg/dL (8.4-10.2); Chloride 97.3 mmol/L (98-107); Potassium 4.5 mmol/L (3.6-5.0)
[2016-12-13 05:59] LABS: INR 1.66 (0.87-1.13)
[2016-12-13] MEDS ORDERED: VIREAD PO SCH (10:00)
--- NOTE | 2016-12-13 10:18 | Progress Note ---
Subjective Principal diagnosis: Cirrhosis, Anemia Interval history: Patient was seen today for follow-up on multiple renal related issues Has had a GI evaluation, patient is currently homeless, appetite is good patient is currently homeless Is currently being seen by multiple specialities Hemoglobin has currently declined again Encephalopathy velásquez is much better oriented Physical examination General: No acute distress not well-kept. Cachectic male who has lost significant amount of muscle mass HEENT; oral mucosa moist mild pallor Neck: Supple no JVD Chest: Clear to auscultation no crackles rales wheezes Heart: Regular rate, S1 and S2 heard no S3-S4 Abdomen: Soft nontender bowel sounds present, dull flank with some fluid thrill somewhat distended abdomen Extremities examination reveals the patient does have loss of muscle mass dry skin 1+ edema Neurological alert awake follows simple command Assessment and plan End-stage renal disease: Patient will continue to dialyze on Friday schedule Anemia and end-stage renal disease: Status post GI evaluation patient also needs hematology evaluation and possibly a bone marrow study Post PRBC now Patient clinically does appear to have ascites which could be multifactorial again , discussed with Dr. Virgilio Lane yesterday to follow and this time at some point he will need colonoscopy but he is currently considered to be high risk Encephalopathy weakness generalized deconditioning falllspatient needs placement Current dialysis access is a fistula which has been working well last evaluated 4 months ago Continue with supportive care Overall prognosis is very poor due to multiorgan problems Continue to monitor labs Counseling and education was done regarding renal related issues Objective - Vital Signs Vital signs: Vital Signs - 12hr 12/13/16 08:00 Temperature 99.8 F H Pulse Rate [ 90 Right Radial] Respiratory 18 Rate Blood Pressure 173/92 [Right Arm] O2 Sat by Pulse 98 Oximetry - Lab 12/14/16 05:00 12/14/16 05:00 Most recent lab results Calcium 8.7 mg/dL (8.4-10.2) 12/13/16 04:46 Phosphorus 5.80 mg/dL (2.5-4.5) H 12/07/16 15:29
--- NOTE | 2016-12-13 10:22 | Gastroenterology Progress Note ---
Assessment and Plan 1.anemia 2.cirrhosis 2.ESRD 3.AIDS 4.Hep B 5.Hep C -HGB 8.7 today-s/p transfusion of 2 units yesterday with appropriate rise -continue to monitor H&H and transfuse as needed -hold blood thinning medications -pt reports 1 BM this morning with black stool -continue PPI -S/P EGD on 12/10-revealed esophagitis, gastric AVM (treated with APC), and duodenitis (bx obtained) -Bx results-pending -clear liquid diet today and then NPO after MN -will schedule for EGD and colonoscopy in am -Will defer Hep B/C treatment to ID service given underlying HIV -VL count-pending -Cirrhosis with ascites-etiology most likely due to HBV/HCV and ETOH abuse- treat supportively at this time with avoidance of ETOH and treatment of HBV/HCV -will follow Subjective Date of service: 12/13/16 Principal diagnosis: Cirrhosis, Anemia Interval history: Patient resting in bed. No acute distress. Reports 1 BM this morning with black stool. Denies abd pain, N/V, CP, SOB, or dizziness. Objective - Constitutional Vitals: Temp Pulse Resp BP Pulse Ox 99.8 F H 90 18 173/92 98 12/13/16 08:00 12/13/16 08:00 12/13/16 08:00 12/13/16 08:00 12/13/16 08:00 General appearance: no acute distress, cachectic - EENT Eyes: PERRL, EOM intact ENT: hearing intact - Neck Neck: normal ROM - Respiratory Respiratory: bilateral: CTA (anterior) - Cardiovascular Rhythm: regular Heart Sounds: Present: S1 & S2 - Extremities Extremities: No edema - Gastrointestinal General gastrointestinal: Present: soft, non-tender, normal bowel sounds, other (mild ascites) - Integumentary Integumentary: Present: warm, dry - Neurologic Neurological: alert and oriented x3 - Psychiatric Psychiatric: appropriate mood/affect, cooperative - Labs CBC & Chem 7: 12/13/16 04:46 12/13/16 04:46 Labs: Laboratory Results - last 24 hr 12/12/16 12/13/16 12/13/16 11:03 04:46 04:46 WBC 8.3 RBC 2.86 L Hgb 8.7 L Hct 25.8 L MCV 90 MCH 30 MCHC 34 RDW 20.5 H Plt Count 81 L Lymph % (Auto) 13.5 [place] % (Auto) 8.3 H Eos % (Auto) 0.5 Baso % (Auto) 0.7 Lymph # 1.1 L [place] # 0.7 Eos # 0.0 Baso # 0.1 Seg Neutrophils % 77.0 H Seg Neutrophils # 6.4 PT INR Sodium 134 L Potassium 4.5 Chloride 97.3 L Carbon Dioxide 17 L Anion Gap 24 BUN 88 H Creatinine 7.2 H Estimated GFR 9 BUN/Creatinine Ratio 12.22 Glucose 78 Calcium 8.7 Blood Type A POSITIVE Antibody Screen TNR VLADIMIR Antibody Screen Negative Crossmatch See Detail 12/13/16 04:46 WBC RBC Hgb Hct MCV MCH MCHC RDW Plt Count Lymph % (Auto) [place] % (Auto) Eos % (Auto) Baso % (Auto) Lymph # [place] # Eos # Baso # Seg Neutrophils % Seg Neutrophils # PT 19.6 H INR 1.66 H Sodium Potassium Chloride Carbon Dioxide Anion Gap BUN Creatinine Estimated GFR BUN/Creatinine Ratio Glucose Calcium Blood Type Antibody Screen VLADIMIR Antibody Screen Crossmatch
--- NOTE | 2016-12-13 10:24 | Progress Note ---
Assessment and Plan Assessment and plan: Anemia of chronic disease Patient is status post PRBCs yesterday. Hemoglobin is stable. GI to perform colonoscopy in a.m. EGD revealed grade A esophagitis and solitary medium-sized AVM and gastric fundus. Also, irregular nodular mucosa throughout the duodenum that was friable and likely source of bleeding. CT abdomen 12/08/2016 CT pelvis without contrast: Nodular contour of the liver may be secondary to cirrhosis with portal hypertension. Clinical correlation is requested. Diminutive multicystic kidneys. Large volume of abdominal and pelvic ascites may be secondary to hepatic and/or renal finding as above. Combination of ascites and vascular coils compromises evaluation adrenal gland and much of the pancreas. Continue epogen as per nephrology, GI following. Patient will likely be hematology evaluation and potentially bone marrow biopsy that can be done as an outpatient. Encephalopathy. Resolving. MRI reveals bilateral mastoiditis and no other acute findings. Neurology believes that the neurologic decompensation most likely is related to toxic metabolic causes and no acute MELTER CASTER process. End stage renal disease on dialysis Nephrology following, continue HD Metabolic acidosis Due to ESRD supportive care, dialysis as per renal, continue home medication. Severe malnutrition encourage increased protein intake, Eye Surgeon consulted AIDS ID following. Resume retroviral meds Tobacco abuse counseling performed Deconditioning Case management has arranged for SNF placement. DVT prophylaxis scds in in light of anemia History Interval history: No new issues overnight. Hospitalist Physical - Constitutional Vitals: Temp Pulse Resp BP Pulse Ox 99.8 F H 90 18 173/92 98 12/13/16 08:00 12/13/16 08:00 12/13/16 08:00 12/13/16 08:00 12/13/16 08:00 General appearance: Present: no acute distress, well-nourished - EENT Eyes: Present: PERRL, EOM intact ENT: hearing intact, clear oral mucosa, dentition normal - Neck Neck: Present: supple, normal ROM - Respiratory Respiratory effort: normal Respiratory: bilateral: CTA - Cardiovascular Rhythm: regular Heart Sounds: Present: S1 & S2. Absent: gallop, rub - Extremities Extremities: no ischemia, No edema, Full ROM - Abdominal General gastrointestinal: soft, non-tender, non-distended, normal bowel sounds - Integumentary Integumentary: Present: clear, warm, dry - Neurologic Neurologic: CNII-XII intact, moves all extremities Results - Labs CBC & Chem 7: 12/13/16 04:46 12/13/16 04:46 Labs: Laboratory Last Values WBC 8.3 K/mm3 (4.5-11.0) 12/13/16 04:46 RBC 2.86 M/mm3 (3.65-5.03) L 12/13/16 04:46 Hgb 8.7 gm/dl (11.8-15.2) L 12/13/16 04:46 Hct 25.8 % (35.5-45.6) L 12/13/16 04:46 MCV 90 fl (84-94) 12/13/16 04:46 MCH 30 pg (28-32) 12/13/16 04:46 MCHC 34 % (32-34) 12/13/16 04:46 RDW 20.5 % (13.2-15.2) H 12/13/16 04:46 Plt Count 81 K/mm3 (140-440) L 12/13/16 04:46 Lymph % (Auto) 13.5 % (13.4-35.0) 12/13/16 04:46 [place] % (Auto) 8.3 % (0.0-7.3) H 12/13/16 04:46 Eos % (Auto) 0.5 % (0.0-4.3) 12/13/16 04:46 Baso % (Auto) 0.7 % (0.0-1.8) 12/13/16 04:46 Lymph # 1.1 K/mm3 (1.2-5.4) L 12/13/16 04:46 [place] # 0.7 K/mm3 (0.0-0.8) 12/13/16 04:46 Eos # 0.0 K/mm3 (0.0-0.4) 12/13/16 04:46 Baso # 0.1 K/mm3 (0.0-0.1) 12/13/16 04:46 Seg Neutrophils % 77.0 % (40.0-70.0) H 12/13/16 04:46 Seg Neutrophils # 6.4 K/mm3 (1.8-7.7) 12/13/16 04:46 PT 19.6 Sec. (12.2-14.9) H 12/13/16 04:46 INR 1.66 (0.87-1.13) H 12/13/16 04:46 APTT 40.3 Sec. (24.2-36.6) H 12/07/16 15:29 Sodium 134 mmol/L (137-145) L 12/13/16 04:46 Potassium 4.5 mmol/L (3.6-5.0) 12/13/16 04:46 Chloride 97.3 mmol/L (98-107) L 12/13/16 04:46 Carbon Dioxide 17 mmol/L (22-30) L 12/13/16 04:46 Anion Gap 24 mmol/L 12/13/16 04:46 BUN 88 mg/dL (9-20) H 12/13/16 04:46 Creatinine 7.2 mg/dL (0.8-1.5) H 12/13/16 04:46 Estimated GFR 9 ml/min 12/13/16 04:46 BUN/Creatinine Ratio 12.22 % 12/13/16 04:46 Glucose 78 mg/dL (75-100) 12/13/16 04:46 Calcium 8.7 mg/dL (8.4-10.2) 12/13/16 04:46 Phosphorus 5.80 mg/dL (2.5-4.5) H 12/07/16 15:29 Total Bilirubin 0.50 mg/dL (0.1-1.2) 12/07/16 13:58 AST 51 units/L (5-40) H 12/07/16 13:58 ALT 43 units/L (7-56) 12/07/16 13:58 Alkaline Phosphatase 142 units/L (35-129) H 12/07/16 13:58 Ammonia 26.0 umol/L (25-60) 12/11/16 14:09 Total Protein 8.1 g/dL (6.3-8.2) 12/07/16 13:58 Albumin 3.0 g/dL (3.9-5) L 12/07/16 13:58 Albumin/Globulin Ratio 0.6 % 12/07/16 13:58 TSH 2.230 mlU/mL (0.270-4.200) 12/11/16 14:09 Hep Bs Antigen Reactive (Negative) 12/10/16 04:55 Hep B Core Total Ab Nonreactive (Nonreactive) 12/10/16 04:55 Hepatitis C Antibody Reactive (NonReactive) A 12/10/16 04:55 Blood Type A POSITIVE 12/12/16 11:03 Antibody Screen TNR 12/12/16 11:03 VLADIMIR Antibody Screen Negative 12/12/16 11:03 Crossmatch See Detail 12/12/16 11:03
[2016-12-13] MEDS ORDERED: NACL 0.9% 100 ML IV PRN (11:34)
[2016-12-13] MEDS ORDERED: GOLYTELY PO ONE (12:00)
[2016-12-13] MEDS ORDERED: PROCRIT IV SCH (12:00)
[2016-12-13] MEDS: DEEP SEA NS SCH ×3 (12:04→21:51)
[2016-12-13] MEDS: NORVIR PO SCH (17:47)
[2016-12-13] MEDS: EPIVIR PO SCH (17:47)
[2016-12-13] MEDS: PREZISTA PO SCH (17:47)
[2016-12-13] MEDS: PROTONIX PO SCH (17:48)
[2016-12-13] MEDS: TYLENOL PO PRN (21:51)
[2016-12-14 06:06] LABS: Basophils % (Auto) 0.4 % (0.0-1.8); Eosinophils % (Auto) 0.1 % (0.0-4.3); Hematocrit 25.2 % (35.5-45.6); Hemoglobin 8.5 gm/dl (11.8-15.2); Mean Corpuscular HGB Conc 34 % (32-34); Mean Corpuscular Hemoglobin 30 pg (28-32); Mean Corpuscular Volume 90 fl (84-94); White Blood Count 10.2 K/mm3 (4.5-11.0)
[2016-12-14 06:07] LABS: Platelet Count 90 K/mm3 (140-440); Red Cell Distribution Width 20.6 % (13.2-15.2)
[2016-12-14 06:36] LABS: BUN/Creatinine Ratio 10.75; Chloride 96.2 mmol/L (98-107); Potassium 3.8 mmol/L (3.6-5.0)
--- NOTE | 2016-12-14 06:41 | Progress Note ---
Assessment and Plan - Patient Problems (1) Fever Current Visit: Yes Status: Acute Qualifiers: Fever type: unspecified Encounter type: E Qualified Code(s): R50.9 - Fever, unspecified Plan to address problem: Blood and stool samples have been sent for culture. Await culture data. Empiric dose of IV Vancomycin for now. Will obtain a chest xray. (2) AIDS Current Visit: Yes Status: Chronic Plan to address problem: Continue renally adjusted ARVs. Await CD4 data. Subjective Date of service: 12/14/16 Principal diagnosis: Cirrhosis, Anemia Interval history: Febrile to 102.5 deg F overnight. Patient complained of diarrhea for multiple episodes yesterday. He denies any new complaints. Objective - Constitutional Vitals: Vital Signs Temp Pulse Resp BP Pulse Ox 102.5 F H 97 H 20 152/84 95 12/13/16 21:00 12/13/16 21:00 12/13/16 21:00 12/13/16 21:00 12/13/16 21:00 Temperature -Last 24 Hours Temperature 102.5 F Temperature 98.8 F Temperature 99.8 F Temperature 99.8 F General appearance: Present: no acute distress - EENT ENT: clear oral mucosa - Neck Neck: supple - Respiratory Respiratory effort: other (tachypneic) Respiratory: bilateral: CTA, negative: wheezing - Cardiovascular Rhythm: regular Heart Sounds: Present: S1 & S2 Extremities: No edema - Gastrointestinal General gastrointestinal: Present: soft, non-distended - Integumentary Integumentary: no jaundice - Neurologic Neurologic: no focal deficits - Psychiatric Psychiatric: agitated (mildly) - Additional findings Additional findings: AV fistula left arm without signs of infection - Labs CBC & Chem 7: 12/14/16 05:00 12/14/16 05:00 Labs: Abnormal lab results 12/14/16 12/14/16 Range/Units 05:00 05:00 RBC 2.80 L (3.65-5.03) M/mm3 Hgb 8.5 L (11.8-15.2) gm/dl Hct 25.2 L (35.5-45.6) % RDW 20.6 H (13.2-15.2) % Plt Count 90 L (140-440) K/mm3 Lymph % (Auto) 4.8 L (13.4-35.0) % [place] % (Auto) 8.9 H (0.0-7.3) % Lymph # 0.5 L (1.2-5.4) K/mm3 [place] # 0.9 H (0.0-0.8) K/mm3 Seg Neutrophils % 85.8 H (40.0-70.0) % Seg Neutrophils # 8.7 H (1.8-7.7) K/mm3 Chloride 96.2 L (98-107) mmol/L Carbon Dioxide 20 L (22-30) mmol/L BUN 57 H (9-20) mg/dL Creatinine 5.3 H (0.8-1.5) mg/dL Microbiology 12/13/16 22:47 Peripheral/Venous Blood Culture - Preliminary Culture in Progress 12/13/16 22:47 Peripheral/Venous Blood Culture - Preliminary Culture in Progress 12/11/16 14:08 Serum Cryptococcal Antigen - Final (negative)
[2016-12-14] MEDS ORDERED: VANCOMYCIN/NS 1 GM/250 ML 1 GM/250 ML BAG IV ONE (07:47)
[2016-12-14] MEDS: DEEP SEA NS SCH ×3 (08:57→20:00)
[2016-12-14] MEDS: TYLENOL PO PRN (09:09)
--- NOTE | 2016-12-14 09:55 | XRay Report ---
AP CHEST: HISTORY: Fever, tachycardia There is borderline to mild cardiomegaly. Mild central pulmonary venous congestion. No consolidation, pleural effusion or pneumothorax. Normal bony structures. IMPRESSION: Borderline to mild cardiomegaly and pulmonary venous congestion.
--- NOTE | 2016-12-14 10:44 | Progress Note ---
Assessment and Plan Assessment and plan: Fever Etiology is unknown. ID has started them. Vancomycin. Follow-up blood and stool studies. Anemia of chronic disease Patient is status post PRBCs yesterday. Hemoglobin is stable. GI head plan to perform colonoscopy however patient refused. EGD revealed grade A esophagitis and solitary medium-sized AVM and gastric fundus. Also, irregular nodular mucosa throughout the duodenum that was friable and likely source of bleeding. CT abdomen 12/08/2016 CT pelvis without contrast: Nodular contour of the liver may be secondary to cirrhosis with portal hypertension. Clinical correlation is requested. Diminutive multicystic kidneys. Large volume of abdominal and pelvic ascites may be secondary to hepatic and/or renal finding as above. Combination of ascites and vascular coils compromises evaluation adrenal gland and much of the pancreas. Continue epogen as per nephrology, GI following. Patient will likely be hematology evaluation and potentially bone marrow biopsy that can be done as an outpatient. Encephalopathy. Resolving. MRI reveals bilateral mastoiditis and no other acute findings. Neurology believes that the neurologic decompensation most likely is related to toxic metabolic causes and no acute BEAUTY SALES ADVISOR process. End stage renal disease on dialysis Nephrology following, continue HD Metabolic acidosis Due to ESRD supportive care, dialysis as per renal, continue home medication. Severe malnutrition encourage increased protein intake, Wagon Driller consulted AIDS ID following. Continued retroviral meds. Follow-up CD4 data Tobacco abuse counseling performed Deconditioning Case management has arranged for SNF placement. DVT prophylaxis scds in in light of anemia History Interval history: No new issues overnight. Hospitalist Physical - Constitutional Vitals: Temp Pulse Resp BP Pulse Ox 101.5 F H 94 H 18 129/72 93 12/14/16 07:00 12/14/16 07:00 12/14/16 07:00 12/14/16 07:00 12/14/16 07:00 General appearance: Present: no acute distress - EENT Eyes: Present: PERRL, EOM intact ENT: hearing intact, clear oral mucosa, dentition normal - Neck Neck: Present: supple, normal ROM - Respiratory Respiratory effort: normal Respiratory: bilateral: CTA - Cardiovascular Rhythm: regular Heart Sounds: Present: S1 & S2. Absent: gallop, rub - Extremities Extremities: no ischemia, No edema, Full ROM - Abdominal General gastrointestinal: soft, non-tender, non-distended, normal bowel sounds - Integumentary Integumentary: Present: clear, warm, dry - Neurologic Neurologic: CNII-XII intact, moves all extremities Results - Labs CBC & Chem 7: 12/14/16 05:00 12/14/16 05:00 Labs: Laboratory Last Values WBC 10.2 K/mm3 (4.5-11.0) 12/14/16 05:00 RBC 2.80 M/mm3 (3.65-5.03) L 12/14/16 05:00 Hgb 8.5 gm/dl (11.8-15.2) L 12/14/16 05:00 Hct 25.2 % (35.5-45.6) L 12/14/16 05:00 MCV 90 fl (84-94) 12/14/16 05:00 MCH 30 pg (28-32) 12/14/16 05:00 MCHC 34 % (32-34) 12/14/16 05:00 RDW 20.6 % (13.2-15.2) H 12/14/16 05:00 Plt Count 90 K/mm3 (140-440) L 12/14/16 05:00 Lymph % (Auto) 4.8 % (13.4-35.0) L 12/14/16 05:00 [place] % (Auto) 8.9 % (0.0-7.3) H 12/14/16 05:00 Eos % (Auto) 0.1 % (0.0-4.3) 12/14/16 05:00 Baso % (Auto) 0.4 % (0.0-1.8) 12/14/16 05:00 Lymph # 0.5 K/mm3 (1.2-5.4) L 12/14/16 05:00 [place] # 0.9 K/mm3 (0.0-0.8) H 12/14/16 05:00 Eos # 0.0 K/mm3 (0.0-0.4) 12/14/16 05:00 Baso # 0.0 K/mm3 (0.0-0.1) 12/14/16 05:00 Seg Neutrophils % 85.8 % (40.0-70.0) H 12/14/16 05:00 Seg Neutrophils # 8.7 K/mm3 (1.8-7.7) H 12/14/16 05:00 PT 19.6 Sec. (12.2-14.9) H 12/13/16 04:46 INR 1.66 (0.87-1.13) H 12/13/16 04:46 APTT 40.3 Sec. (24.2-36.6) H 12/07/16 15:29 Sodium 134 mmol/L (137-145) L 12/13/16 04:46 Potassium 3.8 mmol/L (3.6-5.0) 12/14/16 05:00 Chloride 96.2 mmol/L (98-107) L 12/14/16 05:00 Carbon Dioxide 20 mmol/L (22-30) L 12/14/16 05:00 Anion Gap 26 mmol/L 12/14/16 05:00 BUN 57 mg/dL (9-20) H 12/14/16 05:00 Creatinine 5.3 mg/dL (0.8-1.5) H 12/14/16 05:00 Estimated GFR 13 ml/min 12/14/16 05:00 BUN/Creatinine Ratio 10.75 % 12/14/16 05:00 Glucose 84 mg/dL (75-100) 12/14/16 05:00 Calcium 9.0 mg/dL (8.4-10.2) 12/14/16 05:00 Phosphorus 5.80 mg/dL (2.5-4.5) H 12/07/16 15:29 Total Bilirubin 0.50 mg/dL (0.1-1.2) 12/07/16 13:58 AST 51 units/L (5-40) H 12/07/16 13:58 ALT 43 units/L (7-56) 12/07/16 13:58 Alkaline Phosphatase 142 units/L (35-129) H 12/07/16 13:58 Ammonia 26.0 umol/L (25-60) 12/11/16 14:09 Total Protein 8.1 g/dL (6.3-8.2) 12/07/16 13:58 Albumin 3.0 g/dL (3.9-5) L 12/07/16 13:58 Albumin/Globulin Ratio 0.6 % 12/07/16 13:58 TSH 2.230 mlU/mL (0.270-4.200) 12/11/16 14:09 Hep Bs Antigen Reactive (Negative) 12/10/16 04:55 Hep B Core Total Ab Nonreactive (Nonreactive) 12/10/16 04:55 Hepatitis C Antibody Reactive (NonReactive) A 12/10/16 04:55 Blood Type A POSITIVE 12/12/16 11:03 Antibody Screen TNR 12/12/16 11:03 VLADIMIR Antibody Screen Negative 12/12/16 11:03 Crossmatch See Detail 12/12/16 11:03
--- NOTE | 2016-12-14 10:51 | Progress Note ---
Assessment and Plan Assessment * End-stage renal disease * Fever * Encephalopathy * HIV/AIDS * Hep B/C cirrhosis * Anemia secondary to end-stage renal disease vs other Plan: * Continue HD MWF * UF as tolerated * GI and ID recommendations noted * Abx per ID * Dose medications for renal function * Will order Nepro/Novasource renal Subjective Date of service: 12/14/16 Principal diagnosis: Cirrhosis, Anemia Interval history: Patient c/o loss of appetite. Denies SOB. Objective - Vital Signs Vital signs: Vital Signs - 12hr 12/14/16 07:00 Temperature 101.5 F H Pulse Rate 94 H Respiratory 18 Rate Blood Pressure 129/72 O2 Sat by Pulse 93 Oximetry - General Appearance General appearance: frail EENT: ATNC Respiratory: Present: Clear to Ascultation Cardiology: regular, S1S2 Gastrointestinal: no tenderness, no distended Neurologic: no focal deficit Musculoskeletal: other (no edema) Psychiatric: cooperative - Lab 12/14/16 05:00 12/14/16 05:00 Most recent lab results Calcium 9.0 mg/dL (8.4-10.2) 12/14/16 05:00 Phosphorus 5.80 mg/dL (2.5-4.5) H 12/07/16 15:29
[2016-12-14] MEDS: PREZISTA PO SCH (11:00)
[2016-12-14] MEDS: NORVIR PO SCH (11:00)
[2016-12-14] MEDS: PROTONIX PO SCH (11:02)
[2016-12-14] MEDS: EPIVIR PO SCH (11:02)
[2016-12-15] MEDS: TYLENOL PO PRN (00:02)
[2016-12-15] MEDS: DEEP SEA NS SCH ×3 (10:00→22:46)
[2016-12-15] MEDS: PREZISTA PO SCH (10:07)
[2016-12-15] MEDS: PROTONIX PO SCH (10:07)
[2016-12-15] MEDS: NORVIR PO SCH (10:07)
--- NOTE | 2016-12-15 10:56 | Progress Note ---
Assessment and Plan Assessment and plan: Fever Etiology is unknown. ID has started empiric Vancomycin. Follow-up blood and stool studies. Anemia of chronic disease Patient is status post PRBCs yesterday. Hemoglobin is stable. GI head plan to perform colonoscopy however patient refused. EGD revealed grade A esophagitis and solitary medium-sized AVM and gastric fundus. Also, irregular nodular mucosa throughout the duodenum that was friable and likely source of bleeding. CT abdomen 12/08/2016 CT pelvis without contrast: Nodular contour of the liver may be secondary to cirrhosis with portal hypertension. Clinical correlation is requested. Diminutive multicystic kidneys. Large volume of abdominal and pelvic ascites may be secondary to hepatic and/or renal finding as above. Combination of ascites and vascular coils compromises evaluation adrenal gland and much of the pancreas. Continue epogen as per nephrology, GI following. Hematology consultation Encephalopathy. Resolving. MRI reveals bilateral mastoiditis and no other acute findings. Neurology believes that the neurologic decompensation most likely is related to toxic metabolic causes and no acute APARTMENT LEASING SPECIALIST process. End stage renal disease on dialysis Nephrology following, continue HD Metabolic acidosis Due to ESRD supportive care, dialysis as per renal, continue home medication. Severe malnutrition encourage increased protein intake, Point Of Sale Associate consulted AIDS ID following. Continued retroviral meds. Follow-up CD4 data Tobacco abuse counseling performed Deconditioning Case management has arranged for SNF placement. DVT prophylaxis scds in in light of anemia History Interval history: No new issues overnight. Hospitalist Physical - Constitutional Vitals: Temp Pulse Resp BP Pulse Ox 99.6 F 84 18 145/68 95 12/15/16 08:00 12/15/16 08:00 12/15/16 08:00 12/15/16 08:00 12/15/16 08:00 General appearance: Present: no acute distress - EENT Eyes: Present: PERRL, EOM intact ENT: hearing intact, clear oral mucosa, dentition normal - Neck Neck: Present: supple, normal ROM - Respiratory Respiratory effort: normal Respiratory: bilateral: CTA - Cardiovascular Rhythm: regular Heart Sounds: Present: S1 & S2. Absent: gallop, rub - Extremities Extremities: no ischemia, No edema, Full ROM - Abdominal General gastrointestinal: soft, non-tender, non-distended, normal bowel sounds - Integumentary Integumentary: Present: clear, warm, dry - Neurologic Neurologic: CNII-XII intact, moves all extremities Results - Labs CBC & Chem 7: 12/14/16 05:00 12/14/16 05:00 Labs: Laboratory Last Values WBC 10.2 K/mm3 (4.5-11.0) 12/14/16 05:00 RBC 2.80 M/mm3 (3.65-5.03) L 12/14/16 05:00 Hgb 8.5 gm/dl (11.8-15.2) L 12/14/16 05:00 Hct 25.2 % (35.5-45.6) L 12/14/16 05:00 MCV 90 fl (84-94) 12/14/16 05:00 MCH 30 pg (28-32) 12/14/16 05:00 MCHC 34 % (32-34) 12/14/16 05:00 RDW 20.6 % (13.2-15.2) H 12/14/16 05:00 Plt Count 90 K/mm3 (140-440) L 12/14/16 05:00 Lymph % (Auto) 4.8 % (13.4-35.0) L 12/14/16 05:00 [place] % (Auto) 8.9 % (0.0-7.3) H 12/14/16 05:00 Eos % (Auto) 0.1 % (0.0-4.3) 12/14/16 05:00 Baso % (Auto) 0.4 % (0.0-1.8) 12/14/16 05:00 Lymph # 0.5 K/mm3 (1.2-5.4) L 12/14/16 05:00 [place] # 0.9 K/mm3 (0.0-0.8) H 12/14/16 05:00 Eos # 0.0 K/mm3 (0.0-0.4) 12/14/16 05:00 Baso # 0.0 K/mm3 (0.0-0.1) 12/14/16 05:00 Seg Neutrophils % 85.8 % (40.0-70.0) H 12/14/16 05:00 Seg Neutrophils # 8.7 K/mm3 (1.8-7.7) H 12/14/16 05:00 Abs Lymphs (Manual) 1077 cells/uL (850-3900) 12/11/16 18:31 PT 19.6 Sec. (12.2-14.9) H 12/13/16 04:46 INR 1.66 (0.87-1.13) H 12/13/16 04:46 APTT 40.3 Sec. (24.2-36.6) H 12/07/16 15:29 Sodium 134 mmol/L (137-145) L 12/13/16 04:46 Potassium 3.8 mmol/L (3.6-5.0) 12/14/16 05:00 Chloride 96.2 mmol/L (98-107) L 12/14/16 05:00 Carbon Dioxide 20 mmol/L (22-30) L 12/14/16 05:00 Anion Gap 26 mmol/L 12/14/16 05:00 BUN 57 mg/dL (9-20) H 12/14/16 05:00 Creatinine 5.3 mg/dL (0.8-1.5) H 12/14/16 05:00 Estimated GFR 13 ml/min 12/14/16 05:00 BUN/Creatinine Ratio 10.75 % 12/14/16 05:00 Glucose 84 mg/dL (75-100) 12/14/16 05:00 Calcium 9.0 mg/dL (8.4-10.2) 12/14/16 05:00 Phosphorus 5.80 mg/dL (2.5-4.5) H 12/07/16 15:29 Total Bilirubin 0.50 mg/dL (0.1-1.2) 12/07/16 13:58 AST 51 units/L (5-40) H 12/07/16 13:58 ALT 43 units/L (7-56) 12/07/16 13:58 Alkaline Phosphatase 142 units/L (35-129) H 12/07/16 13:58 Ammonia 26.0 umol/L (25-60) 12/11/16 14:09 Total Protein 8.1 g/dL (6.3-8.2) 12/07/16 13:58 Albumin 3.0 g/dL (3.9-5) L 12/07/16 13:58 Albumin/Globulin Ratio 0.6 % 12/07/16 13:58 TSH 2.230 mlU/mL (0.270-4.200) 12/11/16 14:09 Lymph Enumerat CD4/CD8 0.56 (0.86-5.00) L 12/11/16 18:31 % CD3 Cells 80 % (57-85) 12/11/16 18:31 Absolute CD3 Count 857 cells/uL (840-3060) 12/11/16 18:31 % CD4 Cells 28 % (30-61) L 12/11/16 18:31 Absolute CD4 Count 295 cells/uL (490-1740) L 12/11/16 18:31 % CD8 Cells 50 % (12-42) H 12/11/16 18:31 Absolute CD8 Count 530 cells/uL (180-1170) 12/11/16 18:31 % CD19 Cells 11 % (6-29) 12/11/16 18:31 Absolute CD19 Count 118 cells/uL (110-660) 12/11/16 18:31 Hep Bs Antigen Reactive (Negative) 12/10/16 04:55 Hep B Core Total Ab Nonreactive (Nonreactive) 12/10/16 04:55 Hepatitis C Antibody Reactive (NonReactive) A 12/10/16 04:55 Blood Type A POSITIVE 12/12/16 11:03 Antibody Screen TNR 12/12/16 11:03 VLADIMIR Antibody Screen Negative 12/12/16 11:03 Crossmatch See Detail 12/12/16 11:03
--- NOTE | 2016-12-15 15:14 | Progress Note ---
Assessment and Plan Assessment * End-stage renal disease * Fever * Encephalopathy * HIV/AIDS * Hep B/C cirrhosis * Anemia secondary to end-stage renal disease vs other Plan: * Continue HD MWF * UF as tolerated * GI and ID recommendations noted * Abx per ID * Dose medications for renal function Subjective Date of service: 12/15/16 Principal diagnosis: Cirrhosis, Anemia Interval history: No acute events overnight. Objective - Vital Signs Vital signs: Vital Signs - 12hr 12/15/16 08:00 Temperature 99.6 F Pulse Rate 84 Respiratory 18 Rate Blood Pressure 145/68 O2 Sat by Pulse 95 Oximetry - General Appearance General appearance: frail EENT: ATNC Respiratory: Present: Clear to Ascultation Cardiology: regular, S1S2 Gastrointestinal: normoactive bowel sounds, no tenderness, distended (soft) Musculoskeletal: other (no edema) Psychiatric: cooperative - Lab 12/14/16 05:00 12/14/16 05:00 Most recent lab results Calcium 9.0 mg/dL (8.4-10.2) 12/14/16 05:00 Phosphorus 5.80 mg/dL (2.5-4.5) H 12/07/16 15:29
--- NOTE | 2016-12-15 16:51 | Hem/Onc Consultation ---
History of Present Illness - Reason for Consult Consult date: 12/15/16 anemia - History of Present Illness Mr Mayo is a 61 yom for whom hematology is consulted regarding anemia. He has HIV/AIDS CD4 295, ESRD on HD, cirrhosis (likely 2/2 viral hepatitis), COPD. He was admitted from dialysis due to anemia despite EPO therapy. He reports a history of melena. On admission, he was evaluated by GI. He had an EGD that revealed esophagitis as well as an AVM that was treated with cautery. He states that his melena has resolved but his anemia persists. He endorses generalized weakness and dyspnea on exertion. He has cravings for ice. He has received multiple transfusions in the past, does not know if he has ever had IV iron in the past. He denies other abnormal bleeding. He has fevers and is on empiric vancomycin followed by ID. Past History Past Medical History: COPD, ESRD, HIV/AIDS, hypertension, other (Nicotine Dependence) Past Surgical History: Other (AV fistula) Social history: single, smoking. denies: alcohol abuse, prescription drug abuse , IV drug use Family history: diabetes, hypertension Medications and Allergies Allergies Allergy/AdvReac Type Severity Reaction Status Date / Time No Known Allergies Allergy Unverified 12/07/16 13:48 Home Medications Medication Instructions Recorded Confirmed Last Taken Type ALBUTEROL Inhaler [ProAir HFA 8.5 gram IH Q4-6H PRN MDD 4 12/07/16 12/07/16 Unknown History Inhaler] Albuterol Sulfate [Ventolin HFA] 8 gram IH PRN PRN 12/07/16 12/07/16 Unknown History AtorvaSTATin [Lipitor] 20 mg PO QHS 12/07/16 12/07/16 Unknown History Dapsone 100 mg PO DAILY 12/07/16 12/07/16 Unknown History Darunavir [Prezista] 800 mg PO DAILY 12/07/16 12/07/16 Unknown History Darunavir [Prezista] 800 mg PO DAILY 12/07/16 12/07/16 Unknown History Pnv with Ca#74/Iron/Folic Acid 1 tab PO DAILY 12/07/16 12/07/16 Unknown History [Vol-Plus Tablet] Ritonavir [Norvir] 100 mg PO DAILY 12/07/16 12/07/16 Unknown History Sevelamer Carbonate [Renvela] 800 mg PO TID 12/07/16 12/07/16 Unknown History Tenofovir [Viread] 300 mg PO DAILY 12/07/16 12/07/16 Unknown History Tiotropium [Spiriva] 1 puff IH DAILY 12/07/16 12/07/16 Unknown History amLODIPine [Norvasc] 10 mg PO DAILY 12/07/16 12/07/16 Unknown History lamiVUDine [Epivir Hbv] 75 mg PO DAILY 12/07/16 12/07/16 Unknown History Pantoprazole [Protonix TAB] 40 mg PO QDAY tablet 12/10/16 Unknown Rx Active Meds: Active Medications Acetaminophen (Tylenol) 650 mg PO Q4H PRN PRN Reason: Pain MILD(1-3)/Fever >100.5/YATES Last Admin: 12/15/16 00:02 Dose: 650 mg Albuterol (Proventil) 2.5 mg IH Q4HRT PRN PRN Reason: Wheezing Darunavir (Prezista) 800 mg PO QDAY [facility] Last Admin: 12/15/16 10:07 Dose: 800 mg Epoetin Sancho (Epogen) 20,000 unit IV NEHEMIAS [facility] Last Admin: 12/13/16 15:01 Dose: 20,000 unit Sodium Chloride (Nacl 0.9% 1000 Ml) 1,000 mls @ 50 mls/hr IV DIRECT [facility] Last Admin: 12/10/16 12:24 Dose: 50 mls/hr Sodium Chloride (Nacl 0.9%) 100 mls @ 999 mls/hr IV NEHEMIAS PRN PRN Reason: Hypotension Lamivudine (Epivir) 50 mg PO DAILY [facility] Last Admin: 12/14/16 11:02 Dose: 50 mg Pantoprazole Sodium (Protonix) 40 mg PO QDAY [facility] Last Admin: 12/15/16 10:07 Dose: 40 mg Ritonavir (Norvir) 100 mg PO QDAY [facility] Last Admin: 12/15/16 10:07 Dose: 100 mg Sodium Chloride (Deep Sea) 1 spray NS TID [facility] Last Admin: 12/14/16 20:00 Dose: 1 spray Tenofovir Disoproxil Fumarate (Viread) 300 mg PO QWEEK [facility] Last Admin: 12/13/16 17:48 Dose: Not Given Review of Systems Constitutional: fatigue Cardiovascular: no chest pain Respiratory: shortness of breath Gastrointestinal: no abdominal pain Musculoskeletal: no neck pain Neurological: no headaches Exam - Constitutional Vitals: Last Vital Signs Temp 99.8 F H 12/15/16 15:00 Pulse 86 12/15/16 15:00 Resp 18 12/15/16 15:00 BP 149/70 12/15/16 15:00 Pulse Ox 96 12/15/16 15:00 General appearance: cachectic - EENT Eyes: EOM intact ENT: hearing intact - Neck Neck: supple - Respiratory Respiratory effort: Positive: normal - Cardiovascular Rhythm: regular Results - Labs lab Results: hgb 8.5 plts 90 cd4 295 inr 1.66 Assessment and Plan 1. Anemia - multifactorial due to recent hx GIB, HIV, hepatitis, cirrhosis, renal failure , antibiotics - will check retic, iron panel, folate, vb12 for reversible causes of anemia - will check spep, sflc - transfuse prn 2. thrombocytopenia - multifactorial due to recent hx GIB, HIV, hepatitis, cirrhosis, renal failure , antibiotics - will check folate, vb12 for reverisible causes - transfuse prn
[2016-12-15 18:28] LABS: Basophils % (Auto) 0.3 % (0.0-1.8); Hematocrit 27.4 % (35.5-45.6); Mean Corpuscular HGB Conc 33 % (32-34); Mean Corpuscular Hemoglobin 30 pg (28-32); Mean Corpuscular Volume 91 fl (84-94); Platelet Count 115 K/mm3 (140-440); White Blood Count 8.5 K/mm3 (4.5-11.0)
[2016-12-15 18:35] LABS: Red Cell Distribution Width 20.7 % (13.2-15.2)
[2016-12-15 18:40] LABS: Albumin 2.8 g/dL (3.9-5); Albumin/Globulin Ratio 0.6 %; BUN/Creatinine Ratio 10.39; Bilirubin,Total 0.9 mg/dL (0.1-1.2); Calcium 8.8 mg/dL (8.4-10.2); Chloride 95.4 mmol/L (98-107); Potassium 4.1 mmol/L (3.6-5.0); Total Protein 7.8 g/dL (6.3-8.2)
[2016-12-15 18:51] LABS: Erythrocyte Sedimentation Rate > 140.0 mm/Hr (0-20)
[2016-12-15 19:00] LABS: Immature Retic Fraction 0.54; Reticulocyte % 1.96 % (0.78-2.58)
--- NOTE | 2016-12-16 08:57 | Hem/Onc Progress Note ---
Assessment and Plan Iron studies show anemia of chronic disease. Hemoglobin stable. Continue supportive care. Thrombocytopenia secondary to liver disease. stAble Subjective Date of service: 12/16/16 Interval history: Patient feels fair. Objective - Constitutional Vitals: Last Vital Signs Temp 97.6 F 12/16/16 07:00 Pulse 88 12/16/16 07:00 Resp 20 12/16/16 07:00 BP 115/61 12/16/16 07:00 Pulse Ox 97 12/16/16 07:00 Pain Intensity (0-10): denies any pain General appearance: no acute distress Performance status: 3-limited selfcare - Neck Neck: supple - Cardiovascular Rhythm: regular - Gastrointestinal General gastrointestinal: Present: soft - Labs Lab Results: Laboratory Results - last 24 hr 12/15/16 12/15/16 12/15/16 18:01 18:08 18:09 WBC 8.5 RBC 3.00 L Hgb 9.0 L Hct 27.4 L MCV 91 MCH 30 MCHC 33 RDW 20.7 H Plt Count 115 L Lymph % (Auto) 5.7 L [place] % (Auto) 5.3 Eos % (Auto) 0.0 Baso % (Auto) 0.3 Lymph # 0.5 L [place] # 0.5 Eos # 0.0 Baso # 0.0 Seg Neutrophils % 88.7 H Seg Neutrophils # 7.6 ESR > 140.0 Percent Retic 1.96 Immature Retic Fraction 0.54 Sodium Potassium Chloride Carbon Dioxide Anion Gap BUN Creatinine Estimated GFR BUN/Creatinine Ratio Glucose Calcium Iron TIBC Ferritin 1420.0 H Total Bilirubin AST ALT Alkaline Phosphatase Total Protein Albumin Albumin/Globulin Ratio Vitamin B12 Folate 12.01 12/15/16 12/15/16 18:10 18:10 WBC RBC Hgb Hct MCV MCH MCHC RDW Plt Count Lymph % (Auto) [place] % (Auto) Eos % (Auto) Baso % (Auto) Lymph # Gilliam # Eos # Baso # Seg Neutrophils % Seg Neutrophils # ESR Percent Retic Immature Retic Fraction Sodium 136 L Potassium 4.1 Chloride 95.4 L Carbon Dioxide 18 L Anion Gap 27 BUN 79 H Creatinine 7.6 H Estimated GFR 9 BUN/Creatinine Ratio 10.39 Glucose 109 H Calcium 8.8 Iron 13 L TIBC 119 L Ferritin Total Bilirubin 0.90 AST 39 ALT 38 Alkaline Phosphatase 119 Total Protein 7.8 Albumin 2.8 L Albumin/Globulin Ratio 0.6 Vitamin B12 673.1 Folate
[2016-12-16] MEDS: DEEP SEA NS SCH ×3 (09:36→20:15)
--- NOTE | 2016-12-16 09:59 | Progress Note ---
Assessment and Plan Assessment and plan: Fever Etiology is unknown. ID has started empiric Vancomycin. Follow-up blood and stool studies. Anemia of chronic disease Patient is status post PRBCs yesterday. Hemoglobin is stable. GI head plan to perform colonoscopy however patient refused. EGD revealed grade A esophagitis and solitary medium-sized AVM and gastric fundus. Also, irregular nodular mucosa throughout the duodenum that was friable and likely source of bleeding. CT abdomen 12/08/2016 CT pelvis without contrast: Nodular contour of the liver may be secondary to cirrhosis with portal hypertension. Clinical correlation is requested. Diminutive multicystic kidneys. Large volume of abdominal and pelvic ascites may be secondary to hepatic and/or renal finding as above. Combination of ascites and vascular coils compromises evaluation adrenal gland and much of the pancreas. Continue epogen as per nephrology, GI following. Patient however refused colonoscopy. Appreciate hematology input. Encephalopathy. Resolving. MRI reveals bilateral mastoiditis and no other acute findings. Neurology believes that the neurologic decompensation most likely is related to toxic metabolic causes and no acute PRODUCT MANAGER process. End stage renal disease on dialysis Nephrology following, continue HD Metabolic acidosis Due to ESRD supportive care, dialysis as per renal, continue home medication. Severe malnutrition encourage increased protein intake, Solderer Electronic consulted AIDS ID following. Continued retroviral meds. Follow-up CD4 data Tobacco abuse counseling performed Deconditioning Case management has arranged for SNF placement. DVT prophylaxis scds in in light of anemia Disposition. Mother reports that she was upset patient refused the GI workup/ endoscopy. I informed her that she would need to have a discussion with the patient to potentially persuade him to proceed with the procedure. Also, updated her with regards to plan of care. History Interval history: No new issues overnight. Hospitalist Physical - Constitutional Vitals: Temp Pulse Resp BP Pulse Ox 97.6 F 88 20 115/61 97 12/16/16 07:00 12/16/16 07:00 12/16/16 07:00 12/16/16 07:00 12/16/16 07:00 General appearance: Present: no acute distress - EENT Eyes: Present: PERRL, EOM intact ENT: hearing intact, clear oral mucosa, dentition normal - Neck Neck: Present: supple, normal ROM - Respiratory Respiratory effort: normal Respiratory: bilateral: CTA - Cardiovascular Rhythm: regular Heart Sounds: Present: S1 & S2. Absent: gallop, rub - Extremities Extremities: no ischemia, No edema, Full ROM - Abdominal General gastrointestinal: soft, non-tender, non-distended, normal bowel sounds - Integumentary Integumentary: Present: clear, warm, dry - Neurologic Neurologic: CNII-XII intact, moves all extremities Results - Labs CBC & Chem 7: 12/15/16 18:01 12/15/16 18:10 Labs: Laboratory Last Values WBC 8.5 K/mm3 (4.5-11.0) 12/15/16 18:01 RBC 3.00 M/mm3 (3.65-5.03) L 12/15/16 18:01 Hgb 9.0 gm/dl (11.8-15.2) L 12/15/16 18:01 Hct 27.4 % (35.5-45.6) L 12/15/16 18:01 MCV 91 fl (84-94) 12/15/16 18:01 MCH 30 pg (28-32) 12/15/16 18:01 MCHC 33 % (32-34) 12/15/16 18:01 RDW 20.7 % (13.2-15.2) H 12/15/16 18:01 Plt Count 115 K/mm3 (140-440) L 12/15/16 18:01 Lymph % (Auto) 5.7 % (13.4-35.0) L 12/15/16 18:01 [place] % (Auto) 5.3 % (0.0-7.3) 12/15/16 18:01 Eos % (Auto) 0.0 % (0.0-4.3) 12/15/16 18:01 Baso % (Auto) 0.3 % (0.0-1.8) 12/15/16 18:01 Lymph # 0.5 K/mm3 (1.2-5.4) L 12/15/16 18:01 [place] # 0.5 K/mm3 (0.0-0.8) 12/15/16 18:01 Eos # 0.0 K/mm3 (0.0-0.4) 12/15/16 18:01 Baso # 0.0 K/mm3 (0.0-0.1) 12/15/16 18:01 Seg Neutrophils % 88.7 % (40.0-70.0) H 12/15/16 18:01 Seg Neutrophils # 7.6 K/mm3 (1.8-7.7) 12/15/16 18:01 Abs Lymphs (Manual) 1077 cells/uL (850-3900) 12/11/16 18:31 ESR > 140.0 mm/Hr (0-20) 12/15/16 18:01 Percent Retic 1.96 % (0.78-2.58) 12/15/16 18:01 Immature Retic Fraction 0.54 12/15/16 18:01 PT 19.6 Sec. (12.2-14.9) H 12/13/16 04:46 INR 1.66 (0.87-1.13) H 12/13/16 04:46 APTT 40.3 Sec. (24.2-36.6) H 12/07/16 15:29 Sodium 136 mmol/L (137-145) L 12/15/16 18:10 Potassium 4.1 mmol/L (3.6-5.0) 12/15/16 18:10 Chloride 95.4 mmol/L (98-107) L 12/15/16 18:10 Carbon Dioxide 18 mmol/L (22-30) L 12/15/16 18:10 Anion Gap 27 mmol/L 12/15/16 18:10 BUN 79 mg/dL (9-20) H 12/15/16 18:10 Creatinine 7.6 mg/dL (0.8-1.5) H 12/15/16 18:10 Estimated GFR 9 ml/min 12/15/16 18:10 BUN/Creatinine Ratio 10.39 % 12/15/16 18:10 Glucose 109 mg/dL (75-100) H 12/15/16 18:10 Calcium 8.8 mg/dL (8.4-10.2) 12/15/16 18:10 Phosphorus 5.80 mg/dL (2.5-4.5) H 12/07/16 15:29 Iron 13 ug/dL (49-181) L 12/15/16 18:10 TIBC 119 mcg/dL (250-450) L 12/15/16 18:10 Ferritin 1420.0 ng/mL (13.0-400.0) H 12/15/16 18:09 Total Bilirubin 0.90 mg/dL (0.1-1.2) 12/15/16 18:10 AST 39 units/L (5-40) 12/15/16 18:10 ALT 38 units/L (7-56) 12/15/16 18:10 Alkaline Phosphatase 119 units/L (35-129) 12/15/16 18:10 Ammonia 26.0 umol/L (25-60) 12/11/16 14:09 Total Protein 7.8 g/dL (6.3-8.2) 12/15/16 18:10 Albumin 2.8 g/dL (3.9-5) L 12/15/16 18:10 Albumin/Globulin Ratio 0.6 % 12/15/16 18:10 Vitamin B12 673.1 pg/mL (211-911) 12/15/16 18:10 Folate 12.01 ng/mL (7.3-26.0) 12/15/16 18:08 TSH 2.230 mlU/mL (0.270-4.200) 12/11/16 14:09 Lymph Enumerat CD4/CD8 0.56 (0.86-5.00) L 12/11/16 18:31 % CD3 Cells 80 % (57-85) 12/11/16 18:31 Absolute CD3 Count 857 cells/uL (840-3060) 12/11/16 18:31 % CD4 Cells 28 % (30-61) L 12/11/16 18:31 Absolute CD4 Count 295 cells/uL (490-1740) L 12/11/16 18:31 % CD8 Cells 50 % (12-42) H 12/11/16 18:31 Absolute CD8 Count 530 cells/uL (180-1170) 12/11/16 18:31 % CD19 Cells 11 % (6-29) 12/11/16 18:31 Absolute CD19 Count 118 cells/uL (110-660) 12/11/16 18:31 Hep Bs Antigen Reactive (Negative) 12/10/16 04:55 Hep B Core Total Ab Nonreactive (Nonreactive) 12/10/16 04:55 Hepatitis C Antibody Reactive (NonReactive) A 12/10/16 04:55 Blood Type A POSITIVE 12/12/16 11:03 Antibody Screen TNR 07/27/17 11:03 VLADIMIR Antibody Screen Negative 12/12/16 11:03 Crossmatch See Detail 12/12/16 11:03
--- NOTE | 2016-12-16 10:48 | Progress Note ---
Assessment and Plan Assessment * End-stage renal disease * Fever * Encephalopathy * HIV/AIDS * Hep B/C cirrhosis * Anemia secondary to end-stage renal disease vs other Plan: * Continue HD MWF * UF as tolerated * Consultants' recommendations reviewed * Abx per ID * Dose medications for renal function Subjective Date of service: 12/16/16 Principal diagnosis: Cirrhosis, Anemia Interval history: No acute events overnight Objective - Vital Signs Vital signs: Vital Signs - 12hr 12/16/16 12/16/16 00:00 07:00 Temperature 99.3 F 97.6 F Pulse Rate 84 88 Respiratory 20 20 Rate Blood Pressure 143/76 115/61 O2 Sat by Pulse 96 97 Oximetry - General Appearance General appearance: well-developed, frail EENT: ATNC Respiratory: Present: Clear to Ascultation Cardiology: regular, S1S2 Gastrointestinal: distended Integumentary: no rash Musculoskeletal: other (no edema) Psychiatric: cooperative - Lab 12/15/16 18:01 12/15/16 18:10 Most recent lab results Calcium 8.8 mg/dL (8.4-10.2) 12/15/16 18:10 Phosphorus 5.80 mg/dL (2.5-4.5) H 12/07/16 15:29
--- NOTE | 2016-12-16 15:07 | Progress Note ---
Assessment and Plan - Patient Problems (1) Fever Current Visit: Yes Status: Acute Qualifiers: Fever type: unspecified Encounter type: E Qualified Code(s): R50.9 - Fever, unspecified Plan to address problem: Patient received a single dose of empiric Vancomycin IV. Blood, urine and stool studies are negative. Chest radiograph shows no evidence of pneumonia. Continue to monitor clinically off antibiotics. (2) AIDS Current Visit: Yes Status: Chronic Plan to address problem: Continue HAART. PC2=690. Cryptococcal antigen is negative. No expectation of OIs. I will sign off. Please call again if there are additional questions or concerns. Subjective Date of service: 12/16/16 Principal diagnosis: Cirrhosis, Anemia Interval history: Febrile > 48 hours ago. Now afebrile. Otherwise stable. Objective - Constitutional Vitals: Vital Signs Temp Pulse Resp BP Pulse Ox 97.6 F 90 18 113/60 97 12/16/16 11:50 12/16/16 14:30 12/16/16 11:50 12/16/16 14:30 12/16/16 07:00 Temperature -Last 24 Hours Temperature 97.6 F Temperature 97.6 F Temperature 99.3 F General appearance: Present: no acute distress - Respiratory Respiratory effort: normal Respiratory: bilateral: CTA - Cardiovascular Rhythm: regular Extremity abnormal: edema - Gastrointestinal General gastrointestinal: Present: soft, non-distended - Labs CBC & Chem 7: 12/15/16 18:01 12/15/16 18:10 Labs: Abnormal lab results 12/15/16 12/15/16 12/15/16 Range/Units 18:01 18:09 18:10 RBC 3.00 L (3.65-5.03) M/mm3 Hgb 9.0 L (11.8-15.2) gm/dl Hct 27.4 L (35.5-45.6) % RDW 20.7 H (13.2-15.2) % Plt Count 115 L (140-440) K/mm3 Lymph % (Auto) 5.7 L (13.4-35.0) % Lymph # 0.5 L (1.2-5.4) K/mm3 Seg Neutrophils % 88.7 H (40.0-70.0) % Sodium 136 L (137-145) mmol/L Chloride 95.4 L (98-107) mmol/L Carbon Dioxide 18 L (22-30) mmol/L BUN 79 H (9-20) mg/dL Creatinine 7.6 H (0.8-1.5) mg/dL Glucose 109 H (75-100) mg/dL Iron 13 L (49-181) ug/dL TIBC 119 L (250-450) mcg/dL Ferritin 1420.0 H (13.0-400.0) ng/mL Albumin 2.8 L (3.9-5) g/dL Microbiology 12/14/16 04:22 Stool Stool Culture - Final 12/14/16 04:22 Stool C. difficile DNA Amplification - Final 12/14/16 04:22 Stool Stool for WBCs - Final NEGATIVE 12/13/16 22:47 Peripheral/Venous Blood Culture - Preliminary NO GROWTH AFTER 48 HOURS 12/13/16 22:47 Peripheral/Venous Blood Culture - Preliminary NO GROWTH AFTER 48 HOURS 12/11/16 14:08 Serum Cryptococcal Antigen - Final - Imaging and cardiology Chest x-ray: report reviewed (pulmonary venous congestion)
[2016-12-16] MEDS: PROTONIX PO SCH (16:58)
[2016-12-16] MEDS: PREZISTA PO SCH (16:58)
[2016-12-16] MEDS: NORVIR PO SCH (16:59)
[2016-12-16] MEDS: EPIVIR PO SCH ×2 (18:26)
[2016-12-17] MEDS: TYLENOL PO PRN ×2 (01:28→09:40)
[2016-12-17 05:45] LABS: Basophils % (Auto) 0.2 % (0.0-1.8); Hematocrit 27.8 % (35.5-45.6); Hemoglobin 9.2 gm/dl (11.8-15.2); Mean Corpuscular HGB Conc 33 % (32-34); Mean Corpuscular Hemoglobin 30 pg (28-32); Mean Corpuscular Volume 91 fl (84-94); Platelet Count 102 K/mm3 (140-440); Red Blood Count 3.07 M/mm3 (3.65-5.03)
[2016-12-17 06:02] LABS: Chloride 96.8 mmol/L (98-107); Potassium 3.5 mmol/L (3.6-5.0)
[2016-12-17] MEDS: DEEP SEA NS SCH ×3 (08:53→20:29)
[2016-12-17] MEDS: NORVIR PO SCH (09:22)
[2016-12-17] MEDS: PROTONIX PO SCH (09:22)
[2016-12-17] MEDS: PREZISTA PO SCH (09:22)
--- NOTE | 2016-12-17 12:34 | Progress Note ---
Assessment and Plan Assessment * End-stage renal disease * Fever * Encephalopathy * HIV/AIDS * Hep B/C cirrhosis * Anemia secondary to end-stage renal disease vs other Plan: * Continue HD MWF * UF as tolerated * Consultants' recommendations reviewed * Abx per ID * Dose medications for renal function Subjective Date of service: 12/17/16 Principal diagnosis: Cirrhosis, Anemia Interval history: Patient has no complaint today. Objective - Vital Signs Vital signs: Vital Signs - 12hr 12/17/16 07:00 Temperature 100.1 F H Pulse Rate 87 Respiratory 20 Rate Blood Pressure 104/58 - General Appearance General appearance: well-developed, cachectic, frail EENT: ATNC Respiratory: Present: Clear to Ascultation Cardiology: regular, S1S2 Gastrointestinal: distended (soft) Musculoskeletal: other (no edema) Psychiatric: cooperative - Lab 12/17/16 04:45 12/17/16 04:45 Most recent lab results Calcium 9.0 mg/dL (8.4-10.2) 12/17/16 04:45 Phosphorus 5.80 mg/dL (2.5-4.5) H 12/07/16 15:29
--- NOTE | 2016-12-17 13:16 | Progress Note ---
Assessment and Plan Assessment and plan: Anemia of chronic disease -Hematology oncology consult appreciated -Continue to treat the underlying cause -On Epogen - GI consulted for colonoscopy, patient initially refused but now agreed Toxic metabolic encephalopathy -Supportive care, improving -Neurology consult appreciated End-stage renal disease on hemodialysis -Nephrology is following, continue hemodialysis as scheduled AIDS - continue his HAART Severe malnutrition -Nutrition consult appreciated -Increased protein intake Fever -Blood culture is negative, stool culture is negative -Likely due to AIDS DVT prophylaxis - SCDs because of anemia Disposition - Continue inpatient care History Interval history: Patient was seen and evaluated this morning, patient has 2 episodes of fever in the last 24 hours, patient has diarrhea, mild abdominal pain Hospitalist Physical - Physical exam Narrative exam: Not in cardiopulmonary distress. The patient is cachectic. Vital signs as documented. Head exam is unremarkable. No scleral icterus . Neck is without jugular venous distension, thyromegaly, or carotid bruits. Lungs are clear to auscultation. Cardiac exam reveals regular rate and Rhythm. Abdominal exam reveals mild abdominal tenderness. Extremities are nonedematous and both femoral and pedal pulses are normal. 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 No focal weakness. - Constitutional Vitals: Temp Pulse Resp BP Pulse Ox 100.1 F H 87 20 104/58 97 12/17/16 07:00 12/17/16 07:00 12/17/16 07:00 12/17/16 07:00 12/16/16 23:00 General appearance: Present: no acute distress Results - Labs CBC & Chem 7: 12/17/16 04:45 12/17/16 04:45 Labs: Laboratory Last Values WBC 7.0 K/mm3 (4.5-11.0) 12/17/16 04:45 RBC 3.07 M/mm3 (3.65-5.03) L 12/17/16 04:45 Hgb 9.2 gm/dl (11.8-15.2) L 12/17/16 04:45 Hct 27.8 % (35.5-45.6) L 12/17/16 04:45 MCV 91 fl (84-94) 12/17/16 04:45 MCH 30 pg (28-32) 12/17/16 04:45 MCHC 33 % (32-34) 12/17/16 04:45 RDW 20.0 % (13.2-15.2) H 12/17/16 04:45 Plt Count 102 K/mm3 (140-440) L 12/17/16 04:45 Lymph % (Auto) 5.5 % (13.4-35.0) L 12/17/16 04:45 [place] % (Auto) 10.4 % (0.0-7.3) H 12/17/16 04:45 Eos % (Auto) 0.0 % (0.0-4.3) 12/17/16 04:45 Baso % (Auto) 0.2 % (0.0-1.8) 12/17/16 04:45 Lymph # 0.4 K/mm3 (1.2-5.4) L 12/17/16 04:45 [place] # 0.7 K/mm3 (0.0-0.8) 12/17/16 04:45 Eos # 0.0 K/mm3 (0.0-0.4) 12/17/16 04:45 Baso # 0.0 K/mm3 (0.0-0.1) 12/17/16 04:45 Seg Neutrophils % 83.9 % (40.0-70.0) H 12/17/16 04:45 Seg Neutrophils # 5.8 K/mm3 (1.8-7.7) 12/17/16 04:45 Abs Lymphs (Manual) 1077 cells/uL (850-3900) 12/11/16 18:31 ESR > 140.0 mm/Hr (0-20) 12/15/16 18:01 Percent Retic 1.96 % (0.78-2.58) 12/15/16 18:01 Immature Retic Fraction 0.54 12/15/16 18:01 PT 19.6 Sec. (12.2-14.9) H 12/13/16 04:46 INR 1.66 (0.87-1.13) H 12/13/16 04:46 APTT 40.3 Sec. (24.2-36.6) H 12/07/16 15:29 Sodium 139 mmol/L (137-145) 12/17/16 04:45 Potassium 3.5 mmol/L (3.6-5.0) L 12/17/16 04:45 Chloride 96.8 mmol/L (98-107) L 12/17/16 04:45 Carbon Dioxide 22 mmol/L (22-30) 12/17/16 04:45 Anion Gap 24 mmol/L 12/17/16 04:45 BUN 45 mg/dL (9-20) H 12/17/16 04:45 Creatinine 5.0 mg/dL (0.8-1.5) H 12/17/16 04:45 Estimated GFR 14 ml/min 12/17/16 04:45 BUN/Creatinine Ratio 9.00 % 12/17/16 04:45 Glucose 96 mg/dL (75-100) 12/17/16 04:45 Calcium 9.0 mg/dL (8.4-10.2) 12/17/16 04:45 Phosphorus 5.80 mg/dL (2.5-4.5) H 12/07/16 15:29 Iron 13 ug/dL (49-181) L 12/15/16 18:10 TIBC 119 mcg/dL (250-450) L 12/15/16 18:10 Ferritin 1420.0 ng/mL (13.0-400.0) H 12/15/16 18:09 Total Bilirubin 0.90 mg/dL (0.1-1.2) 12/15/16 18:10 AST 39 units/L (5-40) 12/15/16 18:10 ALT 38 units/L (7-56) 12/15/16 18:10 Alkaline Phosphatase 119 units/L (35-129) 12/15/16 18:10 Ammonia 26.0 umol/L (25-60) 12/11/16 14:09 Total Protein 7.8 g/dL (6.3-8.2) 12/15/16 18:10 Albumin 2.8 g/dL (3.9-5) L 12/15/16 18:10 Albumin/Globulin Ratio 0.6 % 12/15/16 18:10 Vitamin B12 673.1 pg/mL (211-911) 12/15/16 18:10 Folate 12.01 ng/mL (7.3-26.0) 12/15/16 18:08 TSH 2.230 mlU/mL (0.270-4.200) 12/11/16 14:09 Lymph Enumerat CD4/CD8 0.56 (0.86-5.00) L 12/11/16 18:31 % CD3 Cells 80 % (57-85) 12/11/16 18:31 Absolute CD3 Count 857 cells/uL (840-3060) 12/11/16 18:31 % CD4 Cells 28 % (30-61) L 12/11/16 18:31 Absolute CD4 Count 295 cells/uL (490-1740) L 12/11/16 18:31 % CD8 Cells 50 % (12-42) H 12/11/16 18:31 Absolute CD8 Count 530 cells/uL (180-1170) 12/11/16 18:31 % CD19 Cells 11 % (6-29) 12/11/16 18:31 Absolute CD19 Count 118 cells/uL (110-660) 12/11/16 18:31 Hep Bs Antigen Reactive (Negative) 12/10/16 04:55 Hep B Core Total Ab Nonreactive (Nonreactive) 12/10/16 04:55 Hepatitis C Antibody Reactive (NonReactive) A 12/10/16 04:55 Hepatitis C Genotype 1a 12/12/16 04:39 Blood Type A POSITIVE 12/12/16 11:03 Antibody Screen TNR 12/12/16 11:03 VLADIMIR Antibody Screen Negative 12/12/16 11:03 Crossmatch See Detail 12/12/16 11:03
[2016-12-17] MEDS: EPIVIR PO SCH ×2 (13:26→13:39)
[2016-12-18 06:07] LABS: Basophils % (Auto) 0.2 % (0.0-1.8); Eosinophils % (Auto) 0.5 % (0.0-4.3); Hematocrit 26.3 % (35.5-45.6); Hemoglobin 8.9 gm/dl (11.8-15.2); Mean Corpuscular HGB Conc 34 % (32-34); Mean Corpuscular Hemoglobin 30 pg (28-32); Mean Corpuscular Volume 90 fl (84-94); Platelet Count 104 K/mm3 (140-440); Red Blood Count 2.92 M/mm3 (3.65-5.03); White Blood Count 5.4 K/mm3 (4.5-11.0)
[2016-12-18 06:10] LABS: Red Cell Distribution Width 20.2 % (13.2-15.2)
[2016-12-18 06:15] LABS: BUN/Creatinine Ratio 12.24; Chloride 92.2 mmol/L (98-107); Potassium 3.6 mmol/L (3.6-5.0)
[2016-12-18] MEDS: DEEP SEA NS SCH ×2 (07:51→20:17)
--- NOTE | 2016-12-18 10:05 | Discharge Summary ---
Providers - Providers Date of Admission: 12/07/16 16:05 Date of discharge: 12/18/16 Attending physician: JOSÉ MIGUEL ALLEN MD 12/07/16 20:42 Consult to Physician [CONS] Routine Consulting Provider: CRUZ ABRAHAM I Reason For Exam: ESRD Place consult to:: nephrology Notified:: answering services Phone number called:: [phone] Was contact made?: Yes If yes, spoke with:: Amita Time called:: 10:12 Comment:: PAT NOTIFIED 12/09/16 10:37 Occupational Therapy Evaluate and Treat [CONS] Routine Comment: Reason For Exam: help with ADLs, placement Physical Therapy Evaluation and Treat [CONS] Routine Comment: Reason For Exam: lack of mobility, placement 12/10/16 16:05 Consult to Physician [CONS] Routine Consulting Provider: MILKA SERVIN Reason For Exam: ESRD HD Place consult to:: Dr. Servin Notified:: yes Phone number called:: [phone] Was contact made?: Yes If yes, spoke with:: Jeanie Moncada Time called:: 16:05 Comment:: Will see pt. today 12/11/16 07:27 Consult to Physician [CONS] Routine Consulting Provider: JESSICA ABREU Reason For Exam: AIDS, AMS Place consult to:: dr. glen morales Notified:: cell Phone number called:: [phone] Was contact made?: Yes If yes, spoke with:: dr. glen morales Time called:: 08:32 12/11/16 07:28 Consult to Physician [CONS] Routine Consulting Provider: SHAMEKA SOTO Reason For Exam: AIDS, AMS Place consult to:: dr. soto Notified:: cell Phone number called:: [phone] Was contact made?: Yes If yes, spoke with:: dr. soto Time called:: 08:39 12/15/16 10:56 Consult to Physician [CONS] Routine Consulting Provider: YANETH PRO Reason For Exam: anemia Place consult to:: dr. pro/ Notified:: answering service Phone number called:: Was contact made?: Yes If yes, spoke with:: rex Time called:: 14:28 12/16/16 17:27 Consult to Dietitian/Nutrition [CONS] Routine Physician Instructions: Reason For Exam: Reason for Consult: Poor oral intake 12/17/16 18:11 Consult to Physician [CONS] Routine Consulting Provider: [facility] Reason For Exam: Anemia, chronic diarrhea Place consult to:: GI/ elvira jackson Notified:: office Phone number called:: [phone] Was contact made?: Yes If yes, spoke with:: zbigniew Time called:: 08:15 Comment:: patient agreed for colonoscopy, he refused previously 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 Pt states that he has been feeling weak and tired for the past 2 weeks, with worsening symptoms over the past 2 days. Pt states that he went to dialysis today but was told he could not have dialysis due to low RBC count. Pt denies fever, chills, CP, Palpitations, NVD, Syncope, Trauma, productive cough, or recent ill contacts. Patient is admitted for symptomatic anemia, and this, and decision and is on hemodialysis. He was transfused and he was treated with antibiotics, he is checking her medications were continued. ID and GI consult appreciated. GI was plan to do colonoscopy because the patient refused. GI agreed to do his colonoscopy as an outpatient. Patient was stable at the time of discharge. He was transferred to SNF. Patient's medications were reviewed and updated to the discharge. Patient's questions and concerns were addressed at the bedside. Disposition: [id number]/[id number] SNF [facility] Time spent for discharge: 31 minutes - Discharge Diagnoses (1) Anemia in chronic illness Status: Acute (2) Blood loss anemia Status: Acute (3) Fever Status: Acute Qualifiers: Fever type: unspecified Encounter type: E Qualified Code(s): R50.9 - Fever, unspecified (4) Hepatitis B Status: Acute Qualifiers: Viral hepatitis chronicity: V Hepatic coma status: H Hepatitis delta agent presence: H (5) Hepatitis C Status: Acute Qualifiers: Viral hepatitis chronicity: V Hepatic coma status: H (6) Severe malnutrition Status: Acute (7) AIDS Status: Chronic (8) End stage renal disease on dialysis Status: Chronic Core Measure Documentation - Palliative Care Palliative Care/ Comfort Measures: Not Applicable - Core Measures Any of the following diagnoses?: none Exam - Physical Exam Narrative exam: Not in cardiopulmonary distress. The patient is cachectic. Vital signs as documented. Head exam is unremarkable. No scleral icterus . Neck is without jugular venous distension, thyromegaly, or carotid bruits. Lungs are clear to auscultation. Cardiac exam reveals regular rate and Rhythm. Abdominal exam reveals mild abdominal tenderness. Extremities are nonedematous and both femoral and pedal pulses are normal. 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 No focal weakness. - Constitutional Vitals: Temp Pulse Resp BP Pulse Ox 99.9 F H 86 18 118/68 96 12/18/16 08:00 12/18/16 08:00 12/18/16 08:00 12/18/16 08:00 12/18/16 08:00 Plan Activity: no restrictions Weight Bearing Status: Full Weight Bearing Diet: renal Follow up with: PRIMARY MD BLAZE [Primary Care Provider] - 3-5 Days
--- NOTE | 2016-12-18 10:46 | Progress Note ---
Assessment and Plan Assessment * End-stage renal disease * Fever * Encephalopathy * HIV/AIDS * Hep B/C cirrhosis * Anemia secondary to end-stage renal disease vs other Plan: * Continue HD MWF * UF as tolerated * Consultants' recommendations reviewed * Abx per ID * Dose medications for renal function * dc plans noted Subjective Date of service: 12/18/16 Principal diagnosis: Cirrhosis, Anemia Interval history: resting in bed today Objective - Exam Narrative Exam: General appearance: well-developed, cachectic, frail EENT: ATNC Respiratory: Present: Clear to Ascultation Cardiology: regular, S1S2 Gastrointestinal: distended (soft) Musculoskeletal: other (no edema) Psychiatric: cooperative - Vital Signs Vital signs: Vital Signs - 12hr 12/17/16 12/18/16 23:00 08:00 Temperature 99.0 F 99.9 F H Pulse Rate 89 86 Respiratory 14 18 Rate Blood Pressure 100/56 118/68 O2 Sat by Pulse 95 96 Oximetry - Lab 12/18/16 04:42 12/18/16 04:42 Most recent lab results Calcium 9.0 mg/dL (8.4-10.2) 12/18/16 04:42 Phosphorus 5.80 mg/dL (2.5-4.5) H 12/07/16 15:29
[2016-12-18] MEDS: PROTONIX PO SCH (11:22)
[2016-12-18] MEDS: PREZISTA PO SCH (11:23)
[2016-12-18] MEDS: NORVIR PO SCH (11:23)
[2016-12-18] MEDS: EPIVIR PO SCH (11:23)
[2016-12-18 20:57] LABS: Albumin 2.7 g/dL (3.8-4.8); Gamma Globulin 2.1 g/dL (0.8-1.7)
[2016-12-18 21:18] VITALS: BP 108/69
== END 2016-12-18 20:55 | DRG 987 ==
LOC: ED 13:26 → 3A 16:05
PROVIDERS: ADMIT Internal Medicine; ATTEND Internal Medicine
PROC: 30233N1 Transfusion of Nonautologous Red Blood Cells into Peripheral Vein, Percutaneous Approach (ICD-10-PCS; principal; 2016-12-07)
PROC: 0DB98ZX Excision of Duodenum, Via Natural or Artificial Opening Endoscopic, Diagnostic (ICD-10-PCS; 2016-12-10)
PROC: 0D5 Gastrointestinal System, Destruction (ICD-10-PCS; 2016-12-10)
PROC: 5A1D60Z (ICD-10-PCS; 2016-12-13)
DX: Q27.33 Arteriovenous malformation of digestive system vessel (principal); E43 Unspecified severe protein-calorie malnutrition; N18.6 End stage renal disease; B20 Human immunodeficiency virus [HIV] disease; G92 Toxic encephalopathy; B17.10 Acute hepatitis C without hepatic coma; E87.2 Acidosis; D62 Acute posthemorrhagic anemia; Z68.1 Body mass index [BMI] 19.9 or less, adult; I12.0 Hypertensive chronic kidney disease with stage 5 chronic kidney disease or end stage renal disease; D68.9 Coagulation defect, unspecified; N25.81 Secondary hyperparathyroidism of renal origin; B16.9 Acute hepatitis B without delta-agent and without hepatic coma; K74.60 Unspecified cirrhosis of liver; K29.80 Duodenitis without bleeding; D69.6 Thrombocytopenia, unspecified; D63.8 Anemia in other chronic diseases classified elsewhere; D63.1 Anemia in chronic kidney disease; J44.9 Chronic obstructive pulmonary disease, unspecified; F17.200 Nicotine dependence, unspecified, uncomplicated; K21.0 Gastro-esophageal reflux disease with esophagitis; K44.9 Diaphragmatic hernia without obstruction or gangrene; E83.39 Other disorders of phosphorus metabolism; H70.93 Unspecified mastoiditis, bilateral; E11.22 Type 2 diabetes mellitus with diabetic chronic kidney disease; Z82.49 Family history of ischemic heart disease and other diseases of the circulatory system; Z83.3 Family history of diabetes mellitus; Z71.6 Tobacco abuse counseling
CPT/HCPCS: 36415; 70551; 71010; 74176; 80048; 80053; 82024; 82140; 82607; 82728; 82747; 83550; 84100; 84165; 84443; 85007; 85014; 85018; 85025; 85027; 85045; 85610; 85652; 85730; 86403; 86705; 86706; 86803; 86850; 86900; 86901; 86920; 87040; 87045; 87493; 87497; 87517; 87902; 88305; 93005; 93010; G8978-GP; G8979-GP; G8987-GO; G8988-GO; G8989-GO; J0885; J3370; J7030; J7040; P9016

== ENCOUNTER 2016-12-26 13:30 | Inpatient (IN) | payer MEDICARE ==
--- NOTE | 2016-12-26 14:53 | Emergency Department Report ---
ED Chest Pain HPI - General Chief Complaint: Chest Pain Stated Complaint: CHEST PAIN Time Seen by Provider: 12/26/16 14:08 Source: patient, EMS Mode of arrival: Ambulatory Limitations: No Limitations - History of Present Illness Initial Comments: This is a 61-year-old Afro-[place]i male who presents to the emergency department via EMS from dialysis today secondary to chest pain and shortness of breath. He did not complete dialysis. Patient says he's been having a 3 to four-day history of this midsternal nonradiating chest pain and some shortness of breath. He presents with nausea and actively vomiting. He has history of COPD, HIV, hypertension, end-stage renal disease on dialysis Friday// Friday. 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 He did not take anything and did not receive anything for his current symptoms prior to presentation. No recent travel. Patient says he is a former smoker and former drug abuser but has not done this for a few months. - Related Data Home Medications Medication Instructions Recorded Confirmed Last Taken ALBUTEROL Inhaler [ProAir HFA 8.5 gram IH Q4-6H PRN MDD 4 12/07/16 12/26/1603/04 Inhaler] Albuterol Sulfate [Ventolin HFA] 8 gram IH PRN PRN 12/07/16 12/26/16 12/26/16 AtorvaSTATin [Lipitor] 20 mg PO QHS 12/07/16 12/26/16 12/26/16 Dapsone 100 mg PO DAILY 12/07/16 12/26/16 12/26/16 Darunavir [Prezista] 800 mg PO DAILY 12/07/16 12/26/16 12/26/16 Pnv with Ca#74/Iron/Folic Acid 1 tab PO DAILY 12/07/16 12/26/16 12/26/16 [Vol-Plus Tablet] Ritonavir [Norvir] 100 mg PO DAILY 12/07/16 12/26/16 12/26/16 Sevelamer Carbonate [Renvela] 800 mg PO TID 12/07/16 12/26/16 12/26/16 Tenofovir [Viread] 300 mg PO DAILY 07/12/26/16 12/26/16 Tiotropium [Spiriva] 1 puff IH DAILY 12/07/16 12/26/16 12/26/16 amLODIPine [Norvasc] 10 mg PO DAILY 12/07/16 12/26/16 12/26/16 lamiVUDine [Epivir Hbv] 75 mg PO DAILY 12/07/16 12/26/16 12/26/16 Previous Rx's Medication Instructions Recorded Last Taken Type Pantoprazole [Protonix TAB] 40 mg PO QDAY tablet 12/10/16 12/26/16 Rx Allergies Allergy/AdvReac Type Severity Reaction Status Date / Time No Known Allergies Allergy Unverified 12/07/16 13:48 Heart Score - HEART Score History: Moderately suspicious EKG: Non-specific Age: 45-65 Risk factors: 1-2 risk factors Troponin: > 3x normal limit HEART Score: 6 - Critical Actions Critical Actions: 4-6 pts:12-16.6% risk of adverse cardiac event. Should be admitted ED Review of Systems ROS: Stated complaint: CHEST PAIN Other details as noted in HPI Comment: All other systems reviewed and negative Constitutional: denies: chills, fever Eyes: denies: eye pain, eye discharge, vision change ENT: denies: ear pain, throat pain Respiratory: shortness of breath. denies: cough Cardiovascular: chest pain. denies: palpitations Gastrointestinal: nausea, vomiting Genitourinary: denies: urgency, dysuria Musculoskeletal: denies: back pain, joint swelling, arthralgia Skin: denies: rash, lesions Neurological: denies: headache, weakness, paresthesias ED Past Medical Hx - Past Medical History Previous Medical History?: Yes Hx Hypertension: Yes Hx Diabetes: No Hx Renal Disease: Yes Hx COPD: Yes Hx HIV: Yes - Surgical History Additional Surgical History: AV Graft right arm - Social History Smoking Status: Former Smoker Substance Use Type: None - Medications Home Medications: Home Medications Medication Instructions Recorded Confirmed Last Taken Type ALBUTEROL Inhaler [ProAir HFA 8.5 gram IH Q4-6H PRN MDD 4 12/07/16 12/26/1603/04 History Inhaler] Albuterol Sulfate [Ventolin HFA] 8 gram IH PRN PRN 12/07/16 12/26/16 12/26/16 History AtorvaSTATin [Lipitor] 20 mg PO QHS 12/07/16 12/26/16 12/26/16 History Dapsone 100 mg PO DAILY 12/07/16 12/26/16 12/26/16 History Darunavir [Prezista] 800 mg PO DAILY 12/07/16 12/26/16 12/26/16 History Pnv with Ca#74/Iron/Folic Acid 1 tab PO DAILY 12/07/16 12/26/16 12/26/16 History [Vol-Plus Tablet] Ritonavir [Norvir] 100 mg PO DAILY 12/07/16 12/26/16 12/26/16 History Sevelamer Carbonate [Renvela] 800 mg PO TID 12/07/16 12/26/16 12/26/16 History Tenofovir [Viread] 300 mg PO DAILY 12/07/16 12/26/16 12/26/16 History Tiotropium [Spiriva] 1 puff IH DAILY 12/07/16 12/26/16 12/26/16 History amLODIPine [Norvasc] 10 mg PO DAILY 12/07/16 12/26/16 12/26/16 History lamiVUDine [Epivir Hbv] 75 mg PO DAILY 12/07/16 12/26/16 12/26/16 History Pantoprazole [Protonix TAB] 40 mg PO QDAY tablet 12/10/16 12/26/16 12/26/16 Rx ED Physical Exam - General Limitations: No Limitations - Other Other exam information: GENERAL: The patient is well-developed well-nourished. Patient actively vomiting. HEENT: Normocephalic. Atraumatic. Extraocular motions are intact. Patient has moist mucous membranes. Pupils equal reactive to light bilaterally. NECK: Supple. Trachea is midline. CHEST/LUNGS: Clear to auscultation. There is no respiratory distress noted. Chest pain is not reproducible to palpation of chest wall. HEART/CARDIOVASCULAR: Regular. There is no tachycardia. There is no gallop rub or murmur. ABDOMEN: Abdomen is soft, nontender. Patient has normal bowel sounds. There is no abdominal distention. SKIN: Skin is warm and dry. NEURO: The patient is awake, alert, and oriented. The patient is cooperative. The patient has no focal neurologic deficits. The patient has normal speech. MUSCULOSKELETAL: There is no tenderness or deformity. There is no limitation range of motion. There is no evidence of acute injury. ED Course Vital Signs 12/26/16 12/26/16 13:56 14:10 Temperature 97.7 F 98.2 F Pulse Rate 88 90 Respiratory 36 H 24 Rate Blood Pressure 93/53 Blood Pressure 98/56 [Right] O2 Sat by Pulse 95 94 Oximetry ED Medical Decision Making - Lab Data Result diagrams: 12/26/16 14:48 12/26/16 14:48 - EKG Data -: EKG Interpreted by Me EKG shows normal: sinus rhythm (with PVCs), axis, intervals, QRS complexes, ST- T waves (nonspecific ST-T waves) Rate: normal - EKG Data When compared to previous EKG there are: previous EKG unavailable Interpretation: other (sinus rhythm with PVCs, nonspecific ST-T waves) - Radiology Data Radiology results: image reviewed interpreted by me: Chest x-ray shows some mild cardiomegaly and pulmonary vascular congestion with some pleural effusions but out throughout the lung field. - Medical Decision Making 61-year-old male presents with chest pain, nausea vomiting or shortness of breath for dialysis without the ability to complete dialysis. EKG does not show any signs of ST elevation MS. Chest x-ray appears consistent with some volume overload but no overt pleural effusions. Elevated d-dimer so VQ scan is currently being done but results are not yet listed. If positive, the admitting hospitalist will have to consider anticoagulation. Otherwise patient still will be admitted as he has not had a full cardiac workup including stress test any reasonable amount of time and he continues to have midsternal chest pain. He has been accepted for admission by the hospitalist, Dr. Krishnamurthy. - Differential Diagnosis MS, PE, CHF, Pneumonia Critical Care Time: No Critical care attestation.: If time is entered above; I have spent that time in minutes in the direct care of this critically ill patient, excluding procedure time. ED Disposition Clinical Impression: Symptomatic anemia, AIDS, Elevated troponin, End stage renal disease on dialysis Chest pain Qualifiers: Chest pain type: unspecified Qualified Code(s): R07.9 - Chest pain, unspecified Disposition: OP ADMIT IP TO THIS HOSP Is pt being admited?: Yes Condition: Stable Instructions: Chest Pain (ED) Time of Disposition: 20:04
[2016-12-26 15:24] LABS: Basophils % (Auto) 0.5 % (0.0-1.8); Eosinophils % (Auto) 0.2 % (0.0-4.3); Hematocrit 22.1 % (35.5-45.6); Hemoglobin 7.4 gm/dl (11.8-15.2); Mean Corpuscular HGB Conc 34 % (32-34); Mean Corpuscular Hemoglobin 28 pg (28-32); Mean Corpuscular Volume 84 fl (84-94); Platelet Count 169 K/mm3 (140-440); Red Blood Count 2.62 M/mm3 (3.65-5.03); White Blood Count 12.8 K/mm3 (4.5-11.0)
[2016-12-26 15:27] LABS: Red Cell Distribution Width 20.3 % (13.2-15.2)
[2016-12-26 15:40] LABS: Alanine Aminotransferase 12 units/L (7-56); Albumin 2.4 g/dL (3.9-5); Albumin/Globulin Ratio 0.5 %; Alkaline Phosphatase 133 units/L (35-129); Anion Gap 32 mmol/L; Calcium 7.6 mg/dL (8.4-10.2); Carbon Dioxide 17 mmol/L (22-30); Chloride 87.8 mmol/L (98-107); Glucose 54 mg/dL (75-100); Potassium 4.5 mmol/L (3.6-5.0); Sodium 132 mmol/L (137-145); Total Protein 7.1 g/dL (6.3-8.2)
[2016-12-26 15:48] LABS: BUN/Creatinine Ratio 11.52; Blood Urea Nitrogen 121 mg/dL (9-20)
--- NOTE | 2016-12-26 20:25 | Nuclear Medicine Report ---
FINAL REPORT EXAM: NM LUNG SCAN PERF/VENT HISTORY: SOB, elevated dimer TECHNIQUE: Ventilation-perfusion scan Ventilation study performed with the millicuries of [id number] The perfusion study was performed following intravenous administration of 5 millicuries technetium 99 M MAA PRIORS: Correlated with chest radiograph of same date FINDINGS: There is homogeneous distribution of the radiotracer on ventilation exam. Minimal air trapping noted within the right lower lobe on delayed images there is homogeneous distribution the radiotracer on perfusion study. No areas of ventilation-perfusion mismatch are identified. IMPRESSION: Negative. No scintigraphic evidence for pulmonary embolus Minimal air trapping noted in the right lower lobe on ventilation exam
[2016-12-26] MEDS ORDERED: PROAIR IH PRN ×2 (21:17)
--- NOTE | 2016-12-26 21:17 | History and Physical Report ---
History of Present Illness Date of examination: 12/26/16 Date of admission: 12/26/16 Chief complaint: Chest pain off and on for 3 days History of present illness: - History of Present Illness Initial Comments: This is a 61-year-old Afro-[place] male who presents to the emergency department via EMS from dialysis today secondary to chest pain and shortness of breath. He did not complete dialysis. Patient says he's been having a 3 to four-day history of this midsternal nonradiating chest pain and some shortness of breath. He presents with nausea and actively vomiting. He has history of COPD, HIV, hypertension, end-stage renal disease on dialysis Friday// Friday. 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 He did not take anything and did not receive anything for his current symptoms prior to presentation. No recent travel. Patient says he is a former smoker and former drug abuser but has not done this for a few months. Heart Score - HEART Score History: Moderately suspicious EKG: Non-specific Age: 45-65 Risk factors: 1-2 risk factors Troponin: > 3x normal limit HEART Score: 6 - Critical Actions Critical Actions: 4-6 pts:12-16.6% risk of adverse cardiac event. Should be admitted - Past Medical History Previous Medical History?: Yes Hx Hypertension: Yes Hx Renal Disease: Yes Hx COPD: Yes Hx HIV: Yes - Surgical History Additional Surgical History: AV Graft right arm - Social History Smoking Status: Former Smoker Substance Use Type: None - Medications Home Medications: Home Medications Medication Instructions Recorded Confirmed Last Taken Type ALBUTEROL Inhaler [ProAir HFA 8.5 gram IH Q4-6H PRN MDD 4 12/07/16 12/26/1603/04 History Inhaler] Albuterol Sulfate [Ventolin HFA] 8 gram IH PRN PRN 12/07/16 12/26/16 12/26/16 History AtorvaSTATin [Lipitor] 20 mg PO QHS 12/07/16 12/26/16 12/26/16 History Dapsone 100 mg PO DAILY 12/07/16 12/26/16 12/26/16 History Darunavir [Prezista] 800 mg PO DAILY 12/07/16 12/26/16 12/26/16 History Pnv with Ca#74/Iron/Folic Acid 1 tab PO DAILY 12/07/16 12/26/16 12/26/16 History [Vol-Plus Tablet] Ritonavir [Norvir] 100 mg PO DAILY 12/07/16 12/26/16 12/26/16 History Sevelamer Carbonate [Renvela] 800 mg PO TID 12/07/16 12/26/16 12/26/16 History Tenofovir [Viread] 300 mg PO DAILY 12/07/16 12/26/16 12/26/16 History Tiotropium [Spiriva] 1 puff IH DAILY 12/07/16 12/26/16 12/26/16 History amLODIPine [Norvasc] 10 mg PO DAILY 12/07/16 12/26/16 12/26/16 History lamiVUDine [Epivir Hbv] 75 mg PO DAILY 12/07/16 12/26/16 12/26/16 History Pantoprazole [Protonix TAB] 40 mg PO QDAY tablet 12/10/16 12/26/16 12/26/16 Rx ROS: Stated complaint: CHEST PAIN Other details as noted in HPI Comment: All other systems reviewed and negative Constitutional: denies: chills, fever Eyes: denies: eye pain, eye discharge, vision change ENT: denies: ear pain, throat pain Respiratory: shortness of breath. denies: cough Cardiovascular: chest pain. denies: palpitations Gastrointestinal: nausea, vomiting Genitourinary: denies: urgency, dysuria Musculoskeletal: denies: back pain, joint swelling, arthralgia Skin: denies: rash, lesions Neurological: denies: headache, weakness, paresthesias Medications and Allergies Allergies Allergy/AdvReac Type Severity Reaction Status Date / Time No Known Allergies Allergy Unverified 12/07/16 13:48 Home Medications Medication Instructions Recorded Confirmed Last Taken Type ALBUTEROL Inhaler [ProAir HFA 8.5 gram IH Q4-6H PRN MDD 4 12/07/16 12/26/1603/04 History Inhaler] Albuterol Sulfate [Ventolin HFA] 8 gram IH PRN PRN 12/07/16 12/26/16 12/26/16 History AtorvaSTATin [Lipitor] 20 mg PO QHS 07/12/26/16 12/26/16 History Dapsone 100 mg PO DAILY 12/07/16 12/26/16 12/26/16 History Darunavir [Prezista] 800 mg PO DAILY 12/07/16 12/26/16 12/26/16 History Pnv with Ca#74/Iron/Folic Acid 1 tab PO DAILY 12/07/16 12/26/16 12/26/16 History [Vol-Plus Tablet] Ritonavir [Norvir] 100 mg PO DAILY 12/07/16 12/26/16 12/26/16 History Sevelamer Carbonate [Renvela] 800 mg PO TID 12/07/16 12/26/16 12/26/16 History Tenofovir [Viread] 300 mg PO DAILY 12/07/16 12/26/16 12/26/16 History Tiotropium [Spiriva] 1 puff IH DAILY 12/07/16 12/26/16 12/26/16 History amLODIPine [Norvasc] 10 mg PO DAILY 12/07/16 12/26/16 12/26/16 History lamiVUDine [Epivir Hbv] 75 mg PO DAILY 12/07/16 12/26/16 12/26/16 History Pantoprazole [Protonix TAB] 40 mg PO QDAY tablet 12/10/16 12/26/16 12/26/16 Rx Exam - Physical Exam Narrative exam: Lying comfortably - Constitutional Vitals: Temp Pulse Resp BP Pulse Ox 98.2 F 89 24 103/55 99 12/26/16 19:05 12/26/16 20:40 12/26/16 20:53 12/26/16 20:40 12/26/16 20:53 General appearance: Present: no acute distress, well-nourished - EENT Eyes: Present: PERRL ENT: hearing intact, clear oral mucosa - Neck Neck: Present: supple, normal ROM - Respiratory Respiratory effort: normal Respiratory: bilateral: CTA - Cardiovascular Heart rate: 88 Rhythm: regular Heart Sounds: Present: S1 & S2. Absent: rub, click - Extremities Extremities: pulses intact, pulses symmetrical, No edema Peripheral Pulses: within normal limits - Abdominal General gastrointestinal: Present: soft, non-tender, non-distended, normal bowel sounds Male genitourinary: Present: normal - Rectal Rectal Exam: deferred - Integumentary Integumentary: Present: clear, warm, dry - Musculoskeletal Musculoskeletal: gait normal, strength equal bilaterally - Psychiatric Psychiatric: appropriate mood/affect, intact judgment & insight - Neurologic Neurologic: CNII-XII intact, moves all extremities - Allied Health Allied health notes reviewed: nursing, case management Results - Labs CBC & Chem 7: 12/26/16 14:48 12/27/16 03:49 Labs: Laboratory Last Values WBC 12.8 K/mm3 (4.5-11.0) H 12/26/16 14:48 RBC 2.62 M/mm3 (3.65-5.03) L 12/26/16 14:48 Hgb 7.4 gm/dl (11.8-15.2) L 12/26/16 14:48 Hct 22.1 % (35.5-45.6) L 12/26/16 14:48 MCV 84 fl (84-94) 12/26/16 14:48 MCH 28 pg (28-32) 12/26/16 14:48 MCHC 34 % (32-34) 12/26/16 14:48 RDW 20.3 % (13.2-15.2) H 12/26/16 14:48 Plt Count 169 K/mm3 (140-440) 12/26/16 14:48 Lymph % (Auto) 3.3 % (13.4-35.0) L 12/26/16 14:48 [place] % (Auto) 6.2 % (0.0-7.3) 12/26/16 14:48 Eos % (Auto) 0.2 % (0.0-4.3) 12/26/16 14:48 Baso % (Auto) 0.5 % (0.0-1.8) 12/26/16 14:48 Lymph # 0.4 K/mm3 (1.2-5.4) L 12/26/16 14:48 [place] # 0.8 K/mm3 (0.0-0.8) 12/26/16 14:48 Eos # 0.0 K/mm3 (0.0-0.4) 12/26/16 14:48 Baso # 0.1 K/mm3 (0.0-0.1) 12/26/16 14:48 Seg Neutrophils % 89.8 % (40.0-70.0) H 12/26/16 14:48 Seg Neutrophils # 11.5 K/mm3 (1.8-7.7) H 12/26/16 14:48 D-Dimer 7009.85 ng/mlDDU (0-234) H 12/26/16 14:48 Sodium 132 mmol/L (137-145) L 12/26/16 14:48 Potassium 4.5 mmol/L (3.6-5.0) 12/26/16 14:48 Chloride 87.8 mmol/L (98-107) L 12/26/16 14:48 Carbon Dioxide 17 mmol/L (22-30) L 12/26/16 14:48 Anion Gap 32 mmol/L 12/26/16 14:48 BUN 121 mg/dL (9-20) H 12/26/16 14:48 Creatinine 10.5 mg/dL (0.8-1.5) H 12/26/16 14:48 Estimated GFR 6 ml/min 12/26/16 14:48 BUN/Creatinine Ratio 11.52 % 12/26/16 14:48 Glucose 54 mg/dL (75-100) L 12/26/16 14:48 POC Glucose 232 (70-105) H 12/26/16 13:59 Calcium 7.6 mg/dL (8.4-10.2) L 12/26/16 14:48 Total Bilirubin 3.30 mg/dL (0.1-1.2) H 12/26/16 14:48 AST 34 units/L (5-40) 12/26/16 14:48 ALT 12 units/L (7-56) 12/26/16 14:48 Alkaline Phosphatase 133 units/L (35-129) H 12/26/16 14:48 Troponin T 0.179 ng/mL (0.00-0.029) H* 12/26/16 20:24 NT-Pro-B Natriuret Pep > 57489 pg/mL (0-900) H 12/26/16 14:48 Total Protein 7.1 g/dL (6.3-8.2) 12/26/16 14:48 Albumin 2.4 g/dL (3.9-5) L 12/26/16 14:48 Albumin/Globulin Ratio 0.5 % 12/26/16 14:48 Triglycerides 309 mg/dL (2-149) H 12/26/16 14:48 Cholesterol 67 mg/dL (50-199) 12/26/16 14:48 LDL Cholesterol Direct 2 mg/dL (50-130) L 12/26/16 14:48 HDL Cholesterol 4 mg/dL (40-59) L 12/26/16 14:48 Cholesterol/HDL Ratio 16.75 % 12/26/16 14:48 Short CBC 12/26/16 Range/Units 14:48 WBC 12.8 H (4.5-11.0) K/mm3 Hgb 7.4 L (11.8-15.2) gm/dl Hct 22.1 L (35.5-45.6) % Plt Count 169 (140-440) K/mm3 BMP 12/26/16 12/27/16 14:48 03:49 Sodium 132 L 133 L Potassium 4.5 4.8 Chloride 87.8 L 86.9 L Carbon Dioxide 17 L 15 L BUN 121 H 129 H Creatinine 10.5 H 11.1 H Glucose 54 L 45 L Calcium 7.6 L 7.8 L Cardiac Enzymes 12/26/16 12/26/16 12/26/16 Range/Units 14:48 17:10 20:24 Total Creatine Kinase (55-170) units/L CK-MB (CK-2) (0.0-4.0) ng/mL Troponin T 0.171 H* 0.165 H* 0.179 H* (0.00-0.029) ng/mL 12/26/16 12/27/16 Range/Units 20:24 03:49 Total Creatine Kinase 60 186 H (55-170) units/L CK-MB (CK-2) 1.8 2.9 (0.0-4.0) ng/mL Troponin T 0.194 H* (0.00-0.029) ng/mL Liver Function 12/26/16 12/27/16 Range/Units 14:48 03:49 Total Bilirubin 3.30 H 3.30 H (0.1-1.2) mg/dL AST 34 37 (5-40) units/L ALT 12 11 (7-56) units/L Alkaline Phosphatase 133 H 129 (35-129) units/L Albumin 2.4 L 2.2 L (3.9-5) g/dL - Imaging and Cardiology EKG: report reviewed (88/min Premature SVC's Non specific ST T wave abnormality) Chest x-ray: report reviewed Assessment and Plan Advance Directives: Yes (Full code) VTE prophylaxis?: Chemical Plan of care discussed with patient/family: Yes - Patient Problems (1) Acute coronary syndrome Current Visit: Yes Status: Acute Plan to address problem: R/o [place] protocol-serial cardiac enzymes and Lexiscan in AM. More in favor of reflux esophagitis.Patient vomiting 2 to 3 times (2) Reflux esophagitis Current Visit: Yes Status: Acute Plan to address problem: Patient initiated on Protonix for reflux esophagitis.To continue same for 6 months (3) HIV (human immunodeficiency virus infection) Current Visit: Yes Status: Chronic Plan to address problem: Cont Antiretrovirals (4) End stage renal disease on dialysis Current Visit: Yes Status: Chronic Plan to address problem: Cont HD (5) Severe malnutrition Current Visit: No Status: Chronic Plan to address problem: Patient looks cachectic.Ordered Albumin /prealbumin (6) COPD (chronic obstructive pulmonary disease) Current Visit: Yes Status: Chronic Qualifiers: COPD type: C Chronic bronchitis type: simple Emphysema type: E Qualified Code(s): J41.0 - Simple chronic bronchitis Plan to address problem: Duonebs prn q 6hrs (7) DVT prophylaxis Current Visit: No Status: Acute Plan to address problem: On Heparin sq
[2016-12-26] MEDS ORDERED: PERCOCET 5/325 PO PRN (21:18)
[2016-12-26] MEDS ORDERED: DULCOLAX PR PRN (21:18)
[2016-12-26] MEDS ORDERED: TYLENOL PO PRN (21:18)
[2016-12-26] MEDS ORDERED: DILAUDID IV PRN (21:18)
[2016-12-26] MEDS ORDERED: MILK OF MAGNESIA PO PRN (21:18)
[2016-12-26] MEDS ORDERED: PROVENTIL IH PRN (21:38)
[2016-12-26 21:46] LABS: Creatine Kinase MB 1.8 ng/mL (0.0-4.0)
[2016-12-27 04:39] LABS: Albumin 2.2 g/dL (3.9-5); Albumin/Globulin Ratio 0.4 %; Bilirubin,Total 3.3 mg/dL (0.1-1.2); Calcium 7.8 mg/dL (8.4-10.2); Chloride 86.9 mmol/L (98-107); Potassium 4.8 mmol/L (3.6-5.0); Total Protein 7.6 g/dL (6.3-8.2)
[2016-12-27 04:40] LABS: Creatine Kinase MB 2.9 ng/mL (0.0-4.0)
[2016-12-27 04:48] LABS: BUN/Creatinine Ratio 11.62
[2016-12-27] MEDS ORDERED: DUONEB *Not for PRN Use IH (06:56)
[2016-12-27 08:28] LABS: Creatine Kinase MB 3.1 ng/mL (0.0-4.0)
[2016-12-27 08:31] LABS: Albumin 2.1 g/dL (3.9-5); Albumin/Globulin Ratio 0.4 %; Bilirubin,Total 3.6 mg/dL (0.1-1.2); Calcium 7.4 mg/dL (8.4-10.2); Chloride 88.8 mmol/L (98-107); Potassium 5.1 mmol/L (3.6-5.0); Prealbumin 0.05 g/L (0.200-0.400); Total Protein 7.5 g/dL (6.3-8.2)
[2016-12-27 08:46] LABS: BUN/Creatinine Ratio 11.94
[2016-12-27] MEDS ORDERED: D50W (25GM) IV PRN (09:34)
[2016-12-27] MEDS ORDERED: LAMIVUDINE PO SCH (10:00)
[2016-12-27] MEDS ORDERED: D5/0.45NS 1,000 ML IV SCH (10:00)
[2016-12-27] MEDS ORDERED: SPIRIVA IH SCH (10:00)
[2016-12-27] MEDS ORDERED: NORVASC PO SCH (10:00)
[2016-12-27] MEDS: ZOFRAN IV PRN ×2 (10:36→19:52)
[2016-12-27] MEDS: DAPSONE PO SCH (10:37)
[2016-12-27] MEDS: NORVIR PO SCH (10:37)
[2016-12-27] MEDS: EPIVIR PO SCH (10:37)
[2016-12-27] MEDS: PROTONIX PO SCH (10:37)
[2016-12-27] MEDS: VIREAD PO SCH (10:37)
[2016-12-27] MEDS: PREZISTA PO SCH (10:38)
[2016-12-27] MEDS: RENVELA PO SCH ×3 (10:38→19:17)
--- NOTE | 2016-12-27 10:51 | Progress Note ---
Assessment and Plan Acute chest pain R/o [place] protocol-serial cardiac enzymes and Lexiscan in AM. More in favor of reflux esophagitis. Patient vomiting 2 to 3 times added PPI Reflux esophagitis Patient initiated on Protonix for reflux esophagitis.To continue same for 6 months HIV (human immunodeficiency virus infection) Cont Antiretrovirals End stage renal disease on dialysis Cont HD Severe malnutrition: Patient looks cachectic.Ordered Albumin /prealbumin COPD (chronic obstructive pulmonary disease) Duonebs prn q 6hrs Hypoglycemia - will start on D5 /2 NS DVT prophylaxis On Heparin sq Subjective Date of service: 12/27/16 Interval history: Pt seen and examined discussed with sister by phone he had HD today BG was at 40s this am, given 1 amp of D50 per family pt is having very poor appetite Pt is a poor historian and preferred not to answer question, states he is very tired Objective - Constitutional Vitals: Vital Signs - 12hr 12/26/16 12/27/16 12/27/16 23:00 00:07 05:06 Pulse Rate 80 85 88 Pulse Rate [ Anterior Bilateral Throughout] Respiratory 16 20 Rate Respiratory Rate [Anterior Bilateral Throughout] Blood Pressure 90/52 105/61 102/60 O2 Sat by Pulse 91 91 98 Oximetry 12/27/16 12/27/16 12/27/16 10:04 10:05 10:10 Pulse Rate Pulse Rate [ 89 94 H Anterior Bilateral Throughout] Respiratory Rate Respiratory 20 20 Rate [Anterior Bilateral Throughout] Blood Pressure O2 Sat by Pulse 95 Oximetry General appearance: Present: no acute distress, cachectic - EENT Eyes: PERRL, EOM intact ENT: hearing intact, clear oral mucosa Ears: bilateral: normal - Neck Neck: supple, normal ROM - Respiratory Respiratory effort: normal Respiratory: bilateral: CTA - Cardiovascular Rhythm: regular Heart Sounds: Present: S1 & S2. Absent: gallop, rub Extremities: pulses intact, No edema, normal color, Full ROM - Gastrointestinal General gastrointestinal: Present: soft, non-tender, non-distended, normal bowel sounds - Genitourinary Male genitourinary: deferred - Integumentary Integumentary: clear, warm, dry - Musculoskeletal Musculoskeletal: generalized weakness, other (generalizzed muscle wasting) - Neurologic Neurologic: moves all extremities - Psychiatric Psychiatric: cooperative - Labs CBC & Chem 7: 12/28/16 05:23 12/28/16 05:23 Labs: Abnormal lab results 12/27/16 12/27/16 12/27/16 Range/Units 03:49 03:49 07:05 Sodium 133 L 134 L (137-145) mmol/L Potassium 5.1 H (3.6-5.0) mmol/L Chloride 86.9 L 88.8 L (98-107) mmol/L Carbon Dioxide 15 L 16 L (22-30) mmol/L BUN 129 H 135 H (9-20) mg/dL Creatinine 11.1 H 11.3 H (0.8-1.5) mg/dL Glucose 45 L 38 L* (75-100) mg/dL Calcium 7.8 L 7.4 L (8.4-10.2) mg/dL Total Bilirubin 3.30 H 3.60 H (0.1-1.2) mg/dL Alkaline Phosphatase 132 H (35-129) units/L Total Creatine Kinase 186 H (55-170) units/L Troponin T 0.194 H* (0.00-0.029) ng/mL Albumin 2.2 L 2.1 L (3.9-5) g/dL Prealbumin 0.050 L (0.200-0.400) g/L 12/27/16 Range/Units 07:05 Sodium (137-145) mmol/L Potassium (3.6-5.0) mmol/L Chloride (98-107) mmol/L Carbon Dioxide (22-30) mmol/L BUN (9-20) mg/dL Creatinine (0.8-1.5) mg/dL Glucose (75-100) mg/dL Calcium (8.4-10.2) mg/dL Total Bilirubin (0.1-1.2) mg/dL Alkaline Phosphatase (35-129) units/L Total Creatine Kinase 179 H (55-170) units/L Troponin T (0.00-0.029) ng/mL Albumin (3.9-5) g/dL Prealbumin (0.200-0.400) g/L - Imaging and cardiology Chest x-ray: report reviewed
[2016-12-27] MEDS ORDERED: PNEUMOVAX 23 IM ONE (12:00)
--- NOTE | 2016-12-27 13:48 | Consultation ---
History of Present Illness - Reason for Consult Consult date: 12/27/16 end stage renal disease - History of Present Illness History obtained from medical records as patient is a poor historian. Patient presented to the emergency department via EMS from dialysis yesterday secondary to chest pain and shortness of breath. He did not complete dialysis. He reported a 3-4day history of this midsternal nonradiating chest pain and some shortness of breath. He presented with nausea and vomiting. Past History Past Medical History: anemia, ESRD, HIV/AIDS, liver disease, other (hepatitis C virus; AV malformation) Social history: no significant social history Family history: no significant family history Medications and Allergies Allergies Allergy/AdvReac Type Severity Reaction Status Date / Time No Known Allergies Allergy Unverified 12/07/16 13:48 Home Medications Medication Instructions Recorded Confirmed Last Taken Type ALBUTEROL Inhaler [ProAir HFA 8.5 gram IH Q4-6H PRN MDD 4 12/07/16 12/26/1603/04 History Inhaler] Albuterol Sulfate [Ventolin HFA] 8 gram IH PRN PRN 12/07/16 12/26/16 12/26/16 History AtorvaSTATin [Lipitor] 20 mg PO QHS 12/07/16 12/26/16 12/26/16 History Dapsone 100 mg PO DAILY 12/07/16 12/26/16 12/26/16 History Darunavir [Prezista] 800 mg PO DAILY 12/07/16 12/26/16 12/26/16 History Pnv with Ca#74/Iron/Folic Acid 1 tab PO DAILY 12/07/16 12/26/16 12/26/16 History [Vol-Plus Tablet] Ritonavir [Norvir] 100 mg PO DAILY 12/07/16 12/26/16 12/26/16 History Sevelamer Carbonate [Renvela] 800 mg PO TID 12/07/16 12/26/16 12/26/16 History Tenofovir [Viread] 300 mg PO DAILY 12/07/16 12/26/16 12/26/16 History Tiotropium [Spiriva] 1 puff IH DAILY 12/07/16 12/26/16 12/26/16 History amLODIPine [Norvasc] 10 mg PO DAILY 12/07/16 12/26/16 12/26/16 History lamiVUDine [Epivir Hbv] 75 mg PO DAILY 12/07/16 12/26/16 12/26/16 History Pantoprazole [Protonix TAB] 40 mg PO QDAY tablet 12/10/16 12/26/16 12/26/16 Rx Active Meds: Active Medications Acetaminophen (Tylenol) 650 mg PO Q4H PRN PRN Reason: Pain MILD(1-3)/Fever >100.5/YATES Albuterol (Proventil) 2.5 mg IH Q4HRT PRN PRN Reason: Dyspnea Amlodipine Besylate (Norvasc) 10 mg PO DAILY [facility] Last Admin: 12/27/16 10:38 Dose: Not Given Atorvastatin Calcium (Lipitor) 20 mg PO QHS [facility] Last Admin: 12/26/16 22:15 Dose: 20 mg Bisacodyl (Dulcolax) 10 mg OR QDAY PRN PRN Reason: Constipation unrelieved by MOM Dapsone (Dapsone) 100 mg PO DAILY [facility] Last Admin: 12/27/16 10:37 Dose: 100 mg Darunavir (Prezista) 800 mg PO DAILY [facility] Last Admin: 12/27/16 10:38 Dose: 800 mg Dextrose (D50w (25gm)) 50 ml IV PRN PRN PRN Reason: Hypoglycemia Hydromorphone HCl (Dilaudid) 0.5 mg IV Q3H PRN PRN Reason: Pain , Severe (7-10) Dextrose/Sodium Chloride (D5/0.45ns) 1,000 mls @ 75 mls/hr IV DIRECT [facility] Lamivudine (Epivir) 75 mg PO DAILY [facility] Last Admin: 12/27/16 10:37 Dose: 75 mg Magnesium Hydroxide (Milk Of Magnesia) 30 ml PO Q4H PRN PRN Reason: Constipation Ondansetron HCl (Zofran) 4 mg IV Q8H PRN PRN Reason: N/V unrelieved by Reglan Last Admin: 12/27/16 10:36 Dose: 4 mg Oxycodone/Acetaminophen (Percocet 5/325) 1 tab PO Q6H PRN PRN Reason: Pain, Moderate (4-6) Pantoprazole Sodium (Protonix) 40 mg PO QDAY [facility] Last Admin: 12/27/16 10:37 Dose: 40 mg Ritonavir (Norvir) 100 mg PO DAILY [facility] Last Admin: 12/27/16 10:37 Dose: 100 mg Sevelamer Carbonate (Renvela) 800 mg PO TIDWM [facility] Last Admin: 12/27/16 10:38 Dose: 800 mg Tenofovir Disoproxil Fumarate (Viread) 300 mg PO DAILY [facility] Last Admin: 12/27/16 10:37 Dose: 300 mg Tiotropium [place] (Spiriva) 1 puff IH DAILY [facility] Last Admin: 12/27/16 10:04 Dose: 1 puff Review of Systems Constitutional: no fever Cardiovascular: no shortness of breath Respiratory: no shortness of breath, no dyspnea on exertion Gastrointestinal: nausea, vomiting, no diarrhea, no constipation Exam - Vital Signs Vital signs: Vital Signs Pulse Ox 97 12/26/16 13:38 - General Appearance General appearance: chronically ill, frail EENT: ATNC Respiratory: Clear to Ascultation Heart: regular, S1S2 Gastrointestinal: Absent: tenderness Musculoskeletal: Present: other (no edema) Psychiatric: cooperative Results - Lab Results 12/26/16 14:48 12/27/16 07:05 Most recent lab results Calcium 7.4 mg/dL (8.4-10.2) L 12/27/16 07:05 Assessment and Plan Assessment * End-stage renal disease * Hypoglycemia * Metabolic acidosis * HIV/AIDS * Hep B/C cirrhosis * Anemia secondary to end-stage renal disease vs other Plan: * Continue HD MWF * UF as tolerated * Glycemic control per primary team * Dose medications for renal function
[2016-12-27] MEDS ORDERED: NACL 0.9% 100 ML IV PRN (14:07)
--- NOTE | 2016-12-27 14:07 | Admit Criteria Form ---
Admission Criteria Documentation: CHEST PAIN Clinical Indications for Admission to Inpatient Care ([place]/check or initial the applicable condition/criteria) Admission is indicated for chest pain and ANY ONE of the following (1)(2)(3)(4)( 5)(6)(7): [ ]I. Angina with acute coronary syndrome (Also use Myocardial Infarction or Angina guideline) [ ]II. Hemodynamic instability [X ]III. Angina needing acute intervention as indicated by ALL of the following (11)(12): [ ]a) Unstable angina is present as indicated by angina that is ANY ONE of the following: [ ]i) New onset [ ]ii) Nocturnal [ ]iii) Prolonged at rest [ ]iv) Progressive [X]b) Angina warrants acute intervention as indicated by ANY ONE of the following: [ ]i) Recurrent angina (e.g, not responding as previously to treatment) [ ]ii) Angina at rest or with low-level activities despite initial medical therapy [ ]iii) New or presumably new ST-segment depression on ECG [ ]iv) Signs or symptoms of heart failure (eg, dyspnea, pulmonary edema) [ ]v) New or worsening mitral regurgitation [ ]vi) Hemodynamic instability [ ]vii) Dangerous arrhythmia (eg, sustained ventricular tachycardia) [ ]viii) History of percutaneous coronary intervention within 6 months [ ]ix) History of coronary artery bypass graft surgery [ ]x) EDVIN risk score of 2 or greater[A] [ ]xi) History of Diabetes(14) [ ]xii) High-risk cardiac ischemia findings on noninvasive testing (e.g, echocardiogram, treadmill testing, nuclear scan) [ X]xiii) Chronic renal insufficiency (ie, estimated GFR less than 60 mL/min/1.732m) [ ]xiv) Left ventricular ejection fraction less than 40% [ ]IV. Evidence of PR (eg, cardiac biomarkers positive, ST-segment elevation on ECG) also use Myocardial Infarction Criteria Form. [ ]V. Pulmonary edema [ ]III. Respiratory distress [ ]IV. Chest pain indicative of serious diagnosis other than coronary artery disease (e.g., aorticdissection) Extended stay beyond goal length of stay may be needed for(3)(4)(10)(45)(48) [ ]a) Unstable angina [ ]b) Continued suspicion of acute coronary syndrome with inability to complete needed cardiac evaluation (eg, patient clinically unable to undergo stress testing) [ ]c) Myocardial infarction [ ]d) Specific condition diagnosed after evaluation (eg, pulmonary embolism, aortic dissection)(49)(50)(51) The original [facility] content created by [facility] [employer] has been revised. The portions of the content which have been revised are identified through the use of italic text or in bold, and [facility] [employer] has neither reviewed nor approved the modified material. All other unmodified content is copyright [facility] [employer]. Please see references footnoted in the original [facility] [employer] edition 2017 Admission Criteria Met: Yes
[2016-12-27 14:39] LABS: Creatine Kinase MB 3.6 ng/mL (0.0-4.0)
--- NOTE | 2016-12-27 15:30 | XRay Report ---
Portable chest: Chest pain. Multiple linear areas of increased opacity are present in the lower right lung and a couple also present in the left lung. Compared to prior examination of December 14 these have increased and there were not present at all on December 07. The heart is slightly enlarged and there is mild vascular congestion. Impressions: 1. Bilateral areas of atelectasis. 2. Mild congestive changes.
[2016-12-27] MEDS ORDERED: FOLIC ACID PO SCH (16:45)
[2016-12-27] MEDS ORDERED: IRON PO SCH (16:45)
[2016-12-27] MEDS ORDERED: [UNRECOGNIZED DRUG - OTHER] PO SCH (16:45)
[2016-12-27 22:46] LABS: BUN/Creatinine Ratio 9.8; Calcium 8.4 mg/dL (8.4-10.2); Chloride 92.4 mmol/L (98-107); Potassium 4.1 mmol/L (3.6-5.0)
[2016-12-28] MEDS ORDERED: ADRENALIN ONE ×2 (04:30→14:21)
[2016-12-28] MEDS ORDERED: SODIUM BICARBONATE IV ONE ×2 (04:30→14:21)
[2016-12-28] MEDS ORDERED: D50W (25GM) IV ONE ×2 (04:30→14:21)
--- NOTE | 2016-12-28 04:53 | Event Note ---
Date: 12/28/16 Code zaid called. Code run as per protocol. He was intubated. Bld glucose<20. Given 50% Dextrose iv x 2 amps. He was resuscitated. Will transfer to ICU. Obtain stat CBC, BMP. Chest X ray. Obtain EKG.
[2016-12-28 05:50] LABS: Basophils % (Auto) 0.5 % (0.0-1.8); Eosinophils % (Auto) 0.2 % (0.0-4.3); Hematocrit 20.2 % (35.5-45.6); Hemoglobin 6.6 gm/dl (11.8-15.2); Mean Corpuscular HGB Conc 33 % (32-34); Mean Corpuscular Hemoglobin 28 pg (28-32); Mean Corpuscular Volume 86 fl (84-94); Platelet Count 120 K/mm3 (140-440); Red Blood Count 2.36 M/mm3 (3.65-5.03); White Blood Count 15.2 K/mm3 (4.5-11.0)
[2016-12-28 06:01] LABS: BUN/Creatinine Ratio 10.17; Calcium 7.8 mg/dL (8.4-10.2); Chloride 92.4 mmol/L (98-107)
[2016-12-28] MEDS ORDERED: NACL 0.9% 1000 ML 1,000 ML IV ONE (06:18)
[2016-12-28 06:19] LABS: Red Cell Distribution Width 20.8 % (13.2-15.2)
[2016-12-28 06:30] LABS: Phosphorous 7.3 mg/dL (2.5-4.5)
--- NOTE | 2016-12-28 06:49 | Event Note ---
Date: 12/28/16 I came to see this patient on the fourth floor secondary to a CODE BLUE being called. Dr. Deng was bedside running the medical portion of ACLS. The patient was pulseless and unresponsive and needed intubation. Once the supplies were ready, I took a look with a Mac 3 blade. There was some yellowish thin secretions in the oropharynx that were suctioned and I had good visualization of the vocal cords. A 7.5 ET tube was then placed through the vocal cords to 24 at the lips. Air was placed inside of the bulb. There was good condensation within the tube. There was color change on capnography. Bilateral breath sounds were heard. There does not appear to be any complications secondary to this procedure. Chest x-ray shows appropriate placement of the ET tube.
[2016-12-28] MEDS ORDERED: LEVOPHED DRIP 4 MG/NS 250 ML 4 MG/250 ML BAG IV SCH (07:00)
[2016-12-28 07:05] LABS: ISTAT Base Excess -12; ISTAT HCO3 16.8; ISTAT PCO2 47.6 (35-45); ISTAT PH 7.156 (7.35-7.45); ISTAT PO2 97 (80-105); ISTAT SO2 95; ISTAT TCO2 18
[2016-12-28] MEDS ORDERED: ISOPTO TEARS 0.5% OU PRN (07:29)
[2016-12-28] MEDS ORDERED: D5/0.45NS 1,000 ML IV SCH (09:00)
[2016-12-28] MEDS ORDERED: ADRENALIN 8 MG in NACL 0.9% 250ML 242 ML IV SCH (09:00)
--- NOTE | 2016-12-28 09:12 | XRay Report ---
FINAL REPORT EXAM: XR ABDOMEN 1V AP HISTORY: NGT placement TECHNIQUE: Portable supine abdomen PRIORS: None. FINDINGS: Nasogastric tube terminates in the its stomach. The bowel gas pattern is nonspecific. There is gas within normal caliber bowel loops. There is some air and stool in the colon. Obstruction unlikely. IMPRESSION: Nasogastric tube terminates in stomach.
--- NOTE | 2016-12-28 09:15 | XRay Report ---
FINAL REPORT EXAM: XR CHEST 1V AP HISTORY: tube placement TECHNIQUE: AP chest PRIORS: 12/28/2016 FINDINGS: The endotracheal tube tip is 6 cm above the marcelo. Nasogastric tube terminates in the stomach. There are bilateral mixed interstitial and alveolar infiltrates with a similar distribution to the previous study. There is no pneumothorax. There is no pleural effusion. IMPRESSION: Mixed interstitial and alveolar infiltrates seen which has a similar distribution to the previous exam. Endotracheal tube tip is 6 cm above the marcelo. Projects the level of the clavicles and can be advanced slightly.
[2016-12-28] MEDS ORDERED: NACL 0.9% 500 ML 500 ML IV ONE (09:21)
--- NOTE | 2016-12-28 09:27 | Progress Note ---
Assessment and Plan S/p cardiopulmonary arrest - intubated during ACLS - on vent, cont Duonebs q 4hrs - consulted CC attending - likely from hypoglycemia and sepsis Sepsis with hypotension - will place on sepsis protocol - place on vancomycin and zosyn - newman cx - will consult ID Acute blood loss anemia - will transfuse 2 units PRBC GI bleed - has h/o GI AV malformation - will cont protonix BID, GI consult Acute chest pain admitted with LA protocol- monitored with serial cardiac enzymes and planned to have Lexiscan in AM. will cont to monitor, obtain 2d echo, consult cardiology Reflux esophagitis Patient initiated on Protonix for reflux esophagitis. HIV (human immunodeficiency virus infection) Cont Antiretrovirals, get ID recommendation End stage renal disease on dialysis getting HD per nephro Severe malnutrition: Patient looks cachectic. Ordered Albumin /prealbumin will start TF when GI bleed resolves COPD (chronic obstructive pulmonary disease) Duonebs q 4hrs Hypoglycemia - remains hypoglycemic with D5 1/2 NS - will change to d10w, glucagon X1 DVT prophylaxis SCD due to GI bleed Subjective Date of service: 12/28/16 Interval history: Pt seen and examined o/n event noted. persistantly hypoglycemic eventhough he was with D51/2 NS pt is unresponsive, hypotensive, on vent Levophed maxed out, had another cardiac arrest this morning called sister and updated her, she will be coming to the hospital soon they wish to keep him full code patient also developed GI bleed from the NG tube Objective - Exam Narrative Exam: General appearance: Present: intubated, cachectic - EENT Eyes: no EOM intact, fixed pupil, sluggishly reactive, discoloration of cornea ENT: Et on place Ears: no discharge - Neck Neck: supple, normal ROM - Respiratory Respiratory effort: on vent Respiratory: bilateral: CTA - Cardiovascular Rhythm: regular Heart Sounds: Present: S1 & S2. Absent: gallop, rub Extremities: pulses intact, No edema, - Gastrointestinal General gastrointestinal: Present: soft, non-tender, non-distended, normal bowel sounds - Genitourinary Male genitourinary: no ulcer, no lesion - Integumentary Integumentary: clear, cold, dry - Musculoskeletal Musculoskeletal: other (generalized muscle wasting) - Neurologic Neurologic: unresponsive - Psychiatric Psychiatric: unable to assess - Constitutional Vitals: Vital Signs - 12hr 12/27/16 12/28/16 12/28/16 22:24 00:21 05:25 Temperature 98.2 F Pulse Rate 117 H Respiratory 22 20 26 H Rate Blood Pressure 84/48 O2 Sat by Pulse 99 97 Oximetry 12/28/16 12/28/16 05:57 07:16 Temperature Pulse Rate 99 H 95 H Respiratory Rate Blood Pressure 76/49 82/46 O2 Sat by Pulse 96 95 Oximetry - Labs CBC & Chem 7: 12/28/16 05:23 12/28/16 05:23 Labs: Abnormal lab results 12/27/16 12/27/16 12/28/16 Range/Units 13:56 20:51 04:39 WBC (4.5-11.0) K/mm3 RBC (3.65-5.03) M/mm3 Hgb (11.8-15.2) gm/dl Hct (35.5-45.6) % RDW (13.2-15.2) % Plt Count (140-440) K/mm3 Lymph % (Auto) (13.4-35.0) % Seg Neutrophils % (40.0-70.0) % Seg Neutrophils # (1.8-7.7) K/mm3 POC ABG pH (7.35-7.45) POC ABG pCO2 (35-45) Chloride 92.4 L (98-107) mmol/L Carbon Dioxide (22-30) mmol/L BUN 50 H (9-20) mg/dL Creatinine 5.1 H D (0.8-1.5) mg/dL Glucose (75-100) mg/dL POC Glucose < 40 L (70-105) Calcium (8.4-10.2) mg/dL Phosphorus (2.5-4.5) mg/dL Total Creatine Kinase 206 H (55-170) units/L 12/28/16 12/28/16 12/28/16 Range/Units 05:23 05:23 05:23 WBC 15.2 H (4.5-11.0) K/mm3 RBC 2.36 L (3.65-5.03) M/mm3 Hgb 6.6 L (11.8-15.2) gm/dl Hct 20.2 L (35.5-45.6) % RDW 20.8 H (13.2-15.2) % Plt Count 120 L (140-440) K/mm3 Lymph % (Auto) 10.5 L (13.4-35.0) % Seg Neutrophils % 85.5 H (40.0-70.0) % Seg Neutrophils # 13.0 H (1.8-7.7) K/mm3 POC ABG pH (7.35-7.45) POC ABG pCO2 (35-45) Chloride 92.4 L (98-107) mmol/L Carbon Dioxide 17 L (22-30) mmol/L BUN 59 H (9-20) mg/dL Creatinine 5.8 H (0.8-1.5) mg/dL Glucose 125 H (75-100) mg/dL POC Glucose (70-105) Calcium 7.8 L (8.4-10.2) mg/dL Phosphorus 7.30 H (2.5-4.5) mg/dL Total Creatine Kinase (55-170) units/L 12/28/16 12/28/16 12/28/16 Range/Units 06:08 06:43 08:58 WBC (4.5-11.0) K/mm3 RBC (3.65-5.03) M/mm3 Hgb (11.8-15.2) gm/dl Hct (35.5-45.6) % RDW (13.2-15.2) % Plt Count (140-440) K/mm3 Lymph % (Auto) (13.4-35.0) % Seg Neutrophils % (40.0-70.0) % Seg Neutrophils # (1.8-7.7) K/mm3 POC ABG pH 7.156 L (7.35-7.45) POC ABG pCO2 47.6 H (35-45) Chloride (98-107) mmol/L Carbon Dioxide (22-30) mmol/L BUN (9-20) mg/dL Creatinine (0.8-1.5) mg/dL Glucose (75-100) mg/dL POC Glucose 66 L < 40 L (70-105) Calcium (8.4-10.2) mg/dL Phosphorus (2.5-4.5) mg/dL Total Creatine Kinase (55-170) units/L
[2016-12-28] MEDS ORDERED: NACL IV SCH (09:30)
[2016-12-28] MEDS ORDERED: D10W IV SCH (09:30)
[2016-12-28] MEDS ORDERED: GLUCAGEN IV ONE (09:30)
[2016-12-28] MEDS ORDERED: D10W 1,000 ML IV SCH ×2 (09:51→10:00)
[2016-12-28] MEDS ORDERED: VANCOMYCIN/NS 1 GM/250 ML 1 GM/250 ML BAG IV ONE (10:00)
[2016-12-28] MEDS ORDERED: ZOSYN/NS 4.5GM/100ML 4.5 GM/100 ML VIAL IV SCH (10:00)
--- NOTE | 2016-12-28 10:20 | Event Note ---
Date: 12/28/16 61-year-old male called to CODE BLUE for the second time. Initial noted 9 AM 2 doses of epinephrine given and pulse returned. Care past to hospitalist. 9:35 AM patient coded again. CPR initiated multiple doses of ACLS drugs given including calcium bicarbonate and epinephrine. A right femoral central line was placed during the code. Initial stick hit the femoral artery. Site was compressed for approximately 5 minutes. The area was not dilated. A small hematoma is located at the site. Second attempt central line placement successful. Right femoral central line placed. Patient was prepped and draped in a sterile fashion. Patient tolerated procedure.
--- NOTE | 2016-12-28 10:26 | Event Note ---
Date: 12/28/16 Code zaid called twice this am after transferring to ICU. ACLS initiated each time immediately pulse was regained, please see code sheet for details family updated after each code, they are on their way to hospital right femoral line placed during the last code by ER doc
--- NOTE | 2016-12-28 10:46 | Event Note ---
Date: 12/28/16 code zaid called again regained pulse after 6 minutes of ACLS Spoke with pt's sister again, notified me patient's daughter will be reaching to hospital soon.
[2016-12-28] MEDS ORDERED: LEVOPHED 8 MG in NACL 0.9% 250ML 242 ML IV SCH (11:00)
[2016-12-28] MEDS: RENVELA PO SCH (11:18)
[2016-12-28] MEDS: VIREAD PO SCH (11:19)
[2016-12-28] MEDS: PROTONIX PO SCH (11:19)
[2016-12-28] MEDS: PREZISTA PO SCH (11:19)
[2016-12-28] MEDS: DAPSONE PO SCH (11:19)
[2016-12-28] MEDS: NORVIR PO SCH (11:19)
[2016-12-28] MEDS: EPIVIR PO SCH (11:19)
[2016-12-28 11:20] VITALS: BP 70/42
--- NOTE | 2016-12-28 11:22 | Event Note ---
Date: 12/28/16 Patient coded again. regained pulse after ACLS Spoke with pt's sister Ms Mayo [phone] and she agreed to change the code status to DNR. patient's daughter at bedside, updated in details
[2016-12-28 11:30] LABS: Albumin 1.7 g/dL (3.9-5); Albumin/Globulin Ratio 0.4 %; Bilirubin,Total 3.2 mg/dL (0.1-1.2); Calcium 8.2 mg/dL (8.4-10.2); Chloride 93.5 mmol/L (98-107); Potassium 5.3 mmol/L (3.6-5.0)
--- NOTE | 2016-12-28 11:41 | Event Note ---
Date: 12/28/16 patient was noted to be asystole on monitor. He was pronounced on 11:23 am Daughters at bedside updated and notified the Sister phone no [phone]
--- NOTE | 2016-12-28 11:43 | Death Summary ---
Summary - Providers Date of service: 12/28/16 Consults: 12/26/16 21:20 Consult to Physician [CONS] Routine Consulting Provider: BRITT STOVALL Reason For Exam: esrd Place consult to:: renal Notified:: office Phone number called:: [phone] Was contact made?: Yes Time called:: 09:28 12/27/16 06:58 Consult to Dietitian/Nutrition [CONS] Routine Physician Instructions: Reason For Exam: Reason for Consult: Nutrition Recommendations Reason for Consult: Malnutrition 12/27/16 10:37 Consult to Physician [CONS] Routine Consulting Provider: MILKA SERVIN Reason For Exam: ESRD-known to Dr. 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:: production solderer cardiology Attending: LAURA VERAS - summary Date of admission: 12/26/16 21:18 Reason for admission: Chest pain - Final diagnosis (1) Cardiopulmonary arrest Note: Final diagnosis: (2) Chest pain Qualifiers: Chest pain type: unspecified Ischemic chest pain type: I Qualified Code(s ): R07.9 - Chest pain, unspecified Note: Final diagnosis: (3) Elevated troponin Note: Final diagnosis: (4) Reflux esophagitis Note: Final diagnosis: (5) AIDS Note: Final diagnosis: (6) COPD (chronic obstructive pulmonary disease) Qualifiers: COPD type: C Chronic bronchitis type: simple Emphysema type: E Qualified Code(s): J41.0 - Simple chronic bronchitis Note: Final diagnosis: (7) End stage renal disease on dialysis Note: Final diagnosis: (8) HIV (human immunodeficiency virus infection) Note: Final diagnosis: (9) Anemia in chronic illness Note: Final diagnosis: (10) Severe malnutrition Note: Final diagnosis:
[2016-12-28] MEDS ORDERED: DUONEB *Not for PRN Use IH SCH (12:00)
[2016-12-28] MEDS ORDERED: ZOSYN/NS 2.25 GM/50ML 2.25 GM/50 ML BAG IV SCH (12:00)
[2016-12-28] MEDS ORDERED: CALCIUM CHLORIDE IV ONE (14:21)
[2016-12-28] MEDS ORDERED: CORDARONE IV ONE (14:21)
[2016-12-28] MEDS ORDERED: ADRENALIN IV ONE (14:21)
[2016-12-28] MEDS ORDERED: XYLOCAINE CARDIAC IV ONE (14:21)
--- NOTE | 2016-12-30 08:22 | XRay Report ---
FINAL REPORT EXAM: XR CHEST 1V AP HISTORY: chest tube placement TECHNIQUE: Chest, portable PRIORS: 12/28/2016 FINDINGS: There is improved aeration in the left lower lobe as compared to the prior. Other mixed interstitial and alveolar infiltrates bilaterally are stable. There is no pleural effusion or pneumothorax seen. The endotracheal tube tip is 3.7 cm above the marcelo. The nasogastric tube is been removed in the interval. IMPRESSION: Improved aeration left lower lobe. Other bilateral mixed interstitial and alveolar infiltrates are similar to previous.
[2016-12-30] MEDS ORDERED: COZAAR PO SCH (22:00)
[2016-12-30] MEDS ORDERED: COREG PO SCH (22:00)
[2016-12-30] MEDS ORDERED: NORVASC PO SCH (22:00)
== END 2016-12-28 15:30 | DRG 974 ==
LOC: ED 13:30 → 4A 21:18 → CC1 12-28 05:12
PROVIDERS: ADMIT Internal Medicine; ATTEND Internal Medicine
PROC: 02HV33Z Insertion of Infusion Device into Superior Vena Cava, Percutaneous Approach (ICD-10-PCS; principal; 2016-12-26)
PROC: 5A1935Z Respiratory Ventilation, Less than 24 Consecutive Hours (ICD-10-PCS; 2016-12-26)
PROC: 0BH17EZ Insertion of Endotracheal Airway into Trachea, Via Natural or Artificial Opening (ICD-10-PCS; 2016-12-26)
PROC: 5A1D00Z (ICD-10-PCS; 2016-12-26)
PROC: 4A033R1 Measurement of Arterial Saturation, Peripheral, Percutaneous Approach (ICD-10-PCS; 2016-12-26)
PROC: 3E0234Z Introduction of Serum, Toxoid and Vaccine into Muscle, Percutaneous Approach (ICD-10-PCS; 2016-12-26)
PROC: B5181ZA Fluoroscopy of Superior Vena Cava using Low Osmolar Contrast, Guidance (ICD-10-PCS; 2016-12-26)
DX: A41.9 Sepsis, unspecified organism (principal); B20 Human immunodeficiency virus [HIV] disease; N18.6 End stage renal disease; E43 Unspecified severe protein-calorie malnutrition; I12.0 Hypertensive chronic kidney disease with stage 5 chronic kidney disease or end stage renal disease; I24.9 Acute ischemic heart disease, unspecified; D62 Acute posthemorrhagic anemia; Z68.1 Body mass index [BMI] 19.9 or less, adult; J41.0 Simple chronic bronchitis; K21.0 Gastro-esophageal reflux disease with esophagitis; E16.2 Hypoglycemia, unspecified; D63.1 Anemia in chronic kidney disease; Z66 Do not resuscitate; I46.9 Cardiac arrest, cause unspecified; Z87.891 Personal history of nicotine dependence; Z99.2 Dependence on renal dialysis
CPT/HCPCS: 36415; 36600; 71010; 74000; 78582; 80048; 80053; 80061; 82550; 82553; 82803; 82962; 83735; 83880; 84100; 84134; 84484; 85025; 85379; 86850; 86900; 86901; 86920; 87040; 90732; 93005; 93010; 94002; 94003; 94760; A9270-GY; A9540; A9558; J0171; J0282; J0885; J1610; J2001; J2405; J2543; J2930; J3370; J7050; J7131